=== PATIENT | female | born 1965 | race Caucasian/White ===

== ENCOUNTER 2017-05-03 00:47 | Inpatient (IN) | payer SELFPAY ==
[2017-05-03] VITALS (8 sets, daily range): BP systolic 103–121; BP diastolic 51–67; O2SAT 99
[~2017-05-03] VITALS: Ht 160 cm; Wt 91.0 kg
[2017-05-03] MEDS ORDERED: HYDR200T3 PO (01:03)
[2017-05-03] MEDS ORDERED: PRAV20TA2 PO (01:03)
[2017-05-03] MEDS ORDERED: WELLTAB40 PO (01:03)
[2017-05-03] MEDS ORDERED: LOPI600T PO (01:03)
[2017-05-03] MEDS ORDERED: AMAR1TAB5 PO (01:03)
[2017-05-03] MEDS ORDERED: ATEN50TA2 PO (01:03)
[2017-05-03] MEDS ORDERED: METF10004 PO (01:03)
[2017-05-03] MEDS ORDERED: BYDU1INJ SC (01:03)
[2017-05-03] MEDS ORDERED: PROBCAP8 PO (01:03)
[2017-05-03] MEDS ORDERED: LISI2.5T3 PO (01:03)
[2017-05-03] MEDS ORDERED: CYMB1CAP5 PO (01:03)
[2017-05-03] MEDS ORDERED: APIDINJ2 SC (01:03)
[2017-05-03] MEDS ORDERED: TRES1INJ2 SC (01:03)
[2017-05-03] MEDS ORDERED: [UNRECOGNIZED DRUG - CODE] PO (01:03)
[2017-05-03 02:07] LABS: ABG BASE EXCESS 2.1 (-2.0-2.0); ABG HCO3 26.8 MEQ/L (22.0-26.0); ABG PARTIAL PRESSURE CO2 42.5 mmHg (35.0-45.0); ABG PARTIAL PRESSURE O2 86.7 mmHg (75.0-100.0); ABG STANDARD HCO3 26.3 MEQ/L (22.0-26.0); ABG TOTAL CO2 28.1 MEQ/L (22.0-29.0); ABG pH (ARTERIAL) 7.418 UNITS (7.350-7.450)
[2017-05-03 02:13] LABS: BASO # 0.1 K/mm3 (0.0-0.2); BASO % 0.6 % (0.0-1.0); EOS # 0.4 K/mm3 (0.0-0.50); EOS % 3.6 % (0.0-3.0); LARGE UNSTAINED CELL # 0.1 K/mm3 (0.0-0.4); LARGE UNSTAINED CELL % 1.4 % (0.0-4.0); LYMPH # 2.2 K/mm3 (1.5-4.5); MEAN CORPUSCULAR HEMOGLOBIN 29.2 pg (27.0-33.0); MEAN CORPUSCULAR HGB CONC 34.4 g/dl (32.0-36.5); MEAN CORPUSCULAR VOLUME 84.9 fl (80.0-96.0); MONO # 0.6 K/mm3 (0.0-0.8); NEUTROPHILS # 6.7 K/mm3 (1.8-7.7); NEUTROPHILS % 67.3 % (36.0-66.0); PLATELET COUNT, AUTOMATED 307 k/mm3 (150-450); RED CELL DISTRIBUTION WIDTH 14.1 % (11.5-14.5); WHITE BLOOD COUNT 9.9 K/mm3 (4.0-10.0)
[2017-05-03 02:18] LABS: INR 0.94
[2017-05-03 02:31] LABS: ANION GAP 8 MEQ/L (8-16); BLOOD UREA NITROGEN 14 MG/DL (7-18); CARBON DIOXIDE LEVEL 28 MEQ/L (21-32); CHLORIDE LEVEL 102 MEQ/L (98-107); CREATININE FOR GFR 0.65 MG/DL (0.55-1.02); GLOMERULAR FILTRATION RATE > 60.0 (>51); GLUCOSE, FASTING 115 MG/DL (70-105); POTASSIUM SERUM 4.1 MEQ/L (3.5-5.1); SODIUM LEVEL 138 MEQ/L (136-145)
[2017-05-03] MEDS ORDERED: ISOVUE-370 76% 100ML VIAL (Q9967) As Ordered ONE (03:12)
--- NOTE | 2017-05-03 04:00 | REPUSA ---
CLINICAL HISTORY: Dyspnea, exclude PE. TECHNIQUE: Multiple incremental axial, coronal and oblique images are obtained from the thoracic inle t to the upper abdomen. Intravenous contrast material was administered as per pulmonary embolism prot ocol. COMMENTS: There is excellent opacification of pulmonary arterial system without evidence for pulmonary embolism . Aorta is of normal caliber without evidence for dissection or aneurysm. There is no evidence of pleural or parenchymal mass. There are no pleural effusions. There is no evid ence of hilar or mediastinal lymphadenopathy. The heart and great vessels are within normal limits. Images of the upper abdomen demonstrate no evidence of adrenal mass. The bony structures are free of lytic or blastic lesions. IMPRESSION: No evidence for pulmonary embolism. Basilar atelectatic lung changes. Thank you for your kind referral of this patient.
--- NOTE | 2017-05-03 04:40 | REPUSA ---
CLINICAL HISTORY: Altered level of consciousness. TECHNIQUE: Multiple axial brain CT scan sections were obtained from base to vertex without contrast a dministration. COMMENTS: The study shows normal configuration of sella turcica. There are no intra or extra-axial collections. There is no mass effect or midline shift. There is no evidence of hematoma formation. No hydrocephal us is present. No abnormal calcifications are noted. No significant abnormalities are seen either in the posterior fossa or supratentorial compartment. The sinuses and mastoid air cells are patent. IMPRESSION: No evidence of acute intracranial pathology. Thank you for your kind referral of this patient.
[2017-05-03] MEDS ORDERED: LORazepam 2 MG/ML VIAL (J2060) IV STA (05:25)
[2017-05-03 05:40] LABS: CSF TUBE# CELL CNT TUBE 4
[2017-05-03 05:41] LABS: APPEARANCE, CSF CLEAR (CLEAR); COLOR, CSF COLORLESS (COLORLESS); CSF DILUENT LOT # 6277
[2017-05-03 05:51] LABS: GLUCOSE CSF 80 MG/DL (40-75)
[2017-05-03 05:58] LABS: RBC CSF AUTO 88 /mm3 (0-0); WBC CSF AUTO 1 /mm3 (0-10)
[2017-05-03 05:59] LABS: CSF DIFF IF INDICATED? NO (NO)
[2017-05-03] MEDS ORDERED: GLIM2TAB PO (06:00)
[2017-05-03] MEDS ORDERED: TYLE500T78 PO (06:00)
[2017-05-03] MEDS ORDERED: TYLE1TAB5 PO (06:00)
[2017-05-03] MEDS ORDERED: ACET50TAOT PO (06:00)
[2017-05-03] MEDS ORDERED: TYLE650T35 PO (06:00)
[2017-05-03] MEDS ORDERED: PATIENT COMMENT ×2 (06:02→06:03)
[2017-05-03] MEDS ORDERED: GLUCAGON FOR INJ 1 MG VIAL (J1610) SC PRN (06:15)
[2017-05-03] MEDS ORDERED: DEXTROSE 50% 50 ML SYRINGE IV PRN (06:15)
[2017-05-03] MEDS ORDERED: GLUCOSE 4 GM CHEW TABLET PO PRN (06:15)
[2017-05-03] MEDS: NS 1,000 ML IV SCH ×2 (06:29→23:45)
[2017-05-03] MEDS: HumaLOG INSULIN (NovoLOG) PER UNIT SC SCH ×3 (08:23→17:08)
[2017-05-03] MEDS ORDERED: GLIM4TAB PO (08:59)
[2017-05-03 09:02] LABS: CSF TUBE# LDH TUBE 1; LDH CSF 31 U/L
[2017-05-03] MEDS: GEMFIBROZIL 600 MG TAB PO SCH ×2 (12:11→21:06)
[2017-05-03] MEDS: ENOXAPARIN 40 MG/0.4 ML SYRINGE (J1650) SC SCH (12:11)
[2017-05-03] MEDS: HYDROXYCHLOROQUINE 200 MG TAB PO SCH ×2 (12:12→21:05)
[2017-05-03] MEDS: ATENOLOL 50 MG TAB PO SCH (12:12)
[2017-05-03] MEDS: PRAVASTATIN 20 MG TAB PO SCH (12:12)
[2017-05-03] MEDS: buPROPion **XL** TABLET 150MG (WELLBUTRIN XL) PO SCH (12:13)
--- NOTE | 2017-05-03 13:19 | HPE ---
DATE OF ADMISSION: 05/03/2017 Most of the history is obtained from the patient who is a good historian. CHIEF COMPLAINT: Change in gait, sensory changes, moving of the body. 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 At that time, the patient states that she began to have weakness that slowly ascended up the legs and peaked in her abdomen and did not require that she be intubated. The patient's disease thereafter began to improve. The patient states that over the last three months she has had symptoms of tingling in both legs which has slowly now begun to be accompanied by weakness and difficulty with ambulation. The patient states this started in her ankles down and has progressed now to her knees and is slowly working up towards her hips and that she now feels tingling and changing sensation in bilateral hands at the tips. The patient came to the emergency room because she felt like she had chest tightness and felt like she might be beginning to have some shortness of breath. The patient does state that she has had a viral infection prior to the beginning of this back in November 2016. She has not been around any sick contacts recently. She has not had any other flares of a possible Guillain-Lusby type syndrome over the last few years. The patient denies any unintended weight loss. She denies any night sweats. PAST MEDICAL HISTORY (significant for): 1. Guillain-Lusby syndrome as above. 2. Lupus. 3. Diabetes mellitus type 2. 4. Obstructive sleep apnea, currently on CPAP therapy. 5. Hyperlipidemia. 6. Hypertension. 7. Depression. CURRENT MEDICATIONS (include): - atenolol 50 mg daily - Wellbutrin 300 mg daily - Cymbalta 30 mg at bedtime - gemfibrozil 600 mg twice daily - hydroxychloroquine 200 mg twice daily - lisinopril 2.5 mg daily - pravastatin 20 mg daily - glimepiride 2 mg twice daily - metformin 1000 mg twice daily - acetaminophen as needed - Apidra SoloStar 35 units subcutaneously twice daily - exenatide 2 mg subcutaneously weekly - Probiotic once daily - Tresiba 20 units subcutaneously daily ALLERGIES: - KEFLEX SOCIAL HISTORY: The patient denies any tobacco, ethanol or drug use. PREVIOUS SURGERIES (include): 1. Gallbladder resection. 2. sections times four. FAMILY HISTORY: Significant for diabetes mellitus in sister and mother. REVIEW OF SYSTEMS: Other than the above mentioned, denies any other constitutional symptoms or any cardiopulmonary, digestive, endocrine, hematological, psychiatric, neurological, musculoskeletal, or dermatological disease. PHYSICAL EXAMINATION: On admission to the emergency room, pulse 92, blood pressure 118/64, breathing 18, and afebrile. GENERAL APPEARANCE: 52-year-old white female currently laying in bed in anxiety. EYE EXAM: Pupils equally round and reactive to light. Without icterus. OROPHARYNGEAL EXAM: Oropharyngeal exam with dentition in good condition. NECK EXAM: No thyromegaly. Trachea midline. Neck is supple. LYMPHATICS EXAM: No cervical or axillary lymphadenopathy. CARDIAC EXAM: Regular rate and rhythm. No rubs, murmurs, or gallops. No jugular venous distention. No edema. RESPIRATORY EXAM: Clear to auscultation bilaterally with good effort. ABDOMINAL EXAM: Nondistended. Nontender. Normal bowel sounds. No masses palpated. PERIPHERAL EXAM: No clubbing, cyanosis or edema noted. NEUROLOGICAL EXAM: Notable for inability to elicit reflexes at the knees bilaterally and at the ankles bilaterally. The patient has normal strength in the upper extremities bilaterally and slightly decreased strength in the lower extremities bilaterally. Gait is extremely abnormal with shuffling and inability to machine pecan picker legs, which appears to be a decrease in strength proximally. LABORATORIES: The patient's white cell count is 10,000, hematocrit 33, platelet count of 307, with MCV of 85, RDW 14. Chemistries show a sodium of 138, potassium 4.1, BUN and creatinine of 14 over 0.65, total CK 55, normal troponin. PT/INR normal. ABG shows a pH of 7.418, pCO2 43, pO2 87, and a bicarbonate of 27. The patient had a lumbar puncture (LP) done and spinal fluid shows 1 white cell and 80 red blood cells with an elevation in glucose to 80 and an elevation in protein to 110. The rest is currently pending. The patient also had a CTA of the chest which was negative for pulmonary embolism (PE). She underwent a CT of the brain which was essentially unremarkable. ASSESSMENT: This is a 52-year-old female currently undergoing workup as an outpatient for possible Guillain-Lusby syndrome. The patient has abnormalities in gait and now has lumbar puncture showing elevated protein with normal white cell count which is suspicious for Guillain-Lusby among other demyelinating type inflammatory syndromes. The patient is exhibiting both sensory and motor abnormalities which make myasthenia gravis as well as Eaton-Lambert less likely. The patient is going to be admitted for further work up at this time and treatment. PROBLEMS: 1. Abnormal gait: Will admit the patient as an inpatient to the medical-surgical unit, LP has been done and is currently pending at this time, will add Lyme antibody and check Lyme peripherally as well, obtain a neurological evaluation for further evaluation, suspicious for possible Guillain-Lusby syndrome, consider MRI of the spine, consider EMG, physical therapy and occupational therapy evaluations will also be given. 2. Diabetes mellitus type 2: Will continue with insulin and sliding scale at this time. 3. Obstructive sleep apnea: Will continue with CPAP and oxygen at this time. 4. Hyperlipidemia: Will continue with current medications. For deep vein thrombosis (DVT) prophylaxis, the patient will be on Lovenox once daily and diet will be a regular diet.
--- NOTE | 2017-05-03 13:21 | REP ---
MRI cervical spine without and with IV gadolinium: History: Guillain-[place] versus transverse myelitis. Gadolinium enhancement dose: 18 ml of intravenous ProHance. Technique: Sagittal and axial T1 and T2-weighted scans are acquired in the usual fashion with and without fat saturation. Sequences include spin echo, turbo spin-echo, and STIR imaging sequences. Post gadolinium enhanced axial and sagittal images are included. MRI findings: There is straightening of the normal cervical lordosis. Cortical and medullary bone signal intensity are normal. There are degenerative disc changes at C5-C6 and C6-C7. At C5-6, axial and sagittal images demonstrate a large disc herniation left paracentral orientation producing moderate to severe cord compression and central canal stenosis. The disc protrusion measures 6 mm in anteroposterior by 12 mm in medial to lateral by 14 mm in craniocaudal span. There is both cranial and caudal extension. The cord is displaced dorsally into the right and compressed and indented. There is bilateral uncovertebral spurring mild in degree at C5-6. At C6-7, there are similar changes somewhat less pronounced with moderate sized left paracentral disc protrusion measuring 5 mm x 9 mm x 10 mm. There is moderate cord compression along the left ventral lateral margin. There is uncovertebral spurring bilaterally at C6-7. This is a little more pronounced than that seen at C5-6. Central canal stenosis is seen. At C7-T1, there is a central focal disc protrusion effacing the ventral subarachnoid space but not compressing the cord. At C4-5, there is mild diffuse disc bulging without cord compression. At C3-4 and C2-3, no significant finding. Impression: Moderate cord compression seen due to large left-sided disc herniations at C5-6 and C6-7. Smaller central C7-T1 disc herniation is seen. Diffuse disc bulging C4-5. No abnormal cord signal intensity is seen. Signed by Slade Jimenez MD 05/03/2017 01:40 P
--- NOTE | 2017-05-03 13:21 | REP ---
Thoracic spine MRI without and with IV gadolinium: History: Guillain-Webster syndrome versus transverse myelitis. Numbness and pain in hands. Numbness from the feet to the chest. No known injury. Symptoms 3 weeks in duration. Technique: Sagittal and axial T1 and T2-weighted scans are acquired in the usual fashion with and without fat saturation. Sequences include spin echo, turbo spin-echo, and STIR imaging sequences. Post gadolinium enhanced axial and sagittal T1-weighted images are also acquired. MRI findings: Thoracic vertebral body heights are preserved. Alignment is normal. There is mild degenerative disc disease in the mid thoracic and lower thoracic spine. No bony destructive lesion is seen. The thoracic cord is normal in coarse, caliber, and signal intensity on T1 and T2-weighted scans. There is a right paracentral focal disc protrusion at the T7-T8 intervertebral disc. This flattens the ventral margin of the thecal sac and subtly flattens the ventral margin of the cord. There is mild central bulging of the T11-12 disc margin. No cord compression is seen. No other thoracic disc herniation is appreciated. No neural foraminal lesion is seen. No abnormal cord edema is appreciated. Post gadolinium enhanced images show no abnormal gadolinium enhancement. Impression: Focal disc protrusion in the thoracic spine at the T7-T8 indenting the ventral margin of the cord. Mild degenerative disc changes. No other cord compressive lesion seen. No abnormal cord signal intensity to suggest transverse myelitis or demyelinating lesion. Otherwise unremarkable MRI thoracic spine. Signed by Slade Jimenez MD 05/03/2017 01:40 P
--- NOTE | 2017-05-03 13:21 | REP ---
MRI BRAIN WITHOUT AND WITH IV GADOLINIUM: HISTORY: Numbness and pain in the feet, chest and hands for approximately [address] study is from earlier on this date. TECHNIQUE: Axial and sagittal imaging planes are utilized for T1 and T2-weighted scans. Sequences include spin-echo, fast spin echo, FLAIR, and diffusion weighted sequences. Post gadolinium enhanced imaging is acquired as well. The gadolinium enhancement dose is 18 mL of intravenous ProHance. MRI FINDINGS: Bony calvarium is intact. There is no MR evidence of significant paranasal sinus disease. No intraorbital abnormality is seen. The deep facial and skull base soft tissues are normal and symmetric. Craniocervical junction is unremarkable as is upper cervical cord. There is no evidence of intracranial mass lesion. No extra-axial fluid collection is seen. There is no evidence of infarction or acute ischemia on diffusion weighted scans. No significant white matter lesion is seen. Post gadolinium enhanced images show no abnormal gadolinium enhancement. IMPRESSION: Unremarkable brain MRI study without and with IV gadolinium. No acute intracranial abnormality. Signed by Slade Jimenez MD 05/03/2017 01:40 P
--- NOTE | 2017-05-03 15:16 | REP ---
CT study of the cervical spine without contrast: History: Question DISH. Preop for navigation stealth protocol. Moderate cord compression due to disc protrusion seen on MR cervical spine. Technique: Helical scanning is acquired and overlapping 2 mm high resolution axial images were generated and reviewed at bone and soft tissue window settings. Coronal and sagittal multiplanar re-formations images are generated. CT findings: There is straightening of the normal cervical lordosis. There is no evidence of cervical spine element fracture. No skull base fracture is seen. Cervical vertebral body heights are preserved. Alignment is normal. Facet joints are normally aligned bilaterally at each cervical level on multiplanar re-formations images. There is no evidence of intraspinal or paraspinal hematoma. No extra vertebral abnormality is seen. There is osteoarthritic sclerosis and narrowing at the articulation between the dens and the anterior arch of C1. At C5-6, there is disc space narrowing. There is a large densely calcified left paracentral disc protrusion osteophyte complex at C5-6 producing central canal stenosis just to the left of midline. This corresponds with the MR findings. At C6-7, there is a similar calcified disc protrusion complex to the left of midline producing central canal stenosis as well. The canal shows mild congenital stenosis as well at these two levels. Impression: Heavily calcified disc herniation and osteophyte complex to the left of midline at C5-6 and at C6-7. Moderate central canal stenosis at both of these levels. This corresponds to the MR findings. Signed by Slade Jimenez MD 05/03/2017 04:31 P
[2017-05-03] MEDS ORDERED: IMMUNE GLOBULIN IV SCH (19:45)
[2017-05-03] MEDS ORDERED: DILUENT IV SCH (19:45)
[2017-05-03] MEDS: DULoxetine 30 MG CAP (CYMBALTA) PO SCH (21:06)
[2017-05-03] MEDS: LISINOPRIL *2.5 MG* TAB PO SCH (21:06)
[2017-05-03] MEDS: IMMUNE GLOBULIN 10% 5GM 5 GM in APPROPRIATE DILUENT 1 EA IV SCH (21:12)
[2017-05-03] MEDS: IMMUNE GLOBULIN 10% 10GM 100ML 10 GM in APPROPRIATE DILUENT 1 EA IV SCH (22:05)
[2017-05-03] MEDS: IMMUNE GLOBULIN 10% 20GM 200ML 20 GM in APPROPRIATE DILUENT 1 EA IV SCH (22:38)
[2017-05-04] VITALS (18 sets, daily range): BP systolic 103–127; BP diastolic 51–62
[2017-05-04] MEDS: NS 1,000 ML IV SCH (01:56)
[2017-05-04 05:33] LABS: BASO % 0.5 % (0.0-1.0); EOS # 0.2 K/mm3 (0.0-0.50); LARGE UNSTAINED CELL # 0.1 K/mm3 (0.0-0.4); LARGE UNSTAINED CELL % 0.8 % (0.0-4.0); LYMPH # 1.1 K/mm3 (1.5-4.5); LYMPH % 13.8 % (24.0-44.0); MEAN CORPUSCULAR HEMOGLOBIN 29.7 pg (27.0-33.0); MEAN CORPUSCULAR HGB CONC 34.3 g/dl (32.0-36.5); MEAN CORPUSCULAR VOLUME 86.5 fl (80.0-96.0); MONO # 0.4 K/mm3 (0.0-0.8); MONO % 5.9 % (0.0-5.0); NEUTROPHILS # 5.7 K/mm3 (1.8-7.7); NEUTROPHILS % 75.9 % (36.0-66.0); PLATELET COUNT, AUTOMATED 245 k/mm3 (150-450); WHITE BLOOD COUNT 7.5 K/mm3 (4.0-10.0)
[2017-05-04 05:52] LABS: ALBUMIN 3.7 GM/DL (3.2-5.2); ALBUMIN/GLOBULIN RATIO 0.95 (1.00-1.93); ALKALINE PHOSPHATASE 84 U/L (45-117); ALT/SGPT 26 U/L (12-78); ANION GAP 9 MEQ/L (8-16); AST/SGOT 18 U/L (15-37); BILIRUBIN,TOTAL 0.4 MG/DL (0.2-1.0); BLOOD UREA NITROGEN 11 MG/DL (7-18); CALCIUM LEVEL 8.4 MG/DL (8.5-10.1); CARBON DIOXIDE LEVEL 28 MEQ/L (21-32); CHLORIDE LEVEL 105 MEQ/L (98-107); CREATININE FOR GFR 0.53 MG/DL (0.55-1.02); GLOMERULAR FILTRATION RATE > 60.0 (>51); GLUCOSE, FASTING 113 MG/DL (70-105); POTASSIUM SERUM 4.1 MEQ/L (3.5-5.1); SODIUM LEVEL 142 MEQ/L (136-145); TOTAL PROTEIN 7.6 GM/DL (6.4-8.2)
[2017-05-04] MEDS: HumaLOG INSULIN (NovoLOG) PER UNIT SC SCH ×4 (07:22→21:10)
[2017-05-04] MEDS: GEMFIBROZIL 600 MG TAB PO SCH ×2 (08:42→21:09)
--- NOTE | 2017-05-04 08:42 | ECGEPIP ---
Stationary ECG Study [facility] - ED Test Date: 2017-05-03 Pat Name: KANDIS MEDINA Department: Room: - Gender: F Digital Marketing Manager: : 1965 Requested By: COLTON ZENG Order Number: [id number] Reading MD: Rubi Schneider Measurements Intervals Boyd Rate: 87 P: 35 SC: 136 QRS: 45 QRSD: 92 T: 35 QT: 361 QTc: 436 Interpretive Statements SINUS RHYTHM NSTTW ABNORMALITY, CLINICAL CORRELATION NO PRIOR FOR COMPARISON Electronically Signed On 05-04-2017 8:42:28 EDT by Rubi Schneider
[2017-05-04] MEDS: ATENOLOL 50 MG TAB PO SCH (08:43)
[2017-05-04] MEDS: buPROPion **XL** TABLET 150MG (WELLBUTRIN XL) PO SCH (08:43)
[2017-05-04] MEDS: ENOXAPARIN 40 MG/0.4 ML SYRINGE (J1650) SC SCH (08:43)
[2017-05-04] MEDS: HYDROXYCHLOROQUINE 200 MG TAB PO SCH ×2 (08:43→21:09)
[2017-05-04] MEDS: PRAVASTATIN 20 MG TAB PO SCH (08:43)
--- NOTE | 2017-05-04 15:03 | CR ---
DATE OF CONSULTATION: 05/03/2017 REASON FOR CONSULTATION: Evaluation for lower extremity weakness and suspicion for demyelinating polyneuropathy. HISTORY OF PRESENT ILLNESS: Eliz House is a 52-year-old female with past medical history significant for Guillain-[place] syndrome at the age of 19. The patient states that she was at her normal state of health until around November, where she came down with the flu. Soon after that the patient started to notice worsening baseline paresthesias of her toes traveling up her leg. The patient noted both legs involved. The patient's symptoms traumatically worsened over the past 2 weeks. She underwent EMG nerve conduction study approximately within the past 2 weeks with evidence of acute on chronic active denervation of the lower extremities with axonal and demyelinating sensory greater than peripheral polyneuropathy. The patient states that the symptoms have been ascending in nature starting in the toes, feet and ankles up the legs. By the time they reached her knees, she started to notice them in her fingertips. This included the palms of her hands. The patient has had significant weakness in bilateral deltoids, triceps, all lower extremity musculature. The patient denies any change in bowel or bladder habits. MRI of the cervical spine reveals moderate cord compression at C5-6, C6-7. Literature does point towards ascending paralysis and paresthesias occurring in cord compression, which can also be seen in chronic inflammatory demyelinating polyneuropathy (CIDP). The patient did have a lumbar puncture (LP) which showed elevated protein of 108.7 with a glucose of 80. Patients who have poorly controlled diabetes can show elevation of protein within the spinal fluid. Patients who have cord compression can also show signs of elevated protein in the spinal fluid. The patient states that between Sunday and this past Sunday the numbness significantly progressed. At one point she felt that her breathing was compromised; however, she states that she was most likely panicking and her breathing today is at her baseline state. The patient has history of lupus with flare-ups including hip pain, butterfly rash. The patient states she has fallen three times in the past month. The patient tries to ambulate with stiffened legs to prevent falls. The patient has already been evaluated by neurosurgery, Dr. Gavino Campos, who has discussed his surgical opinion with the patient. The patient is fully aware that her cervical spinal stenosis is quite significant and she will likely need surgery regardless if the patient has CIDP with progressive ascending paralysis and weakness. The patient is agreeable to go ahead and start a 5-day course of IVIG dosed at 0.4 gm/kg per day for 5 days. She will assess if there is any improvement in her paresthesias and weakness. Physical therapy is recommended to be completed throughout the entire hospital stay. This will determine whether the patient would be a candidate for acute versus subacute rehabilitation upon discharge. The patient denies any involvement of cranial nerves. She denies any diplopia, change in vision, taste, speech, hearing. PAST MEDICAL HISTORY: 1. Guillain-[place] syndrome. 2. Lupus. 3. Diabetes type 2. 4. Obstructive sleep apnea currently on continuous positive airway pressure (CPAP) therapy. 5. Hyperlipidemia. 6. Hypertension. 7. Depression. 8. Obesity. PRESENT MEDICATIONS: - atenolol 50 mg by mouth daily - Wellbutrin 300 mg by mouth daily - Cymbalta 30 mg by mouth nightly - gemfibrozil 600 mg by mouth twice a day - hydroxychloroquine 200 mg by mouth twice a day - lisinopril 2.5 mg by mouth daily - lovastatin 20 mg by mouth daily - glimepiride 2 mg by mouth twice a day - metformin 1000 mg by mouth twice a day - acetaminophen as needed - Apidra SoloSTAR 35 units subcutaneously twice a day - exenatide 2 mg subcutaneous weekly - probiotic by mouth daily - Tresiba 20 units subcutaneous daily ALLERGIES: KEFLEX. SOCIAL HISTORY: The patient denies use of any alcohol, tobacco or illicit drugs. PAST SURGICAL HISTORY: 1. Cholecystectomy. 2. section times four. FAMILY HISTORY: Noncontributory. REVIEW OF SYSTEMS: 14-point review of systems obtained and is negative except as per history of present illness (HPI). PHYSICAL EXAMINATION: Blood pressure 109/53, pulse rate is 92, oxygenation 96% on room air, respiratory rate 18, temperature 97.7 degrees Fahrenheit. Current height 5 feet 3 inches. Current weight is 90.2 kg. The patient is alert, oriented to person, place and time. Speech, language, comprehension and repetition are intact. Pupils are 3 mm, round, reactive to light. Extraocular movements are intact in all directions without nystagmus. Sensation V1, V2, V3 is intact to light touch. Palate elevates symmetrically. Tongue is midline. No weakness of sternocleidomastoid bilaterally. Hearing subjectively equal to finger rub. Motor examination: There is no pronator drift. The patient demonstrates 4/5 weakness of bilateral deltoids, 4- in bilateral triceps, 4+ in bilateral biceps, 4- in bilateral wrist extensor, finger extensor, finger flexors are 4+, iliopsoas is 4+, quadriceps are 5, anterior tibialis are 4-. Deep tendon reflexes are absent throughout with trace at the triceps bilaterally. Babinski signs are absent. Sensory demonstrates significant vibratory loss at the great toes, ankles and patellas. The patient's gait is extremely unsteady. The patient stiffens up and has to hold onto objects near her to maintain balance. Coordination: Normal [id number] without any signs of ataxia or dysmetria. Sensory in the upper extremities is intact to temperature and light touch. ASSESSMENT: 1. Weakness in arms and legs, possibly multifactorial. 2. MRI evidence of moderate cord compression at C5-6, C6-7 with some component of myelopathy and weakness within the arms and legs. 3. Focal disc protrusion at T7-T8 indenting ventral margin of the spinal cord possibly causing transverse myelitis like symptom at that level. 4. Ascending sensory changes, as well as weakness which can be seen in cases of cord compression; however, can also be seen in cases of chronic inflammatory demyelinating polyneuropathy. Given most recent EMG nerve conduction study evidence of acute on chronic active denervation of the lower extremity musculature, chronic inflammatory demyelinating polyneuropathy (CIDP) can be considered in conjunction with elevated cerebrospinal fluid (CSF) protein. Elevated CSF protein can be seen in patients with cord compression, as well as poorly controlled diabetics. PLAN: 1. The patient agrees to go ahead and start treatment for suspected CIDP with IVIG 0.4 gm/kg each day for 5 days. 2. Continue aggressive physical therapy (PT), occupational therapy (OT). 3. Management of moderate cervical cord compression at C5-6, C6-7 as per neurosurgery. 4. The patient will likely need EMG nerve conduction study completed as an outpatient in the upper extremities. 5. The patient can followup at the [facility] office 2-4 weeks after discharge for further followup and evaluation.
--- NOTE | 2017-05-04 15:07 | IPNPDOC ---
Text Note Date of Service The patient was seen on 05/04/17. NOTE Subjective: Patient is a 52 year old female with a PMHx of HTN, DLP, NIDDM2, WALKER on CPAP, SLE, Hx of GBS (1983) and Depression who presented to the ER with complaints of difficulty with ambulation and ascending sensory changes with possible weakness. She has noted that she has had these symptoms start on her feed and progress up to her hips. She recently started experiencing this on her hands. She noted that her abdomen was beginning to feel abnormal as well. Patient was seen and examined at the bedside. She has received a dose of IVIG yesterday and notes that today she may have had some improvement, however she is not sure if it is significant. She denies any SOB, cough or incontinence. She noted that she has been having a difficult time coughing Objective: Vitals (See below) General: Lying in bed, no acute distress, comfortable, AAOx3 HEENT: NC, AT CVS: RRR, +S1S2 Lungs: Fair air entry b/l, -w/r/r Abdomen: Soft, ND, NT, +BSx4 Extremities: - Edema, - Calf tenderness Assessment and plan: 1. Difficulty with ambulation / Ascending paralysis - possibly 2/2 GBS, possibly 2/2 herniation of disks and cord compression - Presented with worsening symptoms; reported to have sensory changes from December , weakness from February - Recent outpatient EMG nerve conduction of lower extremities revealed acute on chronic active denervation of the lower extremity - Physical with mild weakness bilaterally at lower legs - s/p Lumbar puncture; elevation in proteins; remainder of workup pending - Brain MRI 05/03: negative - Cervical MRI 05/03: C5-6 & C6-7 with disc herniations and moderate cord compression - Thoracic MRI 05/03: T7-8 disc protrusion with indenting of ventral margin of cord - c/w FVC and NIF monitoring [id number]; ICU setting for monitoring of respiratory compromise - c/w IVIG (Day #2 of 5) - Dr. Fatima (Neuro) and Dr. Campos (Neurosurgery) on consult; 2. HTN - c/w Atenolol and Lisinopril 3. DLP - c/w Gemfibrozil and Pravastatin 4. NIDDM2 - c/w ISS 5. WALKER on CPAP 6. SLE - c/w Hydroxychloroquine 7. Depression - c/w Duloxetine and Bupropion 8. DVT prophylaxis - c/w Lovenox VS,Fishbone, I+O VS, Fishbone, I+O Laboratory Tests 05/04/17 04:49 Red Blood Count 3.74 L, Mean Corpuscular Volume 86.5, Mean Corpuscular Hemoglobin 29.7, Mean Corpuscular Hemoglobin Concent 34.3, Red Cell Distribution Width 14.0, Neutrophils (%) (Auto) 75.9 H, Lymphocytes (%) (Auto) 13.8 L, Monocytes (%) (Auto) 5.9 H, Eosinophils (%) (Auto) 3.0, Basophils (%) ( Auto) 0.5, Neutrophils # (Auto) 5.7, Lymphocytes # (Auto) 1.1 L, Monocytes # ( Auto) 0.4, Eosinophils # (Auto) 0.2, Basophils # (Auto) 0.0, Calcium Level 8.4 # L, Aspartate Amino Transf (AST/SGOT) 18, Alanine Aminotransferase (ALT/SGPT) 26 , Alkaline Phosphatase 84, Total Bilirubin 0.4, Total Protein 7.6, Albumin 3.7 Vital Signs Date Time Temp Pulse Resp B/P (MAP) Pulse Ox O2 Delivery O2 Flow Rate FiO2 05/04/17 12:00 100.0 91 17 104/60 (75) 97 Room Air I&O- Last 24 Hours up to 6 AM 05/04/17 06:00 Intake Total 2870 ml Output Total 1850 ml Balance 1020 ml MARITA PRASAD MD May 04, 2017 14:47
[2017-05-04] MEDS: ACETAMINOPHEN TAB 650MG DOSE (2X325MG) PO PRN (15:40)
[2017-05-04] MEDS: LISINOPRIL *2.5 MG* TAB PO SCH (21:09)
[2017-05-04] MEDS: DULoxetine 30 MG CAP (CYMBALTA) PO SCH (21:09)
[2017-05-04] MEDS: IMMUNE GLOBULIN 10% 10GM 100ML 10 GM in APPROPRIATE DILUENT 1 EA IV SCH (21:11)
[2017-05-04] MEDS: IMMUNE GLOBULIN 10% 20GM 200ML 20 GM in APPROPRIATE DILUENT 1 EA IV SCH (22:51)
[2017-05-05] VITALS: BP 108/51
[2017-05-05] MEDS: IMMUNE GLOBULIN 10% 5GM 5 GM in APPROPRIATE DILUENT 1 EA IV SCH ×2 (00:06→20:56)
[2017-05-05 04:00] VITALS: BP 115/56
[2017-05-05 07:30] LABS: INR 0.99
[2017-05-05 08:00] VITALS: BP 123/61
[2017-05-05 08:02] LABS: ALBUMIN 3.9 GM/DL (3.2-5.2); ALBUMIN/GLOBULIN RATIO 0.81 (1.00-1.93); ALKALINE PHOSPHATASE 83 U/L (45-117); ALT/SGPT 30 U/L (12-78); ANION GAP 8 MEQ/L (8-16); AST/SGOT 32 U/L (15-37); BILIRUBIN,TOTAL 0.3 MG/DL (0.2-1.0); BLOOD UREA NITROGEN 10 MG/DL (7-18); CALCIUM LEVEL 8.7 MG/DL (8.5-10.1); CARBON DIOXIDE LEVEL 26 MEQ/L (21-32); CHLORIDE LEVEL 107 MEQ/L (98-107); CREATININE FOR GFR 0.58 MG/DL (0.55-1.02); GLOMERULAR FILTRATION RATE > 60.0 (>51); GLUCOSE, FASTING 139 MG/DL (70-105); MAGNESIUM LEVEL 2.3 MG/DL (1.8-2.4); POTASSIUM SERUM 3.9 MEQ/L (3.5-5.1); SODIUM LEVEL 141 MEQ/L (136-145); TOTAL PROTEIN 8.7 GM/DL (6.4-8.2)
[2017-05-05 08:05] LABS: BASO % 0.8 % (0.0-1.0); EOS # 0.2 K/mm3 (0.0-0.50); EOS % 5.4 % (0.0-3.0); LARGE UNSTAINED CELL # 0.1 K/mm3 (0.0-0.4); LARGE UNSTAINED CELL % 1.5 % (0.0-4.0); LYMPH # 1.1 K/mm3 (1.5-4.5); LYMPH % 21.2 % (24.0-44.0); MEAN CORPUSCULAR HEMOGLOBIN 29.7 pg (27.0-33.0); MEAN CORPUSCULAR HGB CONC 34.5 g/dl (32.0-36.5); MEAN CORPUSCULAR VOLUME 85.9 fl (80.0-96.0); MONO # 0.4 K/mm3 (0.0-0.8); MONO % 8.1 % (0.0-5.0); NEUTROPHILS # 2.9 K/mm3 (1.8-7.7); NEUTROPHILS % 63.1 % (36.0-66.0); PLATELET COUNT, AUTOMATED 229 k/mm3 (150-450); WHITE BLOOD COUNT 4.6 K/mm3 (4.0-10.0)
[2017-05-05] MEDS: GEMFIBROZIL 600 MG TAB PO SCH ×2 (08:39→20:55)
[2017-05-05] MEDS: buPROPion **XL** TABLET 150MG (WELLBUTRIN XL) PO SCH (08:39)
[2017-05-05] MEDS: HYDROXYCHLOROQUINE 200 MG TAB PO SCH ×2 (08:39→20:54)
[2017-05-05] MEDS: PRAVASTATIN 20 MG TAB PO SCH (08:39)
[2017-05-05] MEDS: ATENOLOL 50 MG TAB PO SCH (08:39)
[2017-05-05] MEDS: HumaLOG INSULIN (NovoLOG) PER UNIT SC SCH ×4 (08:39→21:00)
[2017-05-05] MEDS: ENOXAPARIN 40 MG/0.4 ML SYRINGE (J1650) SC SCH (08:40)
--- NOTE | 2017-05-05 11:35 | IPNPDOC ---
Text Note Date of Service The patient was seen on 05/05/17. NOTE Subjective: Patient is a 52 year old female with a PMHx of HTN, DLP, NIDDM2, WALKER on CPAP, SLE, Hx of GBS (1983) and Depression who presented to the ER with complaints of difficulty with ambulation and ascending sensory changes with possible weakness. She has noted that she has had these symptoms start on her feed and progress up to her hips. She recently started experiencing this on her hands. She noted that her abdomen was beginning to feel abnormal as well. Patient was seen and examined at the bedside. Patient has advised me that she feels like her hands have more numbness and tingling than usual. She denies any change in her breathing or strength of her extremities. Has been tolerating the IVIG that was administered over the last 2 days. Objective: Vitals (See below) General: Lying in bed, no acute distress, comfortable, AAOx3 HEENT: NC, AT CVS: RRR, +S1S2 Lungs: Fair air entry b/l, -w/r/r Abdomen: Soft, ND, NT, +BSx4 Extremities: - Edema, - Calf tenderness Neuro: 4/5 at upper extremities bilaterally, 4/5 strength at lower extremities bilaterally, more pronounced at dorsiflexion of bilateral feet Assessment and plan: 1. Difficulty with ambulation / Ascending paralysis - possibly 2/2 GBS, possibly 2/2 herniation of disks and cord compression - Presented with worsening symptoms; reported to have sensory changes from December , weakness started February - Recent outpatient EMG nerve conduction of lower extremities revealed acute on chronic active denervation of the lower extremity - Physical with mild weakness bilaterally at lower legs - s/p Lumbar puncture; elevation in proteins; remainder of workup pending - Brain MRI 05/03: negative - Cervical MRI 05/03: C5-6 & C6-7 with disc herniations and moderate cord compression - Thoracic MRI 05/03: T7-8 disc protrusion with indenting of ventral margin of cord - c/w FVC and NIF monitoring; remains stable at this time - ICU setting for monitoring of respiratory compromise - c/w IVIG (Day #3 of 5) - Dr. Fatima (Neuro) and Dr. Campos (Neurosurgery) on consult 2. HTN - c/w Atenolol and Lisinopril 3. DLP - c/w Gemfibrozil and Pravastatin 4. NIDDM2 - c/w ISS 5. WALKER on CPAP 6. SLE - c/w Hydroxychloroquine 7. Depression - c/w Duloxetine and Bupropion 8. DVT prophylaxis - c/w Lovenox Disposition: - Will complete 5 days of IVIG - Possible surgical procedure to be decided upon VS,Fishbone, I+O VS, Fishbone, I+O Laboratory Tests 05/05/17 07:08 Red Blood Count 3.57 L, Mean Corpuscular Volume 85.9, Mean Corpuscular Hemoglobin 29.7, Mean Corpuscular Hemoglobin Concent 34.5, Red Cell Distribution Width 14.0, Neutrophils (%) (Auto) 63.1, Lymphocytes (%) (Auto) 21.2 L, Monocytes (%) (Auto) 8.1 H, Eosinophils (%) (Auto) 5.4 H, Basophils (%) (Auto) 0.8, Neutrophils # (Auto) 2.9, Lymphocytes # (Auto) 1.1 L, Monocytes # ( Auto) 0.4, Eosinophils # (Auto) 0.2, Basophils # (Auto) 0.0, Calcium Level 8.7, Aspartate Amino Transf (AST/SGOT) 32, Alanine Aminotransferase (ALT/SGPT) 30, Alkaline Phosphatase 83, Total Bilirubin 0.3, Total Protein 8.7 H, Albumin 3.9 Vital Signs Date Time Temp Pulse Resp B/P (MAP) Pulse Ox O2 Delivery O2 Flow Rate FiO2 05/05/17 08:39 94 123/61 05/05/17 08:00 97.8 16 97 Room Air I&O- Last 24 Hours up to 6 AM 05/05/17 06:00 Intake Total 1220 ml Output Total 3150 ml Balance -1930 ml MARITA PRASAD MD May 05, 2017 11:35
[2017-05-05 12:00] VITALS: BP 132/69
[2017-05-05] MEDS: ACETAMINOPHEN TAB 650MG DOSE (2X325MG) PO PRN ×2 (12:05→20:07)
[2017-05-05 16:00] VITALS: BP 123/59
[2017-05-05 20:00] VITALS: BP 135/65
[2017-05-05] MEDS: DULoxetine 30 MG CAP (CYMBALTA) PO SCH (20:54)
[2017-05-05] MEDS: LISINOPRIL *2.5 MG* TAB PO SCH (20:54)
[2017-05-05] MEDS: IMMUNE GLOBULIN 10% 10GM 100ML 10 GM in APPROPRIATE DILUENT 1 EA IV SCH (21:04)
[2017-05-05] MEDS: IMMUNE GLOBULIN 10% 20GM 200ML 20 GM in APPROPRIATE DILUENT 1 EA IV SCH (21:04)
[2017-05-06] VITALS (12 sets, daily range): BP systolic 99–128; BP diastolic 53–67
[2017-05-06 04:43] LABS: BASO % 0.8 % (0.0-1.0); EOS # 0.2 K/mm3 (0.0-0.50); EOS % 4.5 % (0.0-3.0); LARGE UNSTAINED CELL # 0.1 K/mm3 (0.0-0.4); LARGE UNSTAINED CELL % 1.9 % (0.0-4.0); LYMPH # 1.3 K/mm3 (1.5-4.5); LYMPH % 23.5 % (24.0-44.0); MEAN CORPUSCULAR HEMOGLOBIN 29.5 pg (27.0-33.0); MEAN CORPUSCULAR HGB CONC 34.4 g/dl (32.0-36.5); MEAN CORPUSCULAR VOLUME 85.6 fl (80.0-96.0); MONO # 0.4 K/mm3 (0.0-0.8); MONO % 8.2 % (0.0-5.0); PLATELET COUNT, AUTOMATED 248 k/mm3 (150-450); RED CELL DISTRIBUTION WIDTH 13.9 % (11.5-14.5)
[2017-05-06 05:03] LABS: ALBUMIN 3.5 GM/DL (3.2-5.2); ALBUMIN/GLOBULIN RATIO 0.59 (1.00-1.93); ALKALINE PHOSPHATASE 78 U/L (45-117); ALT/SGPT 32 U/L (12-78); ANION GAP 10 MEQ/L (8-16); AST/SGOT 33 U/L (15-37); BILIRUBIN,TOTAL 0.2 MG/DL (0.2-1.0); BLOOD UREA NITROGEN 12 MG/DL (7-18); CALCIUM LEVEL 9.1 MG/DL (8.5-10.1); CARBON DIOXIDE LEVEL 25 MEQ/L (21-32); CHLORIDE LEVEL 105 MEQ/L (98-107); CREATININE FOR GFR 0.59 MG/DL (0.55-1.02); GLOMERULAR FILTRATION RATE > 60.0 (>51); GLUCOSE, FASTING 151 MG/DL (70-105); MAGNESIUM LEVEL 2.3 MG/DL (1.8-2.4); POTASSIUM SERUM 3.9 MEQ/L (3.5-5.1); SODIUM LEVEL 140 MEQ/L (136-145); TOTAL PROTEIN 9.4 GM/DL (6.4-8.2)
[2017-05-06] MEDS: HumaLOG INSULIN (NovoLOG) PER UNIT SC SCH ×4 (08:51→20:31)
[2017-05-06] MEDS: ENOXAPARIN 40 MG/0.4 ML SYRINGE (J1650) SC SCH (08:51)
[2017-05-06] MEDS: GEMFIBROZIL 600 MG TAB PO SCH ×2 (08:52→20:31)
[2017-05-06] MEDS: HYDROXYCHLOROQUINE 200 MG TAB PO SCH ×2 (08:52→20:31)
[2017-05-06] MEDS: buPROPion **XL** TABLET 150MG (WELLBUTRIN XL) PO SCH (08:52)
[2017-05-06] MEDS: ATENOLOL 50 MG TAB PO SCH (08:52)
[2017-05-06] MEDS: PRAVASTATIN 20 MG TAB PO SCH (08:52)
[2017-05-06] MEDS: ACETAMINOPHEN TAB 650MG DOSE (2X325MG) PO PRN (11:36)
--- NOTE | 2017-05-06 13:22 | IPNPDOC ---
Text Note Date of Service The patient was seen on 05/06/17. NOTE Subjective: Patient is a 52 year old female with a PMHx of HTN, DLP, NIDDM2, WALKER on CPAP, SLE, Hx of GBS (1983) and Depression who presented to the ER with complaints of difficulty with ambulation and ascending sensory changes with possible weakness. She has noted that she has had these symptoms start on her feed and progress up to her hips. She recently started experiencing this on her hands. She noted that her abdomen was beginning to feel abnormal as well. Patient was seen and examined at the bedside. Patient still feels as though her legs have numbness and tingling that has not resolved. She does not have any change in her weakness or gait abnormalities. She denies any SOB, cough or palpitations. Objective: Vitals (See below) General: Lying in bed, no acute distress, comfortable, AAOx3 HEENT: NC, AT CVS: RRR, +S1S2 Lungs: Fair air entry b/l, -w/r/r Abdomen: Soft, ND, NT, +BSx4 Extremities: - Edema, - Calf tenderness Neuro: 4/5 at upper extremities bilaterally, 4/5 strength at lower extremities bilaterally, again more pronounced at dorsiflexion of bilateral feet Assessment and plan: 1. Difficulty with ambulation / Ascending paralysis - possibly 2/2 GBS, possibly 2/2 herniation of disks and cord compression - Presented with worsening symptoms; reported to have sensory changes from December , weakness started February - Recent outpatient EMG nerve conduction of lower extremities revealed acute on chronic active denervation of the lower extremity - Physical with mild weakness bilaterally; more pronounced at lower legs - s/p Lumbar puncture; elevation in proteins; remainder of workup pending - Brain MRI 05/03: negative - Cervical MRI 05/03: C5-6 & C6-7 with disc herniations and moderate cord compression - Thoracic MRI 05/03: T7-8 disc protrusion with indenting of ventral margin of cord - c/w FVC and NIF monitoring; shows some improvement - ICU setting for monitoring of respiratory compromise - c/w IVIG (Day #4 of 5) - Dr. Fatima (Neuro) and Dr. Campos (Neurosurgery) on consult - May consider outpatient Neurosurgery, if cleared by Neurosurgery inpatient 2. HTN - c/w Atenolol and Lisinopril 3. DLP - c/w Gemfibrozil and Pravastatin 4. NIDDM2 - c/w ISS 5. WALKER on CPAP 6. SLE - c/w Hydroxychloroquine 7. Depression - c/w Duloxetine and Bupropion 8. DVT prophylaxis - c/w Lovenox Disposition: - Will complete 5 days of IVIG - Possible surgical procedure to be decided upon VS,Fishbone, I+O VS, Fishbone, I+O Laboratory Tests 05/06/17 04:10 Red Blood Count 3.68 L, Mean Corpuscular Volume 85.6, Mean Corpuscular Hemoglobin 29.5, Mean Corpuscular Hemoglobin Concent 34.4, Red Cell Distribution Width 13.9, Neutrophils (%) (Auto) 61.0, Lymphocytes (%) (Auto) 23.5 L, Monocytes (%) (Auto) 8.2 H, Eosinophils (%) (Auto) 4.5 H, Basophils (%) (Auto) 0.8, Neutrophils # (Auto) 3.0, Lymphocytes # (Auto) 1.3 L, Monocytes # ( Auto) 0.4, Eosinophils # (Auto) 0.2, Basophils # (Auto) 0.0, Calcium Level 9.1, Aspartate Amino Transf (AST/SGOT) 33, Alanine Aminotransferase (ALT/SGPT) 32, Alkaline Phosphatase 78, Total Bilirubin 0.2, Total Protein 9.4 H, Albumin 3.5 Vital Signs Date Time Temp Pulse Resp B/P (MAP) Pulse Ox O2 Delivery O2 Flow Rate FiO2 05/06/17 08:52 90 111/53 05/06/17 08:00 98.7 18 97 Room Air I&O- Last 24 Hours up to 6 AM 05/06/17 06:00 Intake Total 1440 ml Output Total 1900 ml Balance -460 ml MARITA PRASAD MD May 06, 2017 13:22
[2017-05-06] MEDS: LISINOPRIL *2.5 MG* TAB PO SCH (20:30)
[2017-05-06] MEDS: DULoxetine 30 MG CAP (CYMBALTA) PO SCH (20:31)
[2017-05-06] MEDS: IMMUNE GLOBULIN 10% 5GM 5 GM in APPROPRIATE DILUENT 1 EA IV SCH (20:54)
[2017-05-06] MEDS: IMMUNE GLOBULIN 10% 10GM 100ML 10 GM in APPROPRIATE DILUENT 1 EA IV SCH (21:50)
[2017-05-06] MEDS: IMMUNE GLOBULIN 10% 20GM 200ML 20 GM in APPROPRIATE DILUENT 1 EA IV SCH (22:29)
[2017-05-07] VITALS (10 sets, daily range): BP systolic 111–147; BP diastolic 55–71
[2017-05-07 04:52] LABS: ALBUMIN 3.6 GM/DL (3.2-5.2); ALBUMIN/GLOBULIN RATIO 0.56 (1.00-1.93); ALKALINE PHOSPHATASE 80 U/L (45-117); ALT/SGPT 34 U/L (12-78); ANION GAP 10 MEQ/L (8-16); AST/SGOT 35 U/L (15-37); BILIRUBIN,TOTAL 0.2 MG/DL (0.2-1.0); BLOOD UREA NITROGEN 11 MG/DL (7-18); CALCIUM LEVEL 9.3 MG/DL (8.5-10.1); CARBON DIOXIDE LEVEL 26 MEQ/L (21-32); CHLORIDE LEVEL 104 MEQ/L (98-107); CREATININE FOR GFR 0.56 MG/DL (0.55-1.02); GLOMERULAR FILTRATION RATE > 60.0 (>51); GLUCOSE, FASTING 144 MG/DL (70-105); MAGNESIUM LEVEL 2.3 MG/DL (1.8-2.4); POTASSIUM SERUM 3.7 MEQ/L (3.5-5.1); SODIUM LEVEL 140 MEQ/L (136-145)
[2017-05-07 05:01] LABS: BASO % 0.8 % (0.0-1.0); EOS # 0.3 K/mm3 (0.0-0.50); EOS % 6.4 % (0.0-3.0); LARGE UNSTAINED CELL # 0.1 K/mm3 (0.0-0.4); LARGE UNSTAINED CELL % 1.6 % (0.0-4.0); LYMPH # 1.3 K/mm3 (1.5-4.5); LYMPH % 23.5 % (24.0-44.0); MEAN CORPUSCULAR HEMOGLOBIN 28.5 pg (27.0-33.0); MEAN CORPUSCULAR HGB CONC 33.4 g/dl (32.0-36.5); MEAN CORPUSCULAR VOLUME 85.4 fl (80.0-96.0); MONO # 0.4 K/mm3 (0.0-0.8); MONO % 6.7 % (0.0-5.0); NEUTROPHILS # 3.2 K/mm3 (1.8-7.7); NEUTROPHILS % 60.9 % (36.0-66.0); PLATELET COUNT, AUTOMATED 245 k/mm3 (150-450); RED CELL DISTRIBUTION WIDTH 13.9 % (11.5-14.5); WHITE BLOOD COUNT 5.3 K/mm3 (4.0-10.0)
[2017-05-07] MEDS: PRAVASTATIN 20 MG TAB PO SCH (08:40)
[2017-05-07] MEDS: buPROPion **XL** TABLET 150MG (WELLBUTRIN XL) PO SCH (08:41)
[2017-05-07] MEDS: GEMFIBROZIL 600 MG TAB PO SCH ×2 (08:41→21:16)
[2017-05-07] MEDS: ACETAMINOPHEN TAB 650MG DOSE (2X325MG) PO PRN (08:41)
[2017-05-07] MEDS: ATENOLOL 50 MG TAB PO SCH (08:41)
[2017-05-07] MEDS: ENOXAPARIN 40 MG/0.4 ML SYRINGE (J1650) SC SCH (08:42)
[2017-05-07] MEDS: HumaLOG INSULIN (NovoLOG) PER UNIT SC SCH ×4 (08:49→21:00)
[2017-05-07] MEDS: HYDROXYCHLOROQUINE 200 MG TAB PO SCH ×2 (10:56→21:16)
--- NOTE | 2017-05-07 14:27 | IPNPDOC ---
Text Note Date of Service The patient was seen on 05/07/17. NOTE Subjective: Patient is a 52 year old female with a PMHx of HTN, DLP, NIDDM2, WALKER on CPAP, SLE, Hx of GBS (1983) and Depression who presented to the ER with complaints of difficulty with ambulation and ascending sensory changes with possible weakness. She has noted that she has had these symptoms start on her feed and progress up to her hips. She recently started experiencing this on her hands. She noted that her abdomen was beginning to feel abnormal as well. Patient was seen and examined at the bedside. Patient notes that her numbness and tingling of her legs feels the same, although no change in her strength since admission. Denies any breathing problems. Objective: Vitals (See below) General: Lying in bed, no acute distress, comfortable, AAOx3 HEENT: NC, AT CVS: RRR, +S1S2 Lungs: Fair air entry b/l, -w/r/r Abdomen: Soft, ND, NT, +BSx4 Extremities: - Edema, - Calf tenderness Neuro: 4/5 at upper extremities bilaterally, 4/5 strength at lower extremities bilaterally, again more pronounced at dorsiflexion of bilateral feet Assessment and plan: 1. Difficulty with ambulation / Ascending paralysis - likely 2/2 herniation of disks and cord compression, less likely 2/2 GBS - Presented with worsening symptoms; reported to have sensory changes from December , weakness started February - Recent outpatient EMG nerve conduction of lower extremities revealed acute on chronic active denervation of the lower extremity - Physical with mild weakness bilaterally; more pronounced at lower legs - s/p Lumbar puncture; elevation in proteins; negative for oligoclonal bands - Brain MRI 05/03: negative - Cervical MRI 05/03: C5-6 & C6-7 with disc herniations and moderate cord compression - Thoracic MRI 05/03: T7-8 disc protrusion with indenting of ventral margin of cord - c/w FVC and NIF monitoring; remain stable - ICU setting for monitoring of respiratory compromise - c/w IVIG (Day #5 of 5) - Dr. Fatima / Dr. Sevilla (Neuro) and Dr. Campos (Neurosurgery) on consult - Discussed case with Neurosurgery; plan for outpatient surgery, patient wants referral to [facility] 2. HTN - c/w Atenolol and Lisinopril 3. DLP - c/w Gemfibrozil and Pravastatin 4. NIDDM2 - c/w ISS 5. WALKER on CPAP 6. SLE - c/w Hydroxychloroquine 7. Depression - c/w Duloxetine and Bupropion 8. DVT prophylaxis - c/w Lovenox Disposition: - Will complete 5 days of IVIG - Possible surgical procedure to be completed as an outpatient as per Dr. Campos VS,Donaldo, I+O VS, Donaldo, I+O Laboratory Tests 05/07/17 04:16 Red Blood Count 3.77 L, Mean Corpuscular Volume 85.4, Mean Corpuscular Hemoglobin 28.5, Mean Corpuscular Hemoglobin Concent 33.4, Red Cell Distribution Width 13.9, Neutrophils (%) (Auto) 60.9, Lymphocytes (%) (Auto) 23.5 L, Monocytes (%) (Auto) 6.7 H, Eosinophils (%) (Auto) 6.4 H, Basophils (%) (Auto) 0.8, Neutrophils # (Auto) 3.2, Lymphocytes # (Auto) 1.3 L, Monocytes # ( Auto) 0.4, Eosinophils # (Auto) 0.3, Basophils # (Auto) 0.0, Calcium Level 9.3, Aspartate Amino Transf (AST/SGOT) 35, Alanine Aminotransferase (ALT/SGPT) 34, Alkaline Phosphatase 80, Total Bilirubin 0.2, Total Protein 10.0 H, Albumin 3.6 Vital Signs Date Time Temp Pulse Resp B/P (MAP) Pulse Ox O2 Delivery O2 Flow Rate FiO2 05/07/17 14:00 96.6 86 18 117/70 (86) 97 Room Air I&O- Last 24 Hours up to 6 AM 05/07/17 05:59 Intake Total 1790 ml Output Total 1550 ml Balance 240 ml MARITA PRASAD MD May 07, 2017 14:27
[2017-05-07] MEDS: DULoxetine 30 MG CAP (CYMBALTA) PO SCH (21:16)
[2017-05-07] MEDS: LISINOPRIL *2.5 MG* TAB PO SCH (21:17)
[2017-05-07] MEDS: IMMUNE GLOBULIN 10% 5GM 5 GM in APPROPRIATE DILUENT 1 EA IV SCH (21:18)
[2017-05-07] MEDS: IMMUNE GLOBULIN 10% 10GM 100ML 10 GM in APPROPRIATE DILUENT 1 EA IV SCH (23:09)
[2017-05-08] VITALS (11 sets, daily range): BP systolic 121–155; BP diastolic 59–82
[2017-05-08 00:11] LABS: IMMUNOGLOBULIN M CSF 0.08 mg/dL (0.00-0.26); MYELIN BASIC PROTEIN, CSF 3.4 ng/mL (0.0-1.2)
[2017-05-08] MEDS: IMMUNE GLOBULIN 10% 20GM 200ML 20 GM in APPROPRIATE DILUENT 1 EA IV SCH (00:46)
[2017-05-08 07:16] LABS: BASO % 0.6 % (0.0-1.0); EOS # 0.2 K/mm3 (0.0-0.50); EOS % 4.4 % (0.0-3.0); LARGE UNSTAINED CELL # 0.1 K/mm3 (0.0-0.4); LARGE UNSTAINED CELL % 2.8 % (0.0-4.0); LYMPH % 19.9 % (24.0-44.0); MEAN CORPUSCULAR HEMOGLOBIN 29.4 pg (27.0-33.0); MEAN CORPUSCULAR HGB CONC 34.6 g/dl (32.0-36.5); MONO # 0.5 K/mm3 (0.0-0.8); MONO % 9.4 % (0.0-5.0); NEUTROPHILS # 3.1 K/mm3 (1.8-7.7); NEUTROPHILS % 62.9 % (36.0-66.0); PLATELET COUNT, AUTOMATED 274 k/mm3 (150-450); RED CELL DISTRIBUTION WIDTH 13.8 % (11.5-14.5); WHITE BLOOD COUNT 4.9 K/mm3 (4.0-10.0)
[2017-05-08 07:40] LABS: ALBUMIN 3.5 GM/DL (3.2-5.2); ALBUMIN/GLOBULIN RATIO 0.49 (1.00-1.93); ALKALINE PHOSPHATASE 84 U/L (45-117); ALT/SGPT 37 U/L (12-78); ANION GAP 10 MEQ/L (8-16); AST/SGOT 42 U/L (15-37); BILIRUBIN,TOTAL 0.3 MG/DL (0.2-1.0); BLOOD UREA NITROGEN 13 MG/DL (7-18); CALCIUM LEVEL 9.6 MG/DL (8.5-10.1); CARBON DIOXIDE LEVEL 25 MEQ/L (21-32); CHLORIDE LEVEL 103 MEQ/L (98-107); CREATININE FOR GFR 0.61 MG/DL (0.55-1.02); GLOMERULAR FILTRATION RATE > 60.0 (>51); GLUCOSE, FASTING 144 MG/DL (70-105); MAGNESIUM LEVEL 2.2 MG/DL (1.8-2.4); SODIUM LEVEL 138 MEQ/L (136-145); TOTAL PROTEIN 10.7 GM/DL (6.4-8.2)
[2017-05-08] MEDS: ENOXAPARIN 40 MG/0.4 ML SYRINGE (J1650) SC SCH (08:28)
[2017-05-08] MEDS: PRAVASTATIN 20 MG TAB PO SCH (08:29)
[2017-05-08] MEDS: ATENOLOL 50 MG TAB PO SCH (08:29)
[2017-05-08] MEDS: HumaLOG INSULIN (NovoLOG) PER UNIT SC SCH ×2 (08:29→13:23)
[2017-05-08] MEDS: HYDROXYCHLOROQUINE 200 MG TAB PO SCH (08:30)
[2017-05-08] MEDS: buPROPion **XL** TABLET 150MG (WELLBUTRIN XL) PO SCH (08:30)
[2017-05-08] MEDS: GEMFIBROZIL 600 MG TAB PO SCH (08:30)
[2017-05-08] MEDS ORDERED: SENOKOT S TAB PO PRN (10:30)
--- NOTE | 2017-05-09 13:34 | DSES ---
DATE OF ADMISSION: 05/03/2017 DATE OF DISCHARGE: 05/08/2017 CONSULTANTS DURING THIS ADMISSION: Dr. Fatima, neurology. Neurosurgeon, Dr. Campos. PRIMARY CARE PROVIDER: PROCEDURES DURING THIS ADMISSION: Lumbar puncture on 05/03/2017. PRIMARY DISCHARGE DIAGNOSES: 1. Chronic inflammatory demyelinating polyneuropathy. 2. History of Guillain-Fairfield. 3. Moderate cord compression at C5-C6, C6-C7 with myelopathy and weakness in arms and legs, focal disc protrusion T7-T8 indenting ventral margin of spinal cord causing transverse myelitis like symptoms, ascending sensory changes. 4. Hypertension. 5. Dyslipidemia. 6. [id number] type 2 diabetes. 7. Obstructive sleep apnea on continuous positive airway pressure (CPAP). 8. Systemic lupus erythematosus. 9. Depression. 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 The patient was admitted for abnormal gait and underwent lumbar puncture. MRI of the spine. Neurology, Dr. Fatima, was consulted, with concern for possible Guillain-Fairfield syndrome and was started on IVIG with significant improvement. MRI of the cervical and thoracic spine shows a cord compression, moderate, due to large left sided disc herniation at C5-C7. Thoracic spine MRI showing T7 to T8 focal disc protrusion. No other cord compressive lesions. No abnormal cord signal intensity to suggest transverse myelitis or demyelinating lesion. MRI of the brain shows no acute CVA. Cervical spine CT shows heavily calcified disc herniation at C5 to C7 with moderate central canal stenosis at both of these levels, corresponding to the MRI findings. The patient was seen by Dr. Campos, neurosurgery and since the patient had refused surgery, she is to have followup with neurosurgeon of her choice at [facility] in [place] or [facility] in [place]. Examination had not changed significantly. Despite IVIG, continues to have weakness bilaterally, 4/5 motor function, bilateral deltoid, triceps, biceps in upper extremities. Iliopsoas and anterior tibialis at 4/5 strength. Deep tendon reflexes are absent throughout. Babinski absent. The patient continues to have significant vibratory loss at the great toes, ankles and patella. Unsteady gait with normal finger to nose testing and no signs of ataxia or dysmetria. Sensory is intact in upper extremities, temperature and light touch. Despite aggressive physical therapy (PT) and occupational therapy (OT) and IVIG for 5 days, no significant improvement was found. Recommendations are to obtain a second and third opinion. LABORATORY DATA ON DISCHARGE: White count 4.9, hemoglobin 11, hematocrit 33, platelet count 274. Sodium 138, potassium 4, chloride 103, bicarbonate 25, BUN 13, creatinine 0.61, glucose of 144. IMAGING STUDIES: MRI of the brain showed no acute CVA, unremarkable MRI. No acute intracranial abnormalities. Cervical spine MRI shows moderate cord compression due to large left sided disc herniation, C5 to C7. Thoracic MRI shows moderate disc protrusion mid thoracic spine at T7 to T8. Time spent on discharge: 30 minutes. MTDD
[2017-05-29 10:45] LABS: CSF PHOSPHORYLATED-TAU PROTEIN SEE SEPARATE REPORT; CSF TOTAL-TAU PROTEIN SEE SEPARATE REPORT
[2017-05-29 10:46] LABS: CSF AMYLOID BETA PROTEIN SEE SEPARATE REPORT
== END 2017-05-08 15:30 | disposition home health service (06) | DRG 43 ==
LOC: M ED 00:47 → M ED INP 06:34 → M ICU 11:23 → M MSPAV 05-07 09:40
PROVIDERS: ADMIT Internal Medicine; ATTEND General Practice
DX: G61.81 Chronic inflammatory demyelinating polyneuritis (principal); I10 Essential (primary) hypertension; E78.5 Hyperlipidemia, unspecified; E11.9 Type 2 diabetes mellitus without complications; F32.9 Major depressive disorder, single episode, unspecified; G47.33 Obstructive sleep apnea (adult) (pediatric); M50.022 Cervical disc disorder at C5-C6 level with myelopathy; M50.023 Cervical disc disorder at C6-C7 level with myelopathy; Z79.899 Other long term (current) drug therapy; R26.89 Other abnormalities of gait and mobility; Z88.8 Allergy status to other drugs, medicaments and biological substances; E66.9 Obesity, unspecified

== ENCOUNTER 2017-05-25 10:25 | Inpatient (IN) | payer SELFPAY ==
[~2017-05-25] VITALS: Ht 160 cm; Wt 86.0 kg
[~2017-05-25 10:25] MED LIST: ACET50TAOT PO; AMAR1TAB5 PO; APIDINJ2 SC; ATEN50TA2 PO; BYDU1INJ SC; CYMB1CAP5 PO; DOCUSATE SODIUM 100 MG CAP PO SCH; GLIM2TAB PO; GLIM4TAB PO; HYDR200T3 PO; LISI2.5T3 PO; LOPI600T PO; METF10004 PO; PATIENT COMMENT; PRAV20TA2 PO; PROBCAP8 PO; TRES1INJ2 SC; TYLE1TAB5 PO; TYLE500T78 PO; TYLE650T35 PO; WELLTAB40 PO; [UNRECOGNIZED DRUG - CODE] PO
[2017-05-25] MEDS ORDERED: oxyCODONE 5MG TAB PO PRN (11:45)
[2017-05-25] MEDS ORDERED: DEXTROSE 50% 50 ML SYRINGE IV PRN (11:45)
[2017-05-25] MEDS ORDERED: GLUCOSE 4 GM CHEW TABLET PO PRN (11:45)
[2017-05-25] MEDS ORDERED: GLUCAGON FOR INJ 1 MG VIAL (J1610) SC PRN (11:45)
[2017-05-25 12:00] VITALS: BP 105/66
[2017-05-25] MEDS ORDERED: FAMO1TAB25 PO (13:33)
[2017-05-25] MEDS ORDERED: SENN1TAB10 PO (13:33)
[2017-05-25] MEDS ORDERED: ACET1TAB17 PO (13:33)
[2017-05-25] MEDS ORDERED: HEPA500020 SC (13:33)
[2017-05-25] MEDS ORDERED: MILKSUS5 PO (13:33)
[2017-05-25] MEDS ORDERED: BISA10SU4 PR (13:33)
[2017-05-25] MEDS ORDERED: INSULANT SC (13:33)
[2017-05-25] MEDS ORDERED: DEXA4TA PO (13:33)
[2017-05-25] MEDS ORDERED: CYCL10TA PO (13:33)
[2017-05-25] MEDS ORDERED: INSUHUMDS SC (13:33)
[2017-05-25] MEDS ORDERED: ONDA4VLL IV (13:33)
[2017-05-25] MEDS ORDERED: STOO100C PO (13:33)
[2017-05-25 14:00] VITALS: BP 130/60
[2017-05-25] MEDS: CYCLOBENZAPRINE 10 MG TAB PO SCH ×2 (15:02→21:30)
--- NOTE | 2017-05-25 16:51 | PMRNOTEPD ---
PMR Note H&P dictated #[id number]. 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 Patient for trial of neuro rehabilitation to try and regain adaptive mobility ADLs with wheelchair versus walker. Patient needs to use her cervical collar when not supported in bed. Patient needs to not be exercise to fatigue due to nature of CIDP. Past medical history: Lupus, Guillain-Patiño syndrome, obesity, obstructive sleep apnea on CPAP, hypertension/hyperlipidemia Allergies Keflex We'll begin trial of 3 hours per day of neuro rehabilitation with rehabilitation nursing and physiatry. Estimated length of stay approximately 7 days. REBEKA HEDRICK MD May 25, 2017 16:51
[2017-05-25] MEDS: HumaLOG INSULIN (NovoLOG) PER UNIT SC SCH (17:21)
[2017-05-25] MEDS: LACTOBACILLUS ACIDOPHILUS CAP (BACID) PO SCH (17:21)
[2017-05-25] MEDS: metFORMIN (GLUCOPHAGE) 1000 MG TABLET PO SCH (17:21)
--- NOTE | 2017-05-25 17:36 | PMRHPE ---
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 Dukes, which also included fusion. Patient, however, has demonstrated significant proximal weakness. HISTORY OF PRESENT ILLNESS: Patient is a 52-year-old white female who is right-hand dominant who in the spring had a flu-like illness and started developing proximal weakness in the hips and knees, limiting her ability to perform her normal functions at home. She had electrodiagnostic evaluation at [facility], showing acute on chronic polyneuropathy. She does have past history of lupus and also Guillan-Hanover syndrome at age 19. She was admitted to [facility] in the spring and treated with intravenous (IV) gammaglobulin; however, this did not reverse the course, and patient actually had some more rapid progression during this time. She was then further evaluated and seen at [facility] and had the cervical decompression; however, patient's principal deficits at this time are weakness in the shoulders, which appears related to the pain and discomfort from the cervical decompression as well as the hip and knee weakness, but also patient has noted her prior principally distal leg and foot as well as finger/hand numbness has spread, and she is now noting some decreased sensations up throughout the legs and arms into the chest. Patient is referred for acute rehabilitation as we are closer to her home in [place], [place]. PAST MEDICAL HISTORY: 1. As previously noted, Guillain-Hanover, age 19, while in [place]. 2. Diabetes mellitus, type 2, with polyneuropathy. 3. Positive JIM episode last spring. 4. Cervical compression status post C4-7 laminectomy and fusion. 5. Atherosclerotic cardiovascular disease, including hypertension, hyperlipidemia. 6. Patient also with obstructive sleep apnea, on continuous positive airway pressure (CPAP) and obesity. She has been evaluated for Lyme disease, which was negative. FAMILY HISTORY: Atherosclerotic cardiovascular disease, essentially noncontributory to patient's current condition. 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 She does not smoke, does not drink alcohol, and does not use illicit drugs. Lives with her and at least one son in the home. Was independent, though having some progressive decline in the last 5 months. She lives in a 2-story home, which can be configured to allow living on just the first floor. There appears to be a ramp and the option of entering via a 7-step area. REVIEW OF SYSTEMS: Includes the weakness and numbness along with cervical pain; otherwise 10-point review of systems. PHYSICAL EXAMINATION: Patient is an overweight, average-height, middle-aged white female of larger frame who weighs 81 kg approximately and is alert, well oriented, pleasant, and in mild musculoskeletal distress, principally around the neck. VITAL SIGNS: Showed temperature of 96.7, blood pressure 130/60, pulse 89, respirations 18, and patient is 98% on room air. HEENT: Normocephalic, atraumatic. Pupils are equal, round, reactive to light and accommodation, pupils being approximately 6 mm in diameter. Hearing is intact. Neck has incision that is stapled shut. It is only mildly tender. Does not have any warmth and only has mild edema. No drainage is seen. Thyroid normal texture and shape without goiters. Tongue is midline, and palate elevates easily. Face: Nares are patent. Septum is midline. LUNGS: Clear in all holley to auscultation. CORONARY: Shows a regular rate and rhythm with normal S1, S2 without S3, S4, murmurs, or rub. ABDOMEN: Obese, soft, nontender with normal bowel sounds present, and surprising , in spite of Lovenox injections, no ecchymosis. Bilateral upper and lower extremities with functional range of motion. Some guarding in the shoulders. All testing deferred to physical therapy (PT)/occupational therapy (OT) doing sensorimotor mapping. Lower extremities: Patient does have only fair plus to good minus strength in the hips and knees with good to good plus strength in the feet. Tone is within normal limits in bilateral lower extremities. Deep tendon reflexes, biceps, triceps, brachioradialis, knee jerk, ankle jerk is 0/4. There is no clonus present, and light touch vibration, so a stocking diminution for the distal third of the leg into the feet and throughout the palm into the hands but also below expected on bilateral thighs and upper extremity. Worse on the right than the left in the thighs. Patient is alert and oriented times four. Speech is clear, coherent, and appropriate. Affect is a little anxious but in general pleasant and cooperative. ASSESSMENT AND PLAN: 1. Rehabilitation of polyneuropathy, which appears to be some chronic inflammatory demyelinating polyneuropathy (CIDP) versus diabetic A myopathy with superimposed diabetic polyneuropathy. Patient needs to improve her mobility and activities of daily living (ADLs), wheelchair versus walker, to allow return to home and continuing therapy and strengthening of the bilateral upper and lower extremities. 2. Status post laminectomy with unclear related weakness to the cervical compression, as there is not increased tone, and patient actually has fairly good dexterity with her hands and fingers and handling things but is more limited what appears to be from the mechanical pain in trying to use the shoulder elevators, abductors, and adductors that would pull on the laminectomy/fusion site. I feel patient is tim to participate in and benefit from 3 hours of therapy per day, working in upper and lower extremity strengthening but also get good baseline sensorimotor mapping and compare this as patient goes through training. It is important not to overstretch muscles, as with the JIM this could lead to progressive weakening, so patient should exercise short of fatigue. With regard to the cervical laminectomy, patient should continue using a [place] collar whenever out of bed. 3. Diabetes. Will go ahead and continue patient on metformin 1000 mg twice a day and Amaryl 4 mg every morning with the Tresiba FlexTouch 20 units subcutaneous daily and then insulin sliding scale and before meals and at bedtime blood sugars. 4. Obstructive sleep apnea. Patient will use her continuous positive airway pressure (CPAP). The patient does have laminectomy fall precautions. Also not overtaxing the muscles and training and conditioning. POSTADMISSION PHYSICIAN EVALUATION: Patient is consistent with preadmission evaluation and screening, and I do feel she is able to benefit from participating in acute intensive rehabilitation. Depending on how her muscle fatigue goes, she should be able to do 3 hours of therapy per day, but we want to stop short of fatiguing out the muscles. I do anticipate she has a fair to good prognosis for returning home with family and progressing onto home care program. I see her estimated length of stay as approximately 7 days. Time spent on chart review, history and physical, and documentation: Greater than 70 minutes. GERARDO
[2017-05-25] MEDS: ACETAMINOPHEN TAB 650MG DOSE (2X325MG) PO PRN (19:48)
[2017-05-25 21:00] VITALS: BP 127/59
[2017-05-25] MEDS: DOCUSATE SODIUM 100 MG CAP PO SCH (21:30)
[2017-05-25] MEDS: GEMFIBROZIL 600 MG TAB PO SCH (21:31)
[2017-05-25] MEDS: HYDROXYCHLOROQUINE 200 MG TAB PO SCH (21:31)
[2017-05-25] MEDS: FAMOTIDINE 20 MG TAB PO SCH (21:31)
[2017-05-26] MEDS: ACETAMINOPHEN TAB 650MG DOSE (2X325MG) PO PRN (05:23)
[2017-05-26 05:43] VITALS: BP 126/61
[2017-05-26 06:48] LABS: BASO % 0.3 % (0.0-1.0); EOS # 0.4 K/mm3 (0.0-0.50); EOS % 2.6 % (0.0-3.0); LARGE UNSTAINED CELL # 0.2 K/mm3 (0.0-0.4); LARGE UNSTAINED CELL % 0.9 % (0.0-4.0); LYMPH # 4.1 K/mm3 (1.5-4.5); LYMPH % 22.9 % (24.0-44.0); MEAN CORPUSCULAR HEMOGLOBIN 30.2 pg (27.0-33.0); MEAN CORPUSCULAR HGB CONC 34.9 g/dl (32.0-36.5); MEAN CORPUSCULAR VOLUME 86.7 fl (80.0-96.0); MONO # 1.1 K/mm3 (0.0-0.8); MONO % 6.2 % (0.0-5.0); NEUTROPHILS # 11.5 K/mm3 (1.8-7.7); NEUTROPHILS % 67.1 % (36.0-66.0); PLATELET COUNT, AUTOMATED 522 k/mm3 (150-450); RED CELL DISTRIBUTION WIDTH 13.8 % (11.5-14.5); WHITE BLOOD COUNT 17.2 K/mm3 (4.0-10.0)
[2017-05-26 07:28] LABS: ALBUMIN 3.4 GM/DL (3.2-5.2); ALBUMIN/GLOBULIN RATIO 0.64 (1.00-1.93); ALKALINE PHOSPHATASE 158 U/L (45-117); ALT/SGPT 35 U/L (12-78); ANION GAP 12 MEQ/L (8-16); AST/SGOT 19 U/L (15-37); BILIRUBIN,TOTAL 0.3 MG/DL (0.2-1.0); BLOOD UREA NITROGEN 19 MG/DL (7-18); CALCIUM LEVEL 9.5 MG/DL (8.5-10.1); CARBON DIOXIDE LEVEL 22 MEQ/L (21-32); CHLORIDE LEVEL 100 MEQ/L (98-107); CREATININE FOR GFR 0.71 MG/DL (0.55-1.02); GLOMERULAR FILTRATION RATE > 60.0 (>51); GLUCOSE, FASTING 132 MG/DL (70-105); POTASSIUM SERUM 4.2 MEQ/L (3.5-5.1); SODIUM LEVEL 134 MEQ/L (136-145); TOTAL PROTEIN 8.7 GM/DL (6.4-8.2)
[2017-05-26] MEDS: TRESIBA FLEX TOUCH SC SCH (07:39)
[2017-05-26] MEDS: DULoxetine 30 MG CAP (CYMBALTA) PO SCH (07:40)
[2017-05-26] MEDS: HYDROXYCHLOROQUINE 200 MG TAB PO SCH ×2 (07:40→20:29)
[2017-05-26] MEDS: HumaLOG INSULIN (NovoLOG) PER UNIT SC SCH ×3 (07:40→17:03)
[2017-05-26] MEDS: GLIMEPIRIDE 2 MG TAB PO SCH (07:40)
[2017-05-26] MEDS: ATENOLOL 50 MG TAB PO SCH (07:40)
[2017-05-26] MEDS: DOCUSATE SODIUM 100 MG CAP PO SCH ×2 (07:41→20:25)
[2017-05-26] MEDS: metFORMIN (GLUCOPHAGE) 1000 MG TABLET PO SCH ×2 (07:41→17:04)
[2017-05-26] MEDS: PRAVASTATIN 20 MG TAB PO SCH (07:41)
[2017-05-26] MEDS: CYCLOBENZAPRINE 10 MG TAB PO SCH ×3 (07:41→20:25)
[2017-05-26] MEDS: buPROPion **XL** TABLET 150MG (WELLBUTRIN XL) PO SCH (07:41)
[2017-05-26] MEDS: LACTOBACILLUS ACIDOPHILUS CAP (BACID) PO SCH ×2 (07:41→17:03)
[2017-05-26] MEDS: GEMFIBROZIL 600 MG TAB PO SCH ×2 (07:41→20:29)
[2017-05-26] MEDS: FAMOTIDINE 20 MG TAB PO SCH ×2 (07:41→20:29)
[2017-05-26] MEDS: LISINOPRIL *2.5 MG* TAB PO SCH (07:42)
[2017-05-26 14:00] VITALS: BP 135/61
[2017-05-26 20:00] VITALS: BP 120/61
[2017-05-27 06:10] VITALS: BP 116/61
[2017-05-27] MEDS: FAMOTIDINE 20 MG TAB PO SCH ×2 (08:14→20:23)
[2017-05-27] MEDS: LACTOBACILLUS ACIDOPHILUS CAP (BACID) PO SCH ×2 (08:14→17:02)
[2017-05-27] MEDS: GEMFIBROZIL 600 MG TAB PO SCH ×2 (08:14→20:24)
[2017-05-27] MEDS: TRESIBA FLEX TOUCH SC SCH (08:14)
[2017-05-27] MEDS: HumaLOG INSULIN (NovoLOG) PER UNIT SC SCH ×3 (08:14→17:03)
[2017-05-27] MEDS: LISINOPRIL *2.5 MG* TAB PO SCH (08:15)
[2017-05-27] MEDS: ATENOLOL 50 MG TAB PO SCH (08:15)
[2017-05-27] MEDS: DULoxetine 30 MG CAP (CYMBALTA) PO SCH (08:15)
[2017-05-27] MEDS: PRAVASTATIN 20 MG TAB PO SCH (08:15)
[2017-05-27] MEDS: CYCLOBENZAPRINE 10 MG TAB PO SCH ×3 (08:15→20:24)
[2017-05-27] MEDS: GLIMEPIRIDE 2 MG TAB PO SCH (08:15)
[2017-05-27] MEDS: metFORMIN (GLUCOPHAGE) 1000 MG TABLET PO SCH ×2 (08:15→17:02)
[2017-05-27] MEDS: HYDROXYCHLOROQUINE 200 MG TAB PO SCH ×2 (08:15→20:23)
[2017-05-27] MEDS: buPROPion **XL** TABLET 150MG (WELLBUTRIN XL) PO SCH (08:20)
[2017-05-27] MEDS: DOCUSATE SODIUM 100 MG CAP PO SCH ×2 (08:20→20:24)
[2017-05-27] MEDS: ACETAMINOPHEN TAB 650MG DOSE (2X325MG) PO PRN ×2 (10:05→20:24)
[2017-05-27 14:00] VITALS: BP 109/56
[2017-05-27 20:00] VITALS: BP 109/58
[2017-05-28 06:00] VITALS: BP 116/67
[2017-05-28] MEDS: HumaLOG INSULIN (NovoLOG) PER UNIT SC SCH ×3 (07:30→16:57)
[2017-05-28] MEDS: TRESIBA FLEX TOUCH SC SCH (08:49)
[2017-05-28] MEDS: DOCUSATE SODIUM 100 MG CAP PO SCH ×2 (08:50→21:01)
[2017-05-28] MEDS: FAMOTIDINE 20 MG TAB PO SCH ×2 (08:50→21:01)
[2017-05-28] MEDS: GEMFIBROZIL 600 MG TAB PO SCH ×2 (08:50→21:02)
[2017-05-28] MEDS: LACTOBACILLUS ACIDOPHILUS CAP (BACID) PO SCH ×2 (08:50→16:57)
[2017-05-28] MEDS: buPROPion **XL** TABLET 150MG (WELLBUTRIN XL) PO SCH (08:50)
[2017-05-28] MEDS: PRAVASTATIN 20 MG TAB PO SCH (08:51)
[2017-05-28] MEDS: CYCLOBENZAPRINE 10 MG TAB PO SCH ×3 (08:51→21:01)
[2017-05-28] MEDS: LISINOPRIL *2.5 MG* TAB PO SCH (08:51)
[2017-05-28] MEDS: GLIMEPIRIDE 2 MG TAB PO SCH (08:51)
[2017-05-28] MEDS: HYDROXYCHLOROQUINE 200 MG TAB PO SCH ×2 (08:51→21:01)
[2017-05-28] MEDS: ATENOLOL 50 MG TAB PO SCH (08:51)
[2017-05-28] MEDS: metFORMIN (GLUCOPHAGE) 1000 MG TABLET PO SCH ×2 (08:51→16:57)
[2017-05-28] MEDS: DULoxetine 30 MG CAP (CYMBALTA) PO SCH (08:56)
[2017-05-28] MEDS: ACETAMINOPHEN TAB 650MG DOSE (2X325MG) PO PRN ×2 (13:56→21:01)
[2017-05-28 14:00] VITALS: BP 112/59
--- NOTE | 2017-05-28 15:56 | IPNPDOC ---
Production [employer] Plant [employer] Progress Note DATE OF SERVICE: 05/28/17 DATE OF ADMISSION: May 25, 2017 at 11:50 INPATIENT REHABILITATION ADMISSION DAY: #4 SUBJECTIVE: 52-year-old right-handed white female with polyneuropathy (CIDP versus diabetic amyotrophy, C5-6 compression status post C4-7 laminectomy and fusion). Patient with progressive proximal weakness also new numbness beyond stocking glove pattern now affecting upper aspects of the extremities as well as trunk. Patient for trial of neuro rehabilitation to try and regain adaptive mobility ADLs with wheelchair versus walker. Patient needs to use her cervical collar when not supported in bed. Patient needs to not be exercise to fatigue due to nature of CIDP. ALLERGIES: See Below MEDICATIONS: Reviewed, see below. OBJECTIVE: VITAL SIGNS: Please see below. PHYSICAL EXAMINATION: GENERAL: Obese middle-aged white female in very mild muscle skeletal distress with some diffuse weakness and proximal motor decline. HEENT: Normocephalic/atraumatic. CARDIOVASCULAR: Regular rate and rhythm with normal S1-S2 without S3-S4 murmurs or rubs. 2/4 bilateral radial pulses. LUNGS: All holley clear to auscultation. ABDOMEN: Obese, benign with normal bowel sounds in all quadrants. NEUROLOGICAL: Patient is alert and oriented 4. Speech is clear coherent and appropriate. Affect is in general pleasant cooperative but patient does have some anxiousness and flattening noted. Memory is intact. Patient with fair plus strength around the shoulders, hips and knees versus good minus to good strength in the more distal upper and lower extremities. Patient with stocking glove decrease light touch and vibration right greater than left but also some thigh and trunk decrease in sensation. SKIN: Grossly intact. LABORATORY DATA: Reviewed. Please see below. MICROBIOLOGY: Please see below. IMAGING: No new imaging. DVT prophylaxis ordered?: PAGE hose and sequential stockings. ASSESSMENT AND PLAN: 1. 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 She has been working very hard with physical and occupational therapy able to do 5 up-and-down on a stair and ambulate 150 feet. Most of her transfers are contact guard assist. She is doing well usually in the contact guard level in occupational therapies ADLs. However endurance is limited and patient needs more work on technique. Patient is still learning how to safely work around the proximal weakness and this led to her starting to fall doing stairs this afternoon however she was not injured as physical therapists and the student therapists were able to report her and lower her down to us seated position. Rehabilitation team rounds: Patient is very motivated and overall doing well but does need some more training and at this time we anticipate discharge approximately 06/01/17. 2. Possible urinary tract infection: UA reviewed and suggestive of a UTI. Patient denying any fever or chills or dysuria however her white blood cell count is 17.2 thousand. Therefore I will get a urine culture and sensitivity today. 3. Diabetes mellitus type 2 with polyneuropathy: Overall blood sugar control has been good since arriving here. No changes at this time. 4. Obstructive sleep apnea: Patient using her CPAP and at this time sleeping well. TIME SPENT: Chart Review, examination and documentation require greater than 25 minutes. Allergies Coded Allergies: Cephalexin (Verified Allergy, Unknown, 05/03/17) Vital Signs Vital Signs Date Time Temp Pulse Resp B/P (MAP) Pulse Ox O2 Delivery O2 Flow Rate FiO2 05/28/17 14:00 97.7 96 18 112/59 (76) 98 Room Air Laboratory Data Labs 24H Laboratory Tests 2 05/27/17 16:24: Bedside Glucose (Misc Panel) 201H 05/27/17 20:11: Bedside Glucose (Misc Panel) 136H 05/28/17 06:48: Bedside Glucose (Misc Panel) 106H 05/28/17 12:17: Bedside Glucose (Misc Panel) 103 Current Medications Current Medications Current Medications Acetaminophen (Tylenol Tab) 650 mg Q4HP PRN PO MILD PAIN (PS 1-4) Last administered on 05/28/17 13:56; Start 05/25/17 at 11:45; Stop 06/24/17 at 11:44 Atenolol (Tenormin) 50 mg DAILY PO Last administered on 05/28/17 08:51; Start 05/26/17 at 09:00; Stop 06/25/17 at 08:59 Bupropion HCl (Wellbutrin Xl) 300 mg DAILY PO Last administered on 05/28/17 08 :50; Start 05/26/17 at 09:00; Stop 06/25/17 at 08:59 Cyclobenzaprine HCl (Flexeril) 10 mg TID PO Last administered on 05/28/17 08: 51; Start 05/25/17 at 16:00; Stop 06/24/17 at 15:59 Dexamethasone (Decadron) 2 mg BID@0600,1800 PO ; Start 05/30/17 at 06:00; Stop 06/03/17 at 23:59 Dexamethasone (Decadron) 2 mg DAILY@0600 PO ; Start 06/04/17 at 06:00; Stop at 08:00 Dexamethasone (Decadron) 4 mg Q12H PO Last administered on 05/28/17 05:21; Start 05/25/17 at 18:00; Stop 05/29/17 at 17:59 Dextrose (Dextrose 50%) 25 ml ASDIRECTED PRN IV SEE LABEL COMMENTS; Start at 11:45; Stop 06/24/17 at 11:44 Docusate Sodium (Colace) 100 mg BID PO ; Start 05/25/17 at 09:00; Stop 05/25/17 at 13:58; Status DC Docusate Sodium (Colace) 100 mg BID PO Last administered on 05/28/17 08:50; Start 05/25/17 at 21:00; Stop 06/24/17 at 20:59 Duloxetine HCl (Cymbalta) 30 mg DAILY PO Last administered on 05/28/17 08:56; Start 05/26/17 at 09:00; Stop 06/25/17 at 08:59 Famotidine (Pepcid) 10 mg BID PO Last administered on 05/28/17 08:50; Start at 21:00; Stop 06/24/17 at 20:59 Gemfibrozil (Lopid) 600 mg BID PO Last administered on 05/28/17 08:50; Start 05/25/17 at 21:00; Stop 06/24/17 at 20:59 Glimepiride (Amaryl) 4 mg DAILY@0730 PO Last administered on 05/28/17 08:51; Start 05/26/17 at 07:30; Stop 06/25/17 at 07:29 Glucagon (Glucagon) 1 mg ASDIRECTED PRN SC SEE LABEL COMMENTS; Start 05/25/17 at 11:45; Stop 06/24/17 at 11:44 Glucose (Glucose) 16 GM ASDIRECTED PRN PO SEE LABEL COMMENTS; Start 05/25/17 at 11:45; Stop 06/24/17 at 11:44 Home Med (Med Rec Complete!) ASDIRECTED XX ; Start 05/25/17 at 13:45; Stop at 13:51; Status DC Hydroxychloroquine Sulfate (Plaquenil) 200 mg BID PO Last administered on 08:51; Start 05/25/17 at 21:00; Stop 06/24/17 at 20:59 Insulin Human Lispro (HumaLOG INSULIN) See Protocol Table AC SC Last administered on 05/28/17 07:30; Start 05/25/17 at 17:30; Stop 06/24/17 at 17:29 Lactobacillus Acidophilus (Bacid) 1 ea BIDWM PO Last administered on 05/28/17 08:50; Start 05/25/17 at 18:00; Stop 06/24/17 at 17:59 Lisinopril (Prinivil) 2.5 mg DAILY PO Last administered on 05/28/17 08:51; Start 05/26/17 at 09:00; Stop 06/25/17 at 08:59 Metformin HCl (Glucophage) 1,000 mg BID@18 PO Last administered on 08:51; Start 05/25/17 at 18:00; Stop 06/24/17 at 17:59 Miscellaneous (Unresolved Patient Own Med Order) SEE LABEL COMMENTS UNRESOLVED XX ; Start 05/25/17 at 00:01; Stop 05/25/17 at 22:53; Status DC Oxycodone HCl (Roxicodone, Oxyir) 5 mg Q4HP PRN PO PAIN(8-10) Last administered on 05/26/17 20:28; Start 05/25/17 at 11:45; Stop 06/01/17 at 11:44 Patient Own Medication (Patient'S Own Med) TRESIBA FLEX PRIYA... DAILY SC Last administered on 05/28/17 08:49; Start 05/26/17 at 09:00; Stop 06/25/17 at 08:59 Pravastatin Sodium (Pravachol) 20 mg DAILY PO Last administered on 05/28/17 08 :51; Start 05/26/17 at 09:00; Stop 06/25/17 at 08:59 REBEKA HEDRICK MD May 28, 2017 15:56
[2017-05-28 20:00] VITALS: BP 116/56
[2017-05-29 06:00] VITALS: BP 107/55
[2017-05-29] MEDS: HumaLOG INSULIN (NovoLOG) PER UNIT SC SCH ×3 (07:30→16:30)
[2017-05-29] MEDS: TRESIBA FLEX TOUCH SC SCH (08:37)
[2017-05-29] MEDS: LISINOPRIL *2.5 MG* TAB PO SCH (08:38)
[2017-05-29] MEDS: ACETAMINOPHEN TAB 650MG DOSE (2X325MG) PO PRN ×2 (08:38→20:56)
[2017-05-29] MEDS: buPROPion **XL** TABLET 150MG (WELLBUTRIN XL) PO SCH (08:38)
[2017-05-29] MEDS: DOCUSATE SODIUM 100 MG CAP PO SCH ×2 (08:38→20:56)
[2017-05-29] MEDS: metFORMIN (GLUCOPHAGE) 1000 MG TABLET PO SCH ×2 (08:38→17:17)
[2017-05-29] MEDS: ATENOLOL 50 MG TAB PO SCH (08:39)
[2017-05-29] MEDS: FAMOTIDINE 20 MG TAB PO SCH ×2 (08:39→20:56)
[2017-05-29] MEDS: GEMFIBROZIL 600 MG TAB PO SCH ×2 (08:39→20:56)
[2017-05-29] MEDS: LACTOBACILLUS ACIDOPHILUS CAP (BACID) PO SCH ×2 (08:39→17:17)
[2017-05-29] MEDS: CYCLOBENZAPRINE 10 MG TAB PO SCH ×3 (08:39→20:56)
[2017-05-29] MEDS: DULoxetine 30 MG CAP (CYMBALTA) PO SCH (08:39)
[2017-05-29] MEDS: HYDROXYCHLOROQUINE 200 MG TAB PO SCH ×2 (08:39→20:56)
[2017-05-29] MEDS: PRAVASTATIN 20 MG TAB PO SCH (08:40)
[2017-05-29] MEDS: GLIMEPIRIDE 2 MG TAB PO SCH (08:40)
[2017-05-29 14:00] VITALS: BP 109/56
--- NOTE | 2017-05-29 14:20 | IPNPDOC ---
[facility] Progress Note DATE OF SERVICE: 05/29/17 DATE OF ADMISSION: May 25, 2017 at 11:50 INPATIENT REHABILITATION ADMISSION DAY: #5 SUBJECTIVE: 52-year-old right-handed white female with polyneuropathy (CIDP versus diabetic amyotrophy, C5-6 compression status post C4-7 laminectomy and fusion). Patient with progressive proximal weakness also new numbness beyond stocking glove pattern now affecting upper aspects of the extremities as well as trunk. Patient for trial of neuro rehabilitation to try and regain adaptive mobility ADLs with wheelchair versus walker. Patient needs to use her cervical collar when not supported in bed. Patient needs to NOT be exercised to fatigue due to nature of CIDP (EXERCISE SHORT OF FATIGUE). Patient continues to deny any bladder symptoms. ALLERGIES: See Below MEDICATIONS: Reviewed, see below. OBJECTIVE: VITAL SIGNS: Please see below. PHYSICAL EXAMINATION: GENERAL: Obese middle-aged white female in very mild muscle skeletal distress with some diffuse weakness and proximal motor decline. HEENT: Normocephalic/atraumatic. CARDIOVASCULAR: Regular rate and rhythm with normal S1-S2 without S3-S4 murmurs or rubs. 2/4 bilateral radial pulses. LUNGS: All holley clear to auscultation. ABDOMEN: Obese, benign with normal bowel sounds in all quadrants. NEUROLOGICAL: Patient is alert and oriented 4. Speech is clear coherent and appropriate. Affect is in general pleasant cooperative but patient does have some anxiousness and flattening noted. Memory is intact. Patient with fair plus strength around the shoulders, hips and knees versus good minus to good strength in the more distal upper and lower extremities. Patient with stocking glove decrease light touch and vibration right greater than left but also some thigh and trunk decrease in sensation. SKIN: Grossly intact, but some redness and mild warmth at base of cervical incision without tenderness or and drainage. LABORATORY DATA: Reviewed. Please see below. MICROBIOLOGY: Please see below. IMAGING: No new imaging. DVT prophylaxis ordered?: PAGE hose and sequential stockings. ASSESSMENT AND PLAN: 1. 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 She has been working very hard with physical and occupational therapy able to do 5 up-and-down on a stair and ambulate 150 feet. Most of her transfers are contact guard assist. She is doing well usually in the contact guard level in occupational therapies ADLs. However endurance is limited and patient needs more work on technique. Patient is still learning how to safely work around the proximal weakness and this led to her starting to fall doing stairs this afternoon however she was not injured as physical therapists and the student therapists were able to report her and lower her down to us seated position. Patient is very motivated and overall doing well but does need some more training and at this time we anticipate discharge approximately 06/01/17. We will start showering of patient. 2. Possible urinary tract infection: UA reviewed and suggestive of a UTI. Patient denying any fever or chills or dysuria however her white blood cell count is 17.2 thousand. An urine culture and sensitivity today and I will start Cipro 250mg po bid. 3. Diabetes mellitus type 2 with polyneuropathy: Overall blood sugar control has been good since arriving here. No changes at this time. 4. Obstructive sleep apnea: Patient using her CPAP and at this time sleeping well. TIME SPENT: Chart Review, examination and documentation require greater than 25 minutes. Allergies Coded Allergies: Cephalexin (Verified Allergy, Unknown, 05/03/17) Vital Signs Vital Signs Date Time Temp Pulse Resp B/P (MAP) Pulse Ox O2 Delivery O2 Flow Rate FiO2 05/29/17 09:00 Room Air 05/29/17 08:39 81 107/55 05/29/17 06:00 97.6 18 99 Laboratory Data Labs 24H Laboratory Tests 2 05/28/17 16:37: Bedside Glucose (Misc Panel) 103 05/28/17 20:29: Bedside Glucose (Misc Panel) 181H 05/29/17 06:18: Bedside Glucose (Misc Panel) 94 05/29/17 12:06: Bedside Glucose (Misc Panel) 117H Microbiology Microbiology 05/29/17 Urine Culture, Received Pending Current Medications Current Medications Current Medications Acetaminophen (Tylenol Tab) 650 mg Q4HP PRN PO MILD PAIN (PS 1-4) Last administered on 05/29/17 08:38; Start 05/25/17 at 11:45; Stop 06/24/17 at 11:44 Atenolol (Tenormin) 50 mg DAILY PO Last administered on 05/29/17 08:39; Start 05/26/17 at 09:00; Stop 06/25/17 at 08:59 Bupropion HCl (Wellbutrin Xl) 300 mg DAILY PO Last administered on 05/29/17 08 :38; Start 05/26/17 at 09:00; Stop 06/25/17 at 08:59 Cyclobenzaprine HCl (Flexeril) 10 mg TID PO Last administered on 05/29/17 08: 39; Start 05/25/17 at 16:00; Stop 06/24/17 at 15:59 Dexamethasone (Decadron) 2 mg BID@0600,1800 PO ; Start 05/30/17 at 06:00; Stop 06/03/17 at 23:59 Dexamethasone (Decadron) 2 mg DAILY@0600 PO ; Start 06/04/17 at 06:00; Stop at 08:00 Dexamethasone (Decadron) 4 mg Q12H PO Last administered on 05/29/17 06:12; Start 05/25/17 at 18:00; Stop 05/29/17 at 17:59 Dextrose (Dextrose 50%) 25 ml ASDIRECTED PRN IV SEE LABEL COMMENTS; Start at 11:45; Stop 06/24/17 at 11:44 Docusate Sodium (Colace) 100 mg BID PO ; Start 05/25/17 at 09:00; Stop 05/25/17 at 13:58; Status DC Docusate Sodium (Colace) 100 mg BID PO Last administered on 05/29/17 08:38; Start 05/25/17 at 21:00; Stop 06/24/17 at 20:59 Duloxetine HCl (Cymbalta) 30 mg DAILY PO Last administered on 05/29/17 08:39; Start 05/26/17 at 09:00; Stop 06/25/17 at 08:59 Famotidine (Pepcid) 10 mg BID PO Last administered on 05/29/17 08:39; Start at 21:00; Stop 06/24/17 at 20:59 Gemfibrozil (Lopid) 600 mg BID PO Last administered on 05/29/17 08:39; Start 05/25/17 at 21:00; Stop 06/24/17 at 20:59 Glimepiride (Amaryl) 4 mg DAILY@0730 PO Last administered on 05/29/17 08:40; Start 05/26/17 at 07:30; Stop 06/25/17 at 07:29 Glucagon (Glucagon) 1 mg ASDIRECTED PRN SC SEE LABEL COMMENTS; Start 05/25/17 at 11:45; Stop 06/24/17 at 11:44 Glucose (Glucose) 16 GM ASDIRECTED PRN PO SEE LABEL COMMENTS; Start 05/25/17 at 11:45; Stop 06/24/17 at 11:44 Home Med (Med Rec Complete!) ASDIRECTED XX ; Start 05/25/17 at 13:45; Stop at 13:51; Status DC Hydroxychloroquine Sulfate (Plaquenil) 200 mg BID PO Last administered on 08:39; Start 05/25/17 at 21:00; Stop 06/24/17 at 20:59 Insulin Human Lispro (HumaLOG INSULIN) See Protocol Table AC SC Last administered on 05/29/17 12:00; Start 05/25/17 at 17:30; Stop 06/24/17 at 17:29 Lactobacillus Acidophilus (Bacid) 1 ea BIDWM PO Last administered on 05/29/17 08:39; Start 05/25/17 at 18:00; Stop 06/24/17 at 17:59 Lisinopril (Prinivil) 2.5 mg DAILY PO Last administered on 05/29/17 08:38; Start 05/26/17 at 09:00; Stop 06/25/17 at 08:59 Metformin HCl (Glucophage) 1,000 mg BID@18 PO Last administered on 08:38; Start 05/25/17 at 18:00; Stop 06/24/17 at 17:59 Miscellaneous (Unresolved Patient Own Med Order) SEE LABEL COMMENTS UNRESOLVED XX ; Start 05/25/17 at 00:01; Stop 05/25/17 at 22:53; Status DC Oxycodone HCl (Roxicodone, Oxyir) 5 mg Q4HP PRN PO PAIN(8-10) Last administered on 05/26/17 20:28; Start 05/25/17 at 11:45; Stop 06/01/17 at 11:44 Patient Own Medication (Patient'S Own Med) TRESIBA FLEX PRIYA... DAILY SC Last administered on 05/29/17 08:37; Start 05/26/17 at 09:00; Stop 06/25/17 at 08:59 Pravastatin Sodium (Pravachol) 20 mg DAILY PO Last administered on 05/29/17 08 :40; Start 05/26/17 at 09:00; Stop 06/25/17 at 08:59 REBEKA HEDRICK MD May 29, 2017 14:20
[2017-05-29] MEDS: CIPROFLOXACIN 250 MG TAB PO SCH (17:17)
[2017-05-29 20:00] VITALS: BP 104/57
[2017-05-30 06:00] VITALS: BP 110/50
[2017-05-30] MEDS: CIPROFLOXACIN 250 MG TAB PO SCH ×2 (06:02→17:48)
[2017-05-30] MEDS: HumaLOG INSULIN (NovoLOG) PER UNIT SC SCH ×3 (07:26→17:10)
[2017-05-30] MEDS: TRESIBA FLEX TOUCH SC SCH (09:16)
[2017-05-30] MEDS: GLIMEPIRIDE 2 MG TAB PO SCH (09:17)
[2017-05-30] MEDS: metFORMIN (GLUCOPHAGE) 1000 MG TABLET PO SCH ×2 (09:18→17:47)
[2017-05-30] MEDS: FAMOTIDINE 20 MG TAB PO SCH ×2 (09:20→20:53)
[2017-05-30] MEDS: LACTOBACILLUS ACIDOPHILUS CAP (BACID) PO SCH ×2 (09:22→17:48)
[2017-05-30] MEDS: GEMFIBROZIL 600 MG TAB PO SCH ×2 (09:22→20:52)
[2017-05-30] MEDS: buPROPion **XL** TABLET 150MG (WELLBUTRIN XL) PO SCH (09:23)
[2017-05-30] MEDS: LISINOPRIL *2.5 MG* TAB PO SCH (09:23)
[2017-05-30] MEDS: CYCLOBENZAPRINE 10 MG TAB PO SCH ×3 (09:23→20:53)
[2017-05-30] MEDS: DOCUSATE SODIUM 100 MG CAP PO SCH ×2 (09:23→20:52)
[2017-05-30] MEDS: DULoxetine 30 MG CAP (CYMBALTA) PO SCH (09:23)
[2017-05-30] MEDS: PRAVASTATIN 20 MG TAB PO SCH (09:23)
[2017-05-30] MEDS: HYDROXYCHLOROQUINE 200 MG TAB PO SCH ×2 (09:23→20:52)
[2017-05-30] MEDS: ATENOLOL 50 MG TAB PO SCH (09:24)
--- NOTE | 2017-05-30 13:05 | IPNPDOC ---
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 Patient with progressive proximal weakness also new numbness beyond stocking glove pattern now affecting upper aspects of the extremities as well as trunk. Patient for trial of neuro rehabilitation to try and regain adaptive mobility ADLs with wheelchair versus walker. Patient needs to use her cervical collar when not supported in bed. Patient needs to NOT be exercised to fatigue due to nature of CIDP (EXERCISE SHORT OF FATIGUE). Patient continues to deny any bladder symptoms. Nursing notes some impulsive movements. ALLERGIES: See Below MEDICATIONS: Reviewed, see below. OBJECTIVE: VITAL SIGNS: Please see below. PHYSICAL EXAMINATION: GENERAL: Obese middle-aged white female in very mild muscle skeletal distress with some diffuse weakness and proximal motor decline. HEENT: Normocephalic/atraumatic. CARDIOVASCULAR: Regular rate and rhythm with normal S1-S2 without S3-S4 murmurs or rubs. 2/4 bilateral radial pulses. LUNGS: All holley clear to auscultation. ABDOMEN: Obese, benign with normal bowel sounds in all quadrants. NEUROLOGICAL: Patient is alert and oriented 4. Speech is clear coherent and appropriate. Affect is in general pleasant cooperative but patient does have some anxiousness and flattening noted. Memory is intact. Patient with fair plus strength around the shoulders, hips and knees versus good minus to good strength in the more distal upper and lower extremities. Patient with stocking glove decrease light touch and vibration right greater than left but also some thigh and trunk decrease in sensation. SKIN: Grossly intact, but some redness and mild warmth at base of cervical incision without tenderness or and drainage. LABORATORY DATA: Reviewed. Please see below. MICROBIOLOGY: Please see below. IMAGING: No new imaging. DVT prophylaxis ordered?: PAGE hose and sequential stockings. ASSESSMENT AND PLAN: 1. 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 She has been working very hard with physical and occupational therapy able to do 5 up-and-down on a stair and ambulate 150 feet. Most of her transfers are contact guard assist. She is doing well usually in the contact guard level in occupational therapies ADLs. However endurance is limited and patient needs more work on technique. Patient is still learning how to safely work around the proximal weakness and this led to her starting to fall doing stairs this afternoon however she was not injured as physical therapists and the student therapists were able to report her and lower her down to us seated position. Patient is very motivated and overall doing well but does need some more training and at this time we anticipate discharge approximately 06/01/17. We will start showering of patient. 2. Possible urinary tract infection: UA reviewed and suggestive of a UTI. Patient denying any fever or chills or dysuria however her white blood cell count is 17.2 thousand. An urine culture and sensitivity pending from yesterday and I have start Cipro 250mg po bid. I will recheck CBC tomorrow. 3. Diabetes mellitus type 2 with polyneuropathy: Overall blood sugar control has been good since arriving here except in 60's at breakfast time cleared by eating breakfast. No changes at this time as patient to resume home regimen and diet on discharge in 2 days. 4. Obstructive sleep apnea: Patient using her CPAP and at this time sleeping well. TIME SPENT: Chart Review, examination and documentation require greater than 25 minutes. Allergies Coded Allergies: Cephalexin (Verified Allergy, Unknown, 05/03/17) Vital Signs Vital Signs Date Time Temp Pulse Resp B/P (MAP) Pulse Ox O2 Delivery O2 Flow Rate FiO2 05/30/17 09:24 80 110/50 05/30/17 09:00 Room Air 05/30/17 06:00 98.3 18 100 Laboratory Data Labs 24H Laboratory Tests 2 05/29/17 16:29: Bedside Glucose (Misc Panel) 98 05/29/17 20:33: Bedside Glucose (Misc Panel) 101 05/30/17 06:49: Bedside Glucose (Misc Panel) 56L 05/30/17 07:17: Bedside Glucose (Misc Panel) 145H 05/30/17 12:16: Bedside Glucose (Misc Panel) 180H Microbiology Microbiology 05/29/17 Urine Culture, Received Pending Current Medications Current Medications Current Medications Acetaminophen (Tylenol Tab) 650 mg Q4HP PRN PO MILD PAIN (PS 1-4) Last administered on 05/29/17t 20:56; Start 05/25/17 at 11:45; Stop 06/24/17 at 11:44 Atenolol (Tenormin) 50 mg DAILY PO Last administered on 05/30/17 09:24; Start 05/26/17 at 09:00; Stop 06/25/17 at 08:59 Bupropion HCl (Wellbutrin Xl) 300 mg DAILY PO Last administered on 05/30/17 09 :23; Start 05/26/17 at 09:00; Stop 06/25/17 at 08:59 Ciprofloxacin (Cipro) 250 mg BID@06,18 PO Last administered on 05/30/17 06:02 ; Start 05/29/17 at 18:00; Stop 06/05/17 at 17:59 Cyclobenzaprine HCl (Flexeril) 10 mg TID PO Last administered on 05/30/17 09: 23; Start 05/25/17 at 16:00; Stop 06/24/17 at 15:59 Dexamethasone (Decadron) 2 mg BID@0600,1800 PO Last administered on 05/30/17 06:02; Start 05/30/17 at 06:00; Stop 06/03/17 at 23:59 Dexamethasone (Decadron) 2 mg DAILY@0600 PO ; Start 06/04/17 at 06:00; Stop at 08:00 Dexamethasone (Decadron) 4 mg Q12H PO Last administered on 05/29/17 06:12; Start 05/25/17 at 18:00; Stop 05/29/17 at 17:59; Status DC Dextrose (Dextrose 50%) 25 ml ASDIRECTED PRN IV SEE LABEL COMMENTS; Start at 11:45; Stop 06/24/17 at 11:44 Docusate Sodium (Colace) 100 mg BID PO ; Start 05/25/17 at 09:00; Stop 05/25/17 at 13:58; Status DC Docusate Sodium (Colace) 100 mg BID PO Last administered on 05/30/17 09:23; Start 05/25/17 at 21:00; Stop 06/24/17 at 20:59 Duloxetine HCl (Cymbalta) 30 mg DAILY PO Last administered on 05/30/17 09:23; Start 05/26/17 at 09:00; Stop 06/25/17 at 08:59 Famotidine (Pepcid) 10 mg BID PO Last administered on 05/30/17 09:20; Start at 21:00; Stop 06/24/17 at 20:59 Gemfibrozil (Lopid) 600 mg BID PO Last administered on 05/30/17 09:22; Start 05/25/17 at 21:00; Stop 06/24/17 at 20:59 Glimepiride (Amaryl) 4 mg DAILY@0730 PO Last administered on 05/30/17 09:17; Start 05/26/17 at 07:30; Stop 06/25/17 at 07:29 Glucagon (Glucagon) 1 mg ASDIRECTED PRN SC SEE LABEL COMMENTS; Start 05/25/17 at 11:45; Stop 06/24/17 at 11:44 Glucose (Glucose) 16 GM ASDIRECTED PRN PO SEE LABEL COMMENTS; Start 05/25/17 at 11:45; Stop 06/24/17 at 11:44 Home Med (Med Rec Complete!) ASDIRECTED XX ; Start 05/25/17 at 13:45; Stop at 13:51; Status DC Hydroxychloroquine Sulfate (Plaquenil) 200 mg BID PO Last administered on 09:23; Start 05/25/17 at 21:00; Stop 06/24/17 at 20:59 Insulin Human Lispro (HumaLOG INSULIN) See Protocol Table AC SC Last administered on 05/30/17 12:45; Start 05/25/17 at 17:30; Stop 06/24/17 at 17:29 Lactobacillus Acidophilus (Bacid) 1 ea BIDWM PO Last administered on 05/30/17 09:22; Start 05/25/17 at 18:00; Stop 06/24/17 at 17:59 Lisinopril (Prinivil) 2.5 mg DAILY PO Last administered on 05/30/17 09:23; Start 05/26/17 at 09:00; Stop 06/25/17 at 08:59 Metformin HCl (Glucophage) 1,000 mg BID@08,18 PO Last administered on 09:18; Start 05/25/17 at 18:00; Stop 06/24/17 at 17:59 Miscellaneous (Unresolved Patient Own Med Order) SEE LABEL COMMENTS UNRESOLVED XX ; Start 05/25/17 at 00:01; Stop 05/25/17 at 22:53; Status DC Oxycodone HCl (Roxicodone, Oxyir) 5 mg Q4HP PRN PO PAIN(8-10) Last administered on 05/26/17 20:28; Start 05/25/17 at 11:45; Stop 05/30/17 at 08:14; Status DC Patient Own Medication (Patient'S Own Med) TRESIBA FLEX PRIYA... DAILY SC Last administered on 05/30/17 09:16; Start 05/26/17 at 09:00; Stop 06/25/17 at 08:59 Pravastatin Sodium (Pravachol) 20 mg DAILY PO Last administered on 05/30/17 09 :23; Start 05/26/17 at 09:00; Stop 06/25/17 at 08:59 REBEKA HEDRICK MD May 30, 2017 13:05
[2017-05-30 14:00] VITALS: BP 102/56
[2017-05-30 20:15] VITALS: BP 108/57
[2017-05-31] MEDS: CIPROFLOXACIN 250 MG TAB PO SCH ×2 (05:30→17:58)
[2017-05-31 05:44] VITALS: BP 109/57
[2017-05-31 06:51] LABS: MEAN CORPUSCULAR HEMOGLOBIN 29.4 pg (27.0-33.0); MEAN CORPUSCULAR HGB CONC 34.1 g/dl (32.0-36.5); RED CELL DISTRIBUTION WIDTH 13.8 % (11.5-14.5)
[2017-05-31] MEDS: ACETAMINOPHEN TAB 650MG DOSE (2X325MG) PO PRN ×2 (08:44→18:02)
[2017-05-31] MEDS: ATENOLOL 50 MG TAB PO SCH (08:45)
[2017-05-31] MEDS: LACTOBACILLUS ACIDOPHILUS CAP (BACID) PO SCH ×2 (08:45→17:58)
[2017-05-31] MEDS: PRAVASTATIN 20 MG TAB PO SCH (08:45)
[2017-05-31] MEDS: CYCLOBENZAPRINE 10 MG TAB PO SCH ×3 (08:45→21:14)
[2017-05-31] MEDS: metFORMIN (GLUCOPHAGE) 1000 MG TABLET PO SCH ×2 (08:45→17:58)
[2017-05-31] MEDS: GLIMEPIRIDE 2 MG TAB PO SCH (08:45)
[2017-05-31] MEDS: DOCUSATE SODIUM 100 MG CAP PO SCH ×2 (08:45→21:14)
[2017-05-31] MEDS: FAMOTIDINE 20 MG TAB PO SCH ×2 (08:45→21:14)
[2017-05-31] MEDS: HYDROXYCHLOROQUINE 200 MG TAB PO SCH ×2 (08:45→21:14)
[2017-05-31] MEDS: buPROPion **XL** TABLET 150MG (WELLBUTRIN XL) PO SCH (08:45)
[2017-05-31] MEDS: GEMFIBROZIL 600 MG TAB PO SCH ×2 (08:45→21:14)
[2017-05-31] MEDS: HumaLOG INSULIN (NovoLOG) PER UNIT SC SCH ×3 (08:46→17:58)
[2017-05-31] MEDS: DULoxetine 30 MG CAP (CYMBALTA) PO SCH (08:47)
[2017-05-31] MEDS: LISINOPRIL *2.5 MG* TAB PO SCH (08:47)
[2017-05-31] MEDS: TRESIBA FLEX TOUCH SC SCH (08:47)
--- NOTE | 2017-05-31 12:55 | IPNPDOC ---
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 Patient with progressive proximal weakness also new numbness beyond stocking glove pattern now affecting upper aspects of the extremities as well as trunk. Patient for trial of neuro rehabilitation to try and regain adaptive mobility ADLs with wheelchair versus walker. Patient needs to use her cervical collar when not supported in bed. Patient needs to NOT be exercised to fatigue due to nature of CIDP (EXERCISE SHORT OF FATIGUE). Patient continues to deny any bladder symptoms. Nursing notes some impulsive movements. ALLERGIES: See Below MEDICATIONS: Reviewed, see below. OBJECTIVE: VITAL SIGNS: Please see below. PHYSICAL EXAMINATION: GENERAL: Obese middle-aged white female in very mild muscle skeletal distress with some diffuse weakness and proximal motor decline. HEENT: Normocephalic/atraumatic. CARDIOVASCULAR: Regular rate and rhythm with normal S1-S2 without S3-S4 murmurs or rubs. 2/4 bilateral radial pulses. LUNGS: All holley clear to auscultation. ABDOMEN: Obese, benign with normal bowel sounds in all quadrants. NEUROLOGICAL: Patient is alert and oriented 4. Speech is clear coherent and appropriate. Affect is in general pleasant cooperative but patient does have some anxiousness and flattening noted. Memory is intact. Patient with fair plus strength around the shoulders, hips and knees versus good minus to good strength in the more distal upper and lower extremities. Patient with stocking glove decrease light touch and vibration right greater than left but also some thigh and trunk decrease in sensation. SKIN: Grossly intact, but much less redness and no increase warmth at base of cervical incision without tenderness or and drainage. LABORATORY DATA: Reviewed. Please see below. MICROBIOLOGY: Please see below. IMAGING: No new imaging. DVT prophylaxis ordered?: PAGE hose and sequential stockings. ASSESSMENT AND PLAN: 1. 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 She has been working very hard with physical and occupational therapy able to do > 5 up-and-down on a stair and ambulate >= 150 feet. Most of her transfers are contact guard assist. She is doing well usually in the contact guard level in occupational therapies ADLs. However endurance is limited and patient needs more work on technique. Patient is still learning how to safely work around the proximal weakness and this led to her starting to fall doing stairs this afternoon however she was not injured as physical therapists and the student therapists were able to report her and lower her down to us seated position. Patient is very motivated and overall doing well but does need some more training and at this time we anticipate discharge approximately 06/01/17. We will start showering of patient. REHAB. TEAM ROUNDS: Patient's consistency with safe technique and not getting into a barros is a concern at this time. Team plan for discharge on 06/04 after more iterations of safety training. 2. Possible urinary tract infection: UA reviewed and suggestive of a UTI. Patient denying any fever or chills or dysuria however her white blood cell count is 17.2 thousand. An urine culture and sensitivity show E. Coli sensitive to Cipro. I had started Cipro 250mg po bid and will continue it. WBC now 10.0K vs. the 17.2 earlier. 3. Diabetes mellitus type 2 with polyneuropathy: Overall blood sugar control has been good since arriving here except in 60's at breakfast time cleared by eating breakfast. I advanced her back to Regular Diet which better approximates home. Since then no below 100 Blood Sugars. No changes at this time as patient to resume home regimen on discharge in 1 days. 4. Obstructive sleep apnea: Patient using her CPAP and at this time sleeping well. TIME SPENT: Chart Review, examination and documentation require greater than 25 minutes. Allergies Coded Allergies: Cephalexin (Verified Allergy, Unknown, 05/03/17) Vital Signs Vital Signs Date Time Temp Pulse Resp B/P (MAP) Pulse Ox O2 Delivery O2 Flow Rate FiO2 05/31/17 08:47 109/57 05/31/17 08:45 87 05/31/17 05:44 97.6 18 99 Room Air Laboratory Data CBC/BMP Laboratory Tests 05/31/17 06:31 Red Blood Count 3.63 L, Mean Corpuscular Volume 86.0, Mean Corpuscular Hemoglobin 29.4, Mean Corpuscular Hemoglobin Concent 34.1, Red Cell Distribution Width 13.8 Labs 24H Laboratory Tests 2 05/30/17 17:07: Bedside Glucose (Misc Panel) 73 05/30/17 20:50: Bedside Glucose (Misc Panel) 236H 05/31/17 06:37: Bedside Glucose (Misc Panel) 111H 05/31/17 12:03: Bedside Glucose (Misc Panel) 143H Microbiology Microbiology 05/29/17 Urine Culture - Final, Complete Escherichia Coli Current Medications Current Medications Current Medications Acetaminophen (Tylenol Tab) 650 mg Q4HP PRN PO MILD PAIN (PS 1-4) Last administered on 05/31/17 08:44; Start 05/25/17 at 11:45; Stop 06/24/17 at 11:44 Atenolol (Tenormin) 50 mg DAILY PO Last administered on 05/31/17 08:45; Start 05/26/17 at 09:00; Stop 06/25/17 at 08:59 Bupropion HCl (Wellbutrin Xl) 300 mg DAILY PO Last administered on 05/31/17 08 :45; Start 05/26/17 at 09:00; Stop 06/25/17 at 08:59 Ciprofloxacin (Cipro) 250 mg BID@06,18 PO Last administered on 05/31/17 05:30 ; Start 05/29/17 at 18:00; Stop 06/05/17 at 17:59 Cyclobenzaprine HCl (Flexeril) 10 mg TID PO Last administered on 05/31/17 08: 45; Start 05/25/17 at 16:00; Stop 06/24/17 at 15:59 Dexamethasone (Decadron) 2 mg BID@0600,1800 PO Last administered on 05/31/17 05:30; Start 05/30/17 at 06:00; Stop 06/03/17 at 23:59 Dexamethasone (Decadron) 2 mg DAILY@0600 PO ; Start 06/04/17 at 06:00; Stop at 08:00 Dexamethasone (Decadron) 4 mg Q12H PO Last administered on 05/29/17 06:12; Start 05/25/17 at 18:00; Stop 05/29/17 at 17:59; Status DC Dextrose (Dextrose 50%) 25 ml ASDIRECTED PRN IV SEE LABEL COMMENTS; Start at 11:45; Stop 06/24/17 at 11:44 Docusate Sodium (Colace) 100 mg BID PO ; Start 05/25/17 at 09:00; Stop 05/25/17 at 13:58; Status DC Docusate Sodium (Colace) 100 mg BID PO Last administered on 05/31/17 08:45; Start 05/25/17 at 21:00; Stop 06/24/17 at 20:59 Duloxetine HCl (Cymbalta) 30 mg DAILY PO Last administered on 05/31/17 08:47; Start 05/26/17 at 09:00; Stop 06/25/17 at 08:59 Famotidine (Pepcid) 10 mg BID PO Last administered on 05/31/17 08:45; Start at 21:00; Stop 06/24/17 at 20:59 Gemfibrozil (Lopid) 600 mg BID PO Last administered on 05/31/17 08:45; Start 05/25/17 at 21:00; Stop 06/24/17 at 20:59 Glimepiride (Amaryl) 4 mg DAILY@0730 PO Last administered on 05/31/17 08:45; Start 05/26/17 at 07:30; Stop 06/25/17 at 07:29 Glucagon (Glucagon) 1 mg ASDIRECTED PRN SC SEE LABEL COMMENTS; Start 05/25/17 at 11:45; Stop 06/24/17 at 11:44 Glucose (Glucose) 16 GM ASDIRECTED PRN PO SEE LABEL COMMENTS; Start 05/25/17 at 11:45; Stop 06/24/17 at 11:44 Home Med (Med Rec Complete!) ASDIRECTED XX ; Start 05/25/17 at 13:45; Stop at 13:51; Status DC Hydroxychloroquine Sulfate (Plaquenil) 200 mg BID PO Last administered on 08:45; Start 05/25/17 at 21:00; Stop 06/24/17 at 20:59 Insulin Human Lispro (HumaLOG INSULIN) See Protocol Table AC SC Last administered on 05/31/17 12:41; Start 05/25/17 at 17:30; Stop 06/24/17 at 17:29 Lactobacillus Acidophilus (Bacid) 1 ea BIDWM PO Last administered on 05/31/17 08:45; Start 05/25/17 at 18:00; Stop 06/24/17 at 17:59 Lisinopril (Prinivil) 2.5 mg DAILY PO Last administered on 05/31/17 08:47; Start 05/26/17 at 09:00; Stop 06/25/17 at 08:59 Metformin HCl (Glucophage) 1,000 mg BID@ PO Last administered on 08:45; Start 05/25/17 at 18:00; Stop 06/24/17 at 17:59 Miscellaneous (Unresolved Patient Own Med Order) SEE LABEL COMMENTS UNRESOLVED XX ; Start 05/25/17 at 00:01; Stop 05/25/17 at 22:53; Status DC Oxycodone HCl (Roxicodone, Oxyir) 5 mg Q4HP PRN PO PAIN(8-10) Last administered on 05/26/17 20:28; Start 05/25/17 at 11:45; Stop 05/30/17 at 08:14; Status DC Patient Own Medication (Patient'S Own Med) TRESIBA FLEX PRIYA... DAILY SC Last administered on 05/31/17 08:47; Start 05/26/17 at 09:00; Stop 06/25/17 at 08:59 Pravastatin Sodium (Pravachol) 20 mg DAILY PO Last administered on 05/31/17 08 :45; Start 05/26/17 at 09:00; Stop 06/25/17 at 08:59 REBEKA HEDRICK MD May 31, 2017 12:55
[2017-05-31 15:00] VITALS: BP 106/57
[2017-05-31 20:00] VITALS: BP 108/53
[2017-06-01] MEDS: CIPROFLOXACIN 250 MG TAB PO SCH ×2 (05:29→17:04)
[2017-06-01 06:00] VITALS: BP 124/69
[2017-06-01] MEDS: TRESIBA FLEX TOUCH SC SCH (07:45)
[2017-06-01] MEDS: HumaLOG INSULIN (NovoLOG) PER UNIT SC SCH ×3 (07:46→17:04)
[2017-06-01] MEDS: CYCLOBENZAPRINE 10 MG TAB PO SCH ×3 (07:46→21:08)
[2017-06-01] MEDS: LISINOPRIL *2.5 MG* TAB PO SCH (07:47)
[2017-06-01] MEDS: PRAVASTATIN 20 MG TAB PO SCH (07:47)
[2017-06-01] MEDS: LACTOBACILLUS ACIDOPHILUS CAP (BACID) PO SCH ×2 (07:47→17:04)
[2017-06-01] MEDS: metFORMIN (GLUCOPHAGE) 1000 MG TABLET PO SCH ×2 (07:47→17:04)
[2017-06-01] MEDS: GEMFIBROZIL 600 MG TAB PO SCH ×2 (07:47→21:08)
[2017-06-01] MEDS: FAMOTIDINE 20 MG TAB PO SCH ×2 (07:47→21:07)
[2017-06-01] MEDS: buPROPion **XL** TABLET 150MG (WELLBUTRIN XL) PO SCH (07:47)
[2017-06-01] MEDS: GLIMEPIRIDE 2 MG TAB PO SCH (07:48)
[2017-06-01] MEDS: ATENOLOL 50 MG TAB PO SCH (07:48)
[2017-06-01] MEDS: DOCUSATE SODIUM 100 MG CAP PO SCH ×2 (07:48→21:08)
[2017-06-01] MEDS: HYDROXYCHLOROQUINE 200 MG TAB PO SCH ×2 (07:48→21:08)
[2017-06-01] MEDS: DULoxetine 30 MG CAP (CYMBALTA) PO SCH (07:48)
[2017-06-01] MEDS ORDERED: CYCL10TA PO (11:22)
[2017-06-01] MEDS ORDERED: CIPR500T3 PO (11:37)
--- NOTE | 2017-06-01 11:41 | IPNPDOC ---
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 Patient with progressive proximal weakness also new numbness beyond stocking glove pattern now affecting upper aspects of the extremities as well as trunk. Patient for trial of neuro rehabilitation to try and regain adaptive mobility ADLs with wheelchair versus walker. Patient needs to use her cervical collar when not supported in bed. Patient needs to NOT be exercised to fatigue due to nature of CIDP (EXERCISE SHORT OF FATIGUE). Patient continues to deny any bladder symptoms. Nursing notes some impulsive movements. Patient happy with discharge to home plans except would like it to come sooner if it had been appropriate. ALLERGIES: See Below MEDICATIONS: Reviewed, see below. OBJECTIVE: VITAL SIGNS: Please see below. PHYSICAL EXAMINATION: GENERAL: Obese middle-aged white female in very mild muscle skeletal distress with some diffuse weakness and proximal motor decline. HEENT: Normocephalic/atraumatic. CARDIOVASCULAR: Regular rate and rhythm with normal S1-S2 without S3-S4 murmurs or rubs. 2/4 bilateral radial pulses. LUNGS: All holley clear to auscultation. ABDOMEN: Obese, benign with normal bowel sounds in all quadrants. NEUROLOGICAL: Patient is alert and oriented 4. Speech is clear coherent and appropriate. Affect is in general pleasant cooperative but patient does have some anxiousness and flattening noted. Memory is intact. Patient with fair plus strength around the shoulders, hips and knees versus good minus to good strength in the more distal upper and lower extremities. Patient with stocking glove decrease light touch and vibration right greater than left but also some thigh and trunk decrease in sensation. SKIN: Grossly intact, but much now no redness and no increase warmth at base of cervical incision without tenderness or and drainage. Luz being removed today. LABORATORY DATA: Reviewed. Please see below. MICROBIOLOGY: Please see below. IMAGING: No new imaging. DVT prophylaxis ordered?: PAGE hose and sequential stockings. ASSESSMENT AND PLAN: 1. 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 She has been working very hard with physical and occupational therapy able to do > 5 up-and-down on a stair and ambulate >= 150 feet. Most of her transfers are contact guard assist. She is doing well usually in the contact guard level in occupational therapies ADLs. However endurance is limited and patient needs more work on technique. Patient is still learning how to safely work around the proximal weakness and this led to her starting to fall doing stairs this afternoon however she was not injured as physical therapists and the student therapists were able to report her and lower her down to us seated position. Patient is very motivated and overall doing well but does need some more training and at this time we anticipate discharge approximately 06/04/17. We will start showering of patient. 2. Possible urinary tract infection: UA reviewed and suggestive of a UTI. Patient denying any fever or chills or dysuria however her white blood cell count is 17.2 thousand. An urine culture and sensitivity show E. Coli sensitive to Cipro. I had started Cipro 250mg po bid and will continue it till 06/06/17. 3. Diabetes mellitus type 2 with polyneuropathy: Overall blood sugar control has been good since arriving here except in 60's at breakfast time cleared by eating breakfast. I advanced her back to Regular Diet which better approximates home. Since then no below 100 Blood Sugars. No changes at this time as patient to resume home regimen on discharge in 3 days. 4. Obstructive sleep apnea: Patient using her CPAP and at this time sleeping well. TIME SPENT: Chart Review, examination and documentation require greater than 25 minutes. Allergies Coded Allergies: Cephalexin (Verified Allergy, Unknown, 05/03/17) Vital Signs Vital Signs Date Time Temp Pulse Resp B/P (MAP) Pulse Ox O2 Delivery O2 Flow Rate FiO2 06/01/17 07:59 Room Air 06/01/17 07:48 83 124/69 06/01/17 06:00 97.4 18 98 Laboratory Data Labs 24H Laboratory Tests 2 05/31/17 12:03: Bedside Glucose (Misc Panel) 143H 05/31/17 16:26: Bedside Glucose (Misc Panel) 146H 05/31/17 20:05: Bedside Glucose (Misc Panel) 334H 05/31/17 22:02: Bedside Glucose (Misc Panel) 240H 06/01/17 06:47: Bedside Glucose (Misc Panel) 129H Microbiology Microbiology 05/29/17 Urine Culture - Final, Complete Escherichia Coli Current Medications Current Medications Current Medications Acetaminophen (Tylenol Tab) 650 mg Q4HP PRN PO MILD PAIN (PS 1-4) Last administered on 05/31/17 18:02; Start 05/25/17 at 11:45; Stop 06/24/17 at 11:44 Atenolol (Tenormin) 50 mg DAILY PO Last administered on 06/01/17 07:48; Start 05/26/17 at 09:00; Stop 06/25/17 at 08:59 Bupropion HCl (Wellbutrin Xl) 300 mg DAILY PO Last administered on 06/01/17 07 :47; Start 05/26/17 at 09:00; Stop 06/25/17 at 08:59 Ciprofloxacin (Cipro) 250 mg BID@06,18 PO Last administered on 06/01/17 05:29 ; Start 05/29/17 at 18:00; Stop 06/05/17 at 17:59 Cyclobenzaprine HCl (Flexeril) 10 mg TID PO Last administered on 06/01/17 07: 46; Start 05/25/17 at 16:00; Stop 06/24/17 at 15:59 Dexamethasone (Decadron) 2 mg BID@0600,1800 PO Last administered on 06/01/17 05:30; Start 05/30/17 at 06:00; Stop 06/03/17 at 23:59 Dexamethasone (Decadron) 2 mg DAILY@0600 PO ; Start 06/04/17 at 06:00; Stop at 08:00 Dexamethasone (Decadron) 4 mg Q12H PO Last administered on 05/29/17 06:12; Start 05/25/17 at 18:00; Stop 05/29/17 at 17:59; Status DC Dextrose (Dextrose 50%) 25 ml ASDIRECTED PRN IV SEE LABEL COMMENTS; Start at 11:45; Stop 06/24/17 at 11:44 Docusate Sodium (Colace) 100 mg BID PO ; Start 05/25/17 at 09:00; Stop 05/25/17 at 13:58; Status DC Docusate Sodium (Colace) 100 mg BID PO Last administered on 06/01/17 07:48; Start 05/25/17 at 21:00; Stop 06/24/17 at 20:59 Duloxetine HCl (Cymbalta) 30 mg DAILY PO Last administered on 06/01/17 07:48; Start 05/26/17 at 09:00; Stop 06/25/17 at 08:59 Famotidine (Pepcid) 10 mg BID PO Last administered on 06/01/17 07:47; Start at 21:00; Stop 06/24/17 at 20:59 Gemfibrozil (Lopid) 600 mg BID PO Last administered on 06/01/17 07:47; Start 05/25/17 at 21:00; Stop 06/24/17 at 20:59 Glimepiride (Amaryl) 4 mg DAILY@30 PO Last administered on 06/01/17 07:48; Start 05/26/17 at 07:30; Stop 06/25/17 at 07:29 Glucagon (Glucagon) 1 mg ASDIRECTED PRN SC SEE LABEL COMMENTS; Start 05/25/17 at 11:45; Stop 06/24/17 at 11:44 Glucose (Glucose) 16 GM ASDIRECTED PRN PO SEE LABEL COMMENTS; Start 05/25/17 at 11:45; Stop 06/24/17 at 11:44 Home Med (Med Rec Complete!) ASDIRECTED XX ; Start 05/25/17 at 13:45; Stop at 13:51; Status DC Hydroxychloroquine Sulfate (Plaquenil) 200 mg BID PO Last administered on 07:48; Start 05/25/17 at 21:00; Stop 06/24/17 at 20:59 Insulin Human Lispro (HumaLOG INSULIN) See Protocol Table AC SC Last administered on 06/01/17 07:46; Start 05/25/17 at 17:30; Stop 06/24/17 at 17:29 Lactobacillus Acidophilus (Bacid) 1 ea BIDWM PO Last administered on 06/01/17 07:47; Start 05/25/17 at 18:00; Stop 06/24/17 at 17:59 Lisinopril (Prinivil) 2.5 mg DAILY PO Last administered on 06/01/17 07:47; Start 05/26/17 at 09:00; Stop 06/25/17 at 08:59 Metformin HCl (Glucophage) 1,000 mg BID@,18 PO Last administered on 07:47; Start 05/25/17 at 18:00; Stop 06/24/17 at 17:59 Miscellaneous (Unresolved Patient Own Med Order) SEE LABEL COMMENTS UNRESOLVED XX ; Start 05/25/17 at 00:01; Stop 05/25/17 at 22:53; Status DC Oxycodone HCl (Roxicodone, Oxyir) 5 mg Q4HP PRN PO PAIN(8-10) Last administered on 05/26/17 20:28; Start 05/25/17 at 11:45; Stop 05/30/17 at 08:14; Status DC Patient Own Medication (Patient'S Own Med) TRESIBA FLEX PRIYA... DAILY SC Last administered on 06/01/17 07:45; Start 05/26/17 at 09:00; Stop 06/25/17 at 08:59 Pravastatin Sodium (Pravachol) 20 mg DAILY PO Last administered on 06/01/17 07 :47; Start 05/26/17 at 09:00; Stop 06/25/17 at 08:59 REBEKA HEDRICK MD Jun 01, 2017 11:41
[2017-06-01 14:00] VITALS: BP 103/55
[2017-06-01 21:00] VITALS: BP 112/53
[2017-06-02] MEDS: CIPROFLOXACIN 250 MG TAB PO SCH ×2 (05:37→17:35)
[2017-06-02 06:00] VITALS: BP 120/60
[2017-06-02] MEDS: GLIMEPIRIDE 2 MG TAB PO SCH (07:58)
[2017-06-02] MEDS: LACTOBACILLUS ACIDOPHILUS CAP (BACID) PO SCH ×2 (07:58→17:34)
[2017-06-02] MEDS: metFORMIN (GLUCOPHAGE) 1000 MG TABLET PO SCH ×2 (07:58→17:35)
[2017-06-02] MEDS: HumaLOG INSULIN (NovoLOG) PER UNIT SC SCH ×3 (07:59→17:34)
[2017-06-02] MEDS: HYDROXYCHLOROQUINE 200 MG TAB PO SCH ×2 (08:02→20:47)
[2017-06-02] MEDS: LISINOPRIL *2.5 MG* TAB PO SCH (08:02)
[2017-06-02] MEDS: DOCUSATE SODIUM 100 MG CAP PO SCH ×2 (08:02→20:47)
[2017-06-02] MEDS: GEMFIBROZIL 600 MG TAB PO SCH ×2 (08:02→20:47)
[2017-06-02] MEDS: CYCLOBENZAPRINE 10 MG TAB PO SCH ×3 (08:02→20:47)
[2017-06-02] MEDS: PRAVASTATIN 20 MG TAB PO SCH (08:02)
[2017-06-02] MEDS: buPROPion **XL** TABLET 150MG (WELLBUTRIN XL) PO SCH (08:02)
[2017-06-02] MEDS: ATENOLOL 50 MG TAB PO SCH (08:03)
[2017-06-02] MEDS: FAMOTIDINE 20 MG TAB PO SCH ×2 (08:03→20:47)
[2017-06-02] MEDS: TRESIBA FLEX TOUCH SC SCH ×2 (08:03→14:05)
[2017-06-02] MEDS: DULoxetine 30 MG CAP (CYMBALTA) PO SCH (08:13)
[2017-06-02] MEDS: ACETAMINOPHEN TAB 650MG DOSE (2X325MG) PO PRN (12:11)
[2017-06-02 14:00] VITALS: BP 103/51
[2017-06-02 20:30] VITALS: BP 121/59
[2017-06-03 06:00] VITALS: BP 131/63
[2017-06-03] MEDS: CIPROFLOXACIN 250 MG TAB PO SCH ×2 (06:14→17:55)
[2017-06-03] MEDS: GLIMEPIRIDE 2 MG TAB PO SCH (07:38)
[2017-06-03] MEDS: metFORMIN (GLUCOPHAGE) 1000 MG TABLET PO SCH ×2 (07:39→17:55)
[2017-06-03] MEDS: HumaLOG INSULIN (NovoLOG) PER UNIT SC SCH ×3 (07:39→17:54)
[2017-06-03] MEDS: LACTOBACILLUS ACIDOPHILUS CAP (BACID) PO SCH ×2 (07:39→17:55)
[2017-06-03] MEDS: buPROPion **XL** TABLET 150MG (WELLBUTRIN XL) PO SCH (08:13)
[2017-06-03] MEDS: TRESIBA FLEX TOUCH SC SCH (08:13)
[2017-06-03] MEDS: PRAVASTATIN 20 MG TAB PO SCH (08:13)
[2017-06-03] MEDS: DOCUSATE SODIUM 100 MG CAP PO SCH ×2 (08:13→20:52)
[2017-06-03] MEDS: DULoxetine 30 MG CAP (CYMBALTA) PO SCH (08:13)
[2017-06-03] MEDS: LISINOPRIL *2.5 MG* TAB PO SCH (08:14)
[2017-06-03] MEDS: FAMOTIDINE 20 MG TAB PO SCH ×2 (08:14→20:53)
[2017-06-03] MEDS: HYDROXYCHLOROQUINE 200 MG TAB PO SCH ×2 (08:14→20:53)
[2017-06-03] MEDS: GEMFIBROZIL 600 MG TAB PO SCH ×2 (08:14→20:52)
[2017-06-03] MEDS: ATENOLOL 50 MG TAB PO SCH (08:14)
[2017-06-03] MEDS: CYCLOBENZAPRINE 10 MG TAB PO SCH ×3 (08:15→20:52)
[2017-06-03] MEDS: ACETAMINOPHEN TAB 650MG DOSE (2X325MG) PO PRN (13:11)
[2017-06-03 14:00] VITALS: BP 136/71
[2017-06-03 20:00] VITALS: BP 120/58
[2017-06-04 06:00] VITALS: BP 121/58
[2017-06-04] MEDS: CIPROFLOXACIN 250 MG TAB PO SCH (06:29)
[2017-06-04 07:02] LABS: MEAN CORPUSCULAR HGB CONC 34.6 g/dl (32.0-36.5); MEAN CORPUSCULAR VOLUME 86.8 fl (80.0-96.0); RED CELL DISTRIBUTION WIDTH 14.5 % (11.5-14.5); WHITE BLOOD COUNT 9.7 K/mm3 (4.0-10.0)
[2017-06-04 07:11] LABS: ALBUMIN 3.4 GM/DL (3.2-5.2); ALBUMIN/GLOBULIN RATIO 0.83 (1.00-1.93); ALKALINE PHOSPHATASE 129 U/L (45-117); ALT/SGPT 30 U/L (12-78); ANION GAP 10 MEQ/L (8-16); AST/SGOT 13 U/L (15-37); BILIRUBIN,TOTAL 0.2 MG/DL (0.2-1.0); BLOOD UREA NITROGEN 11 MG/DL (7-18); CARBON DIOXIDE LEVEL 28 MEQ/L (21-32); CHLORIDE LEVEL 103 MEQ/L (98-107); CREATININE FOR GFR 0.47 MG/DL (0.55-1.02); GLOMERULAR FILTRATION RATE > 60.0 (>51); GLUCOSE, FASTING 96 MG/DL (70-105); POTASSIUM SERUM 4.1 MEQ/L (3.5-5.1); SODIUM LEVEL 141 MEQ/L (136-145); TOTAL PROTEIN 7.5 GM/DL (6.4-8.2)
[2017-06-04] MEDS: DOCUSATE SODIUM 100 MG CAP PO SCH (08:29)
[2017-06-04] MEDS: HYDROXYCHLOROQUINE 200 MG TAB PO SCH (08:29)
[2017-06-04] MEDS: HumaLOG INSULIN (NovoLOG) PER UNIT SC SCH (08:29)
[2017-06-04] MEDS: CYCLOBENZAPRINE 10 MG TAB PO SCH (08:29)
[2017-06-04] MEDS: DULoxetine 30 MG CAP (CYMBALTA) PO SCH (08:29)
[2017-06-04] MEDS: metFORMIN (GLUCOPHAGE) 1000 MG TABLET PO SCH (08:29)
[2017-06-04] MEDS: GEMFIBROZIL 600 MG TAB PO SCH (08:29)
[2017-06-04 08:30] VITALS: BP 121/58
[2017-06-04] MEDS: LISINOPRIL *2.5 MG* TAB PO SCH (08:30)
[2017-06-04] MEDS: LACTOBACILLUS ACIDOPHILUS CAP (BACID) PO SCH (08:30)
[2017-06-04] MEDS: PRAVASTATIN 20 MG TAB PO SCH (08:30)
[2017-06-04] MEDS: ATENOLOL 50 MG TAB PO SCH (08:30)
[2017-06-04] MEDS: FAMOTIDINE 20 MG TAB PO SCH (08:30)
[2017-06-04] MEDS: buPROPion **XL** TABLET 150MG (WELLBUTRIN XL) PO SCH (08:31)
[2017-06-04] MEDS: TRESIBA FLEX TOUCH SC SCH (08:31)
[2017-06-04] MEDS: GLIMEPIRIDE 2 MG TAB PO SCH (08:31)
[2017-06-04] MEDS ORDERED: DEXA2TA PO (08:58)
--- NOTE | 2017-06-04 17:29 | PMRDS ---
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 Dukes on 05/16/2017. HISTORY: The patient is a 52-year-old right-handed white female who back in the spring started having some flu-like illnesses and then started getting progressively weaker with proximal weakness and was treated at [facility] with IVIG for suspected CIDP,(Chronic Idiopathic Demylinating Polyneuropathy) but her symptoms worsened after the treatment and she was referred to neurosurgery at [facility], assessed by Dr. Dukes, and felt to have severe C5-6 stenosis for which she underwent decompression surgery on 05/16/2017. However, patient continued to have problems with proximal weakness, especially of the lower extremities, and now some combination of weakness due to stiffness and pain in the parascapular muscles originating from the cervical (C) spine and having difficulty with shoulder control and strength. The patient, however, was felt to be able to participate in acute intensive neurorehabilitation and was discharged from [facility] and admitted to [facility] on 05/25/2017, in preparations of training of her and her to facilitate her return to home. PROCEDURES PERFORMED: None. DIAGNOSTICS AND LABORATORIES: Patient admitted on 05/25/2017, and had CBC on 05/26/2017, showing an elevated white blood cell count at 17.2 thousand with hemoglobin and hematocrit of 13.1 and 37.7%, but platelets elevated at 522,000. Subsequently, she had some slide as she became more hydrated and treatment of urinary tract infection which was found with a urinalysis on admission showing trace leukocyte esterase, white blood cells, 3+ urine bacteria, and cultured out as Escherichia (E) coli sensitive to Ancef for which patient is on treatment regimen. Chemistry showed patient with a low sodium of 134 on admission and BUN mildly elevated at 19, otherwise normal electrolytes and creatinine. Then on 06/04/2017, patient with normal electrolytes, BUN, creatinine, and a fasting glucose of 96, and a normal albumin of 3.4, alkaline phosphatase which had improved from 158 on admission to 129, and otherwise normal liver function tests. HOSPITAL COURSE: Patient was admitted on 05/25/2017, for a trial of neurorehabilitation with physical and occupational therapies, along with rehabilitation nursing and podiatry. In occupational therapy, patient who is showing principal deficit of hip and knee musculature, was contact guard assist on [id number], [id number], toilet commode transfers, standby assist in bathing and dressing upper body, contact guard lower body, modified independent grooming, contact guard toileting, independent eating, and toileting and hygiene being supervision touch assist, and balance being good sitting, good minus standing static, fair plus dynamic standing, which transitioned up to modified independent to independent with good balance for sitting, standing, except for dynamic standing was good minus. In physical therapy, ambulating 100 feet with a rolling walker contact guard assist, but fatiguing and fatiguing quickly on exercises and by discharge, ambulating 150 feet modified independent with front wheeled walker and now able to do six stairs, where she was doing none on admission, and having been noted to ambulate in excess of 150 feet times two. The patient with no complications during admission. DISCHARGE MEDICATIONS: Include: - Cipro 500 mg twice a day for 2 more days to treat the (E) coli urinary tract infection (UTI) - dexamethasone 2 mg daily for the next 4 days and then discontinue it, for completing the steroid taper - Tylenol 650 mg every 4 hours as needed for pain - Apidra SoloStar injection before food - atenolol 50 mg daily - Wellbutrin XL 300 mg daily - Colace 100 mg twice a day - Cymbalta 30 mg daily - famotidine 10 mg twice a day for gastroesophageal reflux disease (GERD) and acid protection - gemfibrozil 600 mg twice a day for triglycerides - glimepiride 4 mg twice a day for diabetic control - Plaquenil 200 mg twice a day for lupus - lisinopril 2.5 mg daily for hypertension - metformin 1000 mg twice a day for diabetic control - pravastatin 20 mg daily for cholesterol - probiotic one capsule at bedtime for bowel program - Tresiba FlexTouch 20 units subcutaneous daily for diabetic control - Flexeril, the patient transitioned from 10 mg three times a day to 10 mg twice a day as needed for spasm, 30 tablets issued She is also to restart her Bydureon for her diabetes as well. DISCONTINUED MEDICATIONS: Dulcolax has been discontinued. The patient is discontinued off heparin injections, also the higher doses of dexamethasone as she has gone through her taper, and the substituted Lantus and Humalog insulin during hospitalization, also milk of magnesia, Zofran, and Senna laxative. DISCHARGE PLAN: Patient discharged to home. Home health care for assisting her in mortgage loan interviewer getting patient up and organized has been sent. Patient and her family have made arrangements for ongoing physical therapy. Patient will followup with her primary care, Dr. Roman, within 2 weeks and followup with Dr. Dukes at [facility] as previously scheduled. TIME SPENT ON DISCHARGE: Greater than 35 minutes. MTDD
== END 2017-06-04 12:20 | disposition home health service (06) | DRG 43 ==
LOC: M PM&R 11:50
PROVIDERS: ADMIT Physical Medicine & Rehabilitation; ATTEND Physical Medicine & Rehabilitation
DX: G61.81 Chronic inflammatory demyelinating polyneuritis (principal); E11.42 Type 2 diabetes mellitus with diabetic polyneuropathy; E11.44 Type 2 diabetes mellitus with diabetic amyotrophy; N39.0 Urinary tract infection, site not specified; M43.22 Fusion of spine, cervical region; I25.10 Atherosclerotic heart disease of native coronary artery without angina pectoris; I10 Essential (primary) hypertension; E78.5 Hyperlipidemia, unspecified; G47.33 Obstructive sleep apnea (adult) (pediatric); Z99.89 Dependence on other enabling machines and devices; E66.9 Obesity, unspecified; Z82.49 Family history of ischemic heart disease and other diseases of the circulatory system; M62.81 Muscle weakness (generalized); R20.0 Anesthesia of skin; Z88.1 Allergy status to other antibiotic agents; Z79.899 Other long term (current) drug therapy

== ENCOUNTER → 2017-07-03 | Outpatient (CLI) | payer SELFPAY ==
[~2017-07-03] MED LIST changes: +ACET1TAB17 PO; +BISA10SU4 PR; +CIPR500T3 PO; +CYCL10TA PO; +DEXA2TA PO; +DEXA4TA PO; -DOCUSATE SODIUM 100 MG CAP PO SCH; +FAMO1TAB25 PO; +HEPA500020 SC; +INSUHUMDS SC; +INSULANT SC; +MILKSUS5 PO; +ONDA4VLL IV; +SENN1TAB10 PO; +STOO100C PO
--- NOTE | 2017-07-04 04:33 | REP ---
Clinical: Pain. Technique: AP, lateral, flexion/extension, bilateral oblique and open mouth views of the cervical spine. Findings: The patient is noted to be status post posterior fusion and laminectomy at C4 through C7. Alignment is maintained. No acute fracture / compression injury or subluxation. Advanced anterior degenerative disc osteophyte complexes are noted primarily at C5-6, C6-7 and C7-T1. Open mouth view demonstrates normal C1-C2 articulation and odontoid process. Oblique views demonstrate patent neural foramen. Paravertebral soft tissues are within normal limits. Impression: 1. Evidence for prior posterior fixation and laminectomy. 2. Advanced degenerative disc osteophyte complex most pronounced at C5-6, C6-7. No acute fracture / compression injury or subluxation identified. Signed by Carlos Haider MD 07/04/2017 04:25 A
== END ==
LOC: M RAD 13:46
PROVIDERS: ATTEND Neurological Surgery
DX: G95.9 Disease of spinal cord, unspecified (principal); Z98.1 Arthrodesis status

== ENCOUNTER 2017-08-22 10:51 | Inpatient (IN) | payer SELFPAY ==
[~2017-08-22] VITALS: Ht 157.5 cm; Wt 83.5 kg
[~2017-08-22 10:51] MED LIST changes: +GLIMEPIRIDE 2 MG TAB PO SCH
[2017-08-22 11:50] VITALS: BP 120/71
[2017-08-22] MEDS ORDERED: GLUCAGON FOR INJ 1 MG VIAL (J1610) SC PRN (12:00)
[2017-08-22] MEDS ORDERED: DEXTROSE 50% 50 ML SYRINGE IV PRN (12:00)
[2017-08-22] MEDS ORDERED: GLUCOSE 4 GM CHEW TABLET PO PRN (12:00)
[2017-08-22] MEDS ORDERED: INSULANT SC (14:00)
[2017-08-22] MEDS ORDERED: INSUHUMDS SC (14:07)
[2017-08-22] MEDS ORDERED: APIDINJ SC (14:07)
[2017-08-22] MEDS ORDERED: STOO100C PO (14:17)
[2017-08-22] MEDS ORDERED: LOVE1INJ SC (14:17)
[2017-08-22] MEDS ORDERED: OCEA0.654 (14:19)
[2017-08-22] MEDS: DULoxetine 30 MG CAP (CYMBALTA) PO SCH (14:59)
[2017-08-22] MEDS: LISINOPRIL *2.5 MG* TAB PO SCH (14:59)
[2017-08-22] MEDS: ATENOLOL 50 MG TAB PO SCH (15:00)
[2017-08-22] MEDS: buPROPion **XL** TABLET 150MG (WELLBUTRIN XL) PO SCH (15:00)
[2017-08-22] MEDS: LEVEMIR (INSULIN DETEMIR) 1 UNITS/0.01ML SC SCH (15:00)
[2017-08-22] MEDS: HumaLOG INSULIN (NovoLOG) PER UNIT SC SCH (17:26)
[2017-08-22] MEDS ORDERED: metFORMIN (GLUCOPHAGE) 1000 MG TABLET PO SCH (18:00)
[2017-08-22 20:00] VITALS: BP 130/64
--- NOTE | 2017-08-22 20:43 | PMRHPE ---
DATE OF ADMISSION: 08/22/2017 REASON FOR ADMISSION: Patient is a 52-year-old, right-handed, white female who is accepted in transfer from [facility] for rehabilitation of what is felt to be chronic idiopathic demyelinating polyneuropathy (CIDP). Patient who previously has been here in May of 2017 for rehabilitation of the same condition developed an exacerbation about a month or so ago and was admitted to for further evaluation and treatment on 08/12/2017 as she had become progressively weaker with more numbness, especially in the lower extremities and some recurrent falls. The patient was assessed, including some electrodiagnostic evaluation and is felt to have CIDP along with history of lupus as her underlying source of this progressive weakness. This time, the patient did not have any flu-like illness preceding her exacerbation and she has marked decrease from being moderate independent in almost all activities of daily living (ADLs) and short to moderate distance ambulation using adaptive equipment to now being moderate to minimum assist in most of these areas. She does not having two falls where she was lowered to the floor during her recent acute hospitalization due to her lower extremities not being able to hold up. The patient wishes to improve her strength and function and return to living with her family who are very supportive in [place], [place]. PAST MEDICAL HISTORY: 1. Guillain-[place] Syndrome was diagnosed at age 19 while the patient was in [place], though this may have been the first bout of the chronic idiopathic demyelinating polyneuropathy (CIDP). 2. Type 2 diabetes mellitus with polyneuropathy. 3. Positive CIDP episode last spring. 4. Status post C4-7 laminectomy and fusion with cervical decompression. 5. Atherosclerotic cardiovascular disease including hypertension and hyperlipidemia. 6. Obesity with obstructive sleep apnea, on continuous positive airway pressure (CPAP). FAMILY HISTORY: Includes atherosclerotic cardiovascular disease. 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 She does not smoke. She does not drink alcohol. She does not use illicit drugs. She lives with her and one son. The patient had advanced to a modified independent level at the time of discharge in mid May 2017. She and her family live in a two story home which was configured so she could remain on the first floor and a ramp has been added to improve access. MEDICATIONS ON ADMISSION: Tylenol, atenolol, Wellbutrin XL, Cymbalta, gemfibrozil, Amaryl, glucagon, glucose, Plaquenil, Levemir insulin has been ordered, Humalog insulin sliding scale, lactobacillus, lisinopril, metformin, pravastatin. The patient will transition from Humalog and detemir insulin to her SoloStar insulin pen and Tresiba when family is able to bring it in from home. ALLERGIES: KEFLEX. REVIEW OF SYSTEMS: Basically the weakness with some ongoing back pain, otherwise negative. PHYSICAL EXAMINATION: The patient is a short, overweight, middle-aged, white female with large frame who is 5 feet, 2 inches, weighs 82 kg, and is alert and oriented times four. She appears to be in no acute distress. VITAL SIGNS: Temperature is 96.0, blood pressure 120/71 with a pulse of 85, respiration rate of 16, and pulse oximetry 98% on room air. HEENT: Normocephalic, atraumatic. Pupils are equal, round, and reactive to light and accommodation and extraocular motions are intact. There is no facial asymmetry. Tongue is midline. Nares are patent on the nose and septum is midline. No drainage noted. No lesions in the oropharynx noted. LUNGS: Clear in all holley to auscultation. CORONARY: Regular rate and rhythm with normal S1, S2 without S3, S4, murmurs or rubs. ABDOMEN: Obese, soft, nontender with normal bowel sounds present in all quadrants. NEUROLOGICALLY: The patient is alert and oriented times four. Speech is clear, coherent, and appropriate. Affect is pleasant and cooperative with just the slightest amount of anxiousness. Memory is intact. There is no dysarthria noted on speech. The patient demonstrating greater than antigravital motor in bilateral lower and upper extremities. Further testing will be done by physical and occupational therapy. Sensorium shows diminution in light touch and vibration in bilateral upper and lower extremities from near to far, though the patient is still able to feel light touch and vibration in toes and fingertips, but it is notably less than in the legs and forearms which are less than the thighs and arms. DIAGNOSTIC DATA: Patient with positive F waves in the lower extremities on evaluation at [facility]. ASSESSMENT AND PLAN: 1. Rehabilitation of what appears to be chronic idiopathic demyelinating polyneuropathy with some element of diabetic amyopathy, superimposed on her diabetic polyneuropathy. The patient at this time is requiring minimal assist to contact guard in most activities of daily living (ADLs) and mobilities. Previously, we had seen her in May 2017. She left at the modified independent to independent level. She does have adaptive equipment and there has been lots of family training already occur, so this should precede well. What is unknown is whether the patient will have any additional responses to prior treatment at [facility], especially to intravenous immunoglobulin (IVIG). 2. Type 2 diabetes mellitus with polyneuropathy. The patient at this time will be on insulin sliding scale and using detemir 20 units daily for support of her pancreas. She will also use metformin 1 gram twice a day along with Amaryl 4 mg daily. Internal medicine service has been consulted and will assist with this and other medical problems. 3. Lupus. This has been considered a part of the patient's problem. No treatment beyond the Plaquenil at this time. Whether neurology will consider other potential sources from diseases such as Eaton-Lambert or any other tumor secreting or antibody generating mass will be a factor for outside the course of this admission and treatment, but the patient and her family are made aware that other sources of demyelinating polyneuropathy do exist. 4. Obstructive sleep apnea. The patient will continue with her continuous positive airway pressure (CPAP). 5. Obesity. We will assess the patient's diet and need for any interventions. Baseline laboratories to monitor liver function, renal function, nutrition, and blood counts will be ordered. POSTADMISSION PHYSICIAN EVALUATION: The patient is consistent with preadmission evaluation and screening based not only on the assessment but also her previous admission here and her level of function before coming to the unit this time. I do think that the patient is highly motivated, able to participate in three hours of therapy per day, has a wonderful support system, and will be able to progress to a level where she will return home. Due to the nature of her neurologic disease, exercise and activity should be a short of fatiguing muscles as before. I do feel that the patient has a good prognosis for returning home with family and I estimate her approximate length of stay is seven days. Time spent on chart review, history and physical, and documentation: Greater than 70 minutes. GERARDO
[2017-08-22] MEDS: LACTOBACILLUS ACIDOPHILUS CAP (BACID) PO SCH (21:10)
[2017-08-22] MEDS: GEMFIBROZIL 600 MG TAB PO SCH (21:11)
[2017-08-22] MEDS: PRAVASTATIN 20 MG TAB PO SCH (21:11)
[2017-08-22] MEDS: HYDROXYCHLOROQUINE 200 MG TAB PO SCH (21:11)
--- NOTE | 2017-08-23 05:51 | CR ---
DATE OF CONSULTATION: 08/23/2017 REASON FOR CONSULTATION: Medical management. REFERRING PHYSICIAN: Dr. Mendoza. HISTORY OF PRESENT ILLNESS: The patient is a 52-year-old female with a past medical history significant for Guillain-Everett, type 2 diabetes, chronic idiopathic demyelinating polyneuropathy, hypertension, hyperlipidemia, obstructive sleep apnea (WALKER) on continuous positive airway pressure (CPAP), who was brought to [facility] acute rehabilitation unit on 08/22/2017, from [place]. Per patient, the patient started having worsening of the lower extremity numbness and weakness since earlier in the year. The patient was being seen in [place] prior to the current admission. PAST MEDICAL HISTORY: 1. Guillain-Everett syndrome. 2. Type 2 diabetes with neuropathy. 3. Chronic idiopathic demyelinating polyneuropathy. 4. Cervical stenosis status post decompression. 5. Hypertension. 6. Dyslipidemia. 7. Obstructive sleep apnea on CPAP. PAST SURGICAL HISTORY: 1. C4, C5, C6, C7 fusion. 2. Cholecystectomy. 3. section times four. SOCIAL HISTORY: Denies smoking. Denies drinking alcohol. Denies recreational drug use. REVIEW OF SYSTEMS: No fever, no chills. HEENT: No vision change, no auditory changes. CARDIOVASCULAR: No chest pain, no palpitations. RESPIRATORY: No shortness of breath. No cough. GASTROINTESTINAL (GI): No nausea, no vomiting, no abdominal pain. MUSCULOSKELETAL: Progressive muscle weakness bilateral lower extremity. NEUROLOGIC: Decreased sensation from the peripheral. Now the patient does not have significant sensation below the bilateral knees. There is some decrease in sensation of the hands and also the lateral side of the upper extremities bilaterally. OBJECTIVE: VITAL SIGNS: Temperature is 98.7, pulse 101, respirations 17, blood pressure 130/68, (please verify), pulse oximetry 98% on room air. GENERAL: No sign of acute distress. Alert and oriented times three. HEENT: Normocephalic, atraumatic. Extraocular motor grossly intact. CARDIOVASCULAR: Positive S1, S2. Regular rate. LUNGS: Clear to auscultation bilaterally. ABDOMEN: Soft, nontender, nondistended. Bowel sounds present. No rebound, no guarding. EXTREMITIES: No significant edema. No sign of cyanosis. NEUROLOGIC: Significant decreased sensation mainly below the bilateral knees. There is still some mild sensation just above the left knee. Some decreased sensation of bilateral hands. Has pain performing right lower extremity range of motion. Muscle strength 5/5 on the bilateral upper extremities and the left lower extremity. Muscle strength around the right hip joint is still 5/5. LABORATORY DATA: None. Will follow the labs in the morning. ASSESSMENT AND PLAN: 1. Type 2 diabetes. The patient will be on before food and at bedtime sliding scale. The patient will be on consistent carbohydrate diet. 2. Guillain-Everett syndrome. The patient is currently in acute rehabilitation. 3. Hypertension. On atenolol and lisinopril. 4. Anxiety and depression. On Cymbalta and Wellbutrin. 5. History of cervical stenosis, status post cervical decompression, and C4-C7 fusions. 6. Obstructive sleep apnea on continuous positive airway pressure (CPAP). 7. Hypercholesterolemia. On Lopid. 8. History of lupus, on Plaquenil. 9. Deep venous thrombosis (DVT) prophylaxis. The patient is on thromboembolism deterrent stockings (TEDs) and sequential compression devices.
[2017-08-23 06:00] VITALS: BP 131/65
[2017-08-23 07:47] LABS: BASO # 0.1 10^3/uL (0.0-0.2); BASO % 1.1 % (0.0-1.0); EOS # 0.5 10^3/uL (0.0-0.50); EOS % 7.6 % (0.0-3.0); IMMATURE GRANULOCYTE % 0.3 % (0-0); LYMPH # 1.8 10^3/uL (1.5-4.5); LYMPH % 27.3 % (24.0-44.0); MEAN CORPUSCULAR HEMOGLOBIN 28.3 pg (27.0-33.0); MEAN CORPUSCULAR HGB CONC 33.6 g/dl (32.0-36.5); MEAN CORPUSCULAR VOLUME 84.3 fl (80.0-96.0); MONO # 0.7 10^3/uL (0.0-0.8); MONO % 11.2 % (0.0-5.0); NEUTROPHILS # 3.5 10^3/uL (1.8-7.7); NEUTROPHILS % 52.5 % (36.0-66.0); PLATELET COUNT, AUTOMATED 286 10^3/uL (150-450); RED CELL DISTRIBUTION WIDTH 13.8 % (11.5-14.5); WHITE BLOOD COUNT 6.6 10^3/uL (4.0-10.0)
[2017-08-23] MEDS: HumaLOG INSULIN (NovoLOG) PER UNIT SC SCH ×3 (07:59→17:24)
[2017-08-23] MEDS: LEVEMIR (INSULIN DETEMIR) 1 UNITS/0.01ML SC SCH (08:00)
[2017-08-23] MEDS: buPROPion **XL** TABLET 150MG (WELLBUTRIN XL) PO SCH (08:00)
[2017-08-23] MEDS: LACTOBACILLUS ACIDOPHILUS CAP (BACID) PO SCH ×2 (08:00→20:34)
[2017-08-23] MEDS: HYDROXYCHLOROQUINE 200 MG TAB PO SCH ×2 (08:00→20:34)
[2017-08-23] MEDS: GEMFIBROZIL 600 MG TAB PO SCH ×2 (08:01→20:34)
[2017-08-23] MEDS: DULoxetine 30 MG CAP (CYMBALTA) PO SCH (08:01)
[2017-08-23] MEDS: ATENOLOL 50 MG TAB PO SCH (08:02)
[2017-08-23] MEDS: LISINOPRIL *2.5 MG* TAB PO SCH (08:02)
[2017-08-23 08:18] LABS: ALBUMIN 3.7 GM/DL (3.2-5.2); ALBUMIN/GLOBULIN RATIO 0.67 (1.00-1.93); ALKALINE PHOSPHATASE 107 U/L (45-117); ALT/SGPT 26 U/L (12-78); ANION GAP 11 MEQ/L (8-16); AST/SGOT 24 U/L (7-37); BILIRUBIN,TOTAL 0.3 MG/DL (0.2-1.0); BLOOD UREA NITROGEN 10 MG/DL (7-18); CALCIUM LEVEL 9.5 MG/DL (8.5-10.1); CARBON DIOXIDE LEVEL 26 MEQ/L (21-32); CHLORIDE LEVEL 102 MEQ/L (98-107); CREATININE FOR GFR 0.53 MG/DL (0.55-1.02); GLOMERULAR FILTRATION RATE > 60.0 (>51); GLUCOSE, FASTING 158 MG/DL (70-105); SODIUM LEVEL 139 MEQ/L (136-145); TOTAL PROTEIN 9.2 GM/DL (6.4-8.2)
[2017-08-23] MEDS ORDERED: NON-FORMULARY COMPOUNDED MEDICATION SC SCH (09:00)
[2017-08-23] MEDS: APIDRA 100 UNIT/ML SC SCH ×2 (12:00→17:30)
--- NOTE | 2017-08-23 12:15 | IPNPDOC ---
PM&R Progress Note Mother Baby Rn Progress Note DATE OF SERVICE: 08/23/17 DATE OF ADMISSION: Aug 22, 2017 at 11:37 INPATIENT REHABILITATION ADMISSION DAY: #2 SUBJECTIVE: Patient is a 52-year-old, right-handed, white female who is accepted in transfer from [facility] for rehabilitation of what is felt to be chronic idiopathic demyelinating polyneuropathy (CIDP). Patient who previously has been here in May of 2017 for rehabilitation of the same condition developed an exacerbation about a month or so ago and was admitted to [facility] for further evaluation and treatment on 08/12/2017 as she had become progressively weaker with more numbness, especially in the lower extremities and some recurrent falls. The patient was assessed, including some electrodiagnostic evaluation and is felt to have CIDP along with history of lupus as her underlying source of this progressive weakness. Patient without significant pain except for some stiffness medicine feeling a lump in her superior right posterior neck. ALLERGIES: See Below MEDICATIONS: Reviewed, see below. OBJECTIVE: VITAL SIGNS: Please see below. PHYSICAL EXAMINATION: GENERAL: Overweight short middle-age white female in little to no acute distress however with weakness in bilateral upper and lower extremities. Patient has alert and well oriented and pleasant and cooperative with slight anxiousness. HEENT: Normocephalic/atraumatic. CARDIOVASCULAR: Regular rate and rhythm with normal S1-S2 without S3-S4 murmurs or rubs. 2 out 4 bilateral radial pulses. LUNGS: All holley clear auscultation. ABDOMEN: Obese, nontender with normal bowel sounds in all quadrants. NEUROLOGICAL: Alert and oriented 4. Speech is clear coherent and appropriate. Memory is intact. Patient with 3-4 out of 5 bilateral upper and lower extremities motor and some decrease in light touch and vibration especially in the distal lower extremities. SKIN: Cervical incision on neck is healed. Otherwise skin grossly intact. LABORATORY DATA: Reviewed. Please see below. MICROBIOLOGY: Please see below. IMAGING: No new imaging. DVT prophylaxis ordered?: PAGE gomez. ASSESSMENT AND PLAN: 1. Rehabilitation of CIDP: We'll proceed with physical occupational therapy to work on neuromuscular facilitation of bilateral upper and lower extremity and adaptive ADLs mobility to facilitate patient's return to home. Anticipated length of stay 7 days will review at team rounds today. 2. Diabetes mellitus type 2: Dr. Estrada has discontinued the metformin and we are still pending patient's bringing in her regular diabetic meds. We will proceed with detemir daily dose and a Humalog sliding scale. We will continue to review before meals and at bedtime blood sugars. 3. Lupus: Will watch for any flareups and continue Plaquenil for now. 4. Obstructive sleep apnea: We'll continue with patient's CPAP machine and settings. TIME SPENT: Chart Review, examination and documentation require greater than 25 minutes. Allergies Coded Allergies: Cephalexin (Verified Allergy, Unknown, 05/03/17) Vital Signs Vital Signs Date Time Temp Pulse Resp B/P (MAP) Pulse Ox O2 Delivery O2 Flow Rate FiO2 08/23/17 08:02 139/74 08/23/17 08:02 104 08/23/17 08:00 Room Air 08/23/17 06:00 98.0 17 98 Laboratory Data CBC/BMP Laboratory Tests 08/23/17 07:17 Red Blood Count 4.27, Mean Corpuscular Volume 84.3, Mean Corpuscular Hemoglobin 28.3, Mean Corpuscular Hemoglobin Concent 33.6, Red Cell Distribution Width 13.8 , Neutrophils (%) (Auto) 52.5, Lymphocytes (%) (Auto) 27.3, Monocytes (%) (Auto ) 11.2 H, Eosinophils (%) (Auto) 7.6 H, Basophils (%) (Auto) 1.1 H, Neutrophils # (Auto) 3.5, Lymphocytes # (Auto) 1.8, Monocytes # (Auto) 0.7, Eosinophils # ( Auto) 0.5, Basophils # (Auto) 0.1, Calcium Level 9.5, Aspartate Amino Transf ( AST/SGOT) 24, Alanine Aminotransferase (ALT/SGPT) 26, Alkaline Phosphatase 107, Total Bilirubin 0.3, Total Protein 9.2 H, Albumin 3.7 Labs 24H Laboratory Tests 2 08/22/17 16:54: Bedside Glucose (Misc Panel) 196H 08/22/17 20:47: Bedside Glucose (Misc Panel) 139H 08/23/17 07:05: Bedside Glucose (Misc Panel) 166H 08/23/17 07:17: Immature Granulocyte % (Auto) 0.3H, White Blood Count 6.6, Red Blood Count 4.27 , Hemoglobin 12.1, Hematocrit 36.0, Mean Corpuscular Volume 84.3, Mean Corpuscular Hemoglobin 28.3, Mean Corpuscular Hemoglobin Concent 33.6, Red Cell Distribution Width 13.8, Platelet Count 286, Neutrophils (%) (Auto) 52.5, Lymphocytes (%) (Auto) 27.3, Monocytes (%) (Auto) 11.2H, Eosinophils (%) (Auto) 7.6H, Basophils (%) (Auto) 1.1H, Neutrophils # (Auto) 3.5, Lymphocytes # (Auto) 1.8, Monocytes # (Auto) 0.7, Eosinophils # (Auto) 0.5, Basophils # (Auto) 0.1, Immature Granulocyte # (Auto) 0.0, Nucleated Red Blood Cells % (auto) 0.0, Anion Gap 11, Glomerular Filtration Rate > 60.0, Blood Urea Nitrogen 10, Creatinine 0.53L, Sodium Level 139, Potassium Level 4.0, Chloride Level 102, Carbon Dioxide Level 26, Calcium Level 9.5, Aspartate Amino Transf (AST/SGOT) 24 , Alanine Aminotransferase (ALT/SGPT) 26, Alkaline Phosphatase 107, Total Bilirubin 0.3, Total Protein 9.2H, Albumin 3.7, Albumin/Globulin Ratio 0.67L 08/23/17 11:51: Bedside Glucose (Misc Panel) 159H Current Medications Current Medications Current Medications Acetaminophen (Tylenol Tab) 650 mg Q4HP PRN PO MILD PAIN (PS 1-4); Start at 12:00; Stop 09/21/17 at 11:59 Atenolol (Tenormin) 50 mg DAILY PO Last administered on 08/23/17 08:02; Start 08/22/17 at 09:00; Stop 09/21/17 at 08:59 Bupropion HCl (Wellbutrin Xl) 300 mg QAM PO Last administered on 08/23/17 08: 00; Start 08/22/17 at 09:00; Stop 09/21/17 at 08:59 Dextrose (Dextrose 50%) 25 ml ASDIRECTED PRN IV SEE LABEL COMMENTS; Start 08/22 at 12:00; Stop 09/21/17 at 11:59 Duloxetine HCl (Cymbalta) 30 mg DAILY PO Last administered on 08/23/17 08:01; Start 08/22/17 at 09:00; Stop 09/21/17 at 08:59 Gemfibrozil (Lopid) 600 mg BID PO Last administered on 08/23/17 08:01; Start 08/22/17 at 21:00; Stop 09/21/17 at 20:59 Glimepiride (Amaryl) 4 mg DAILY@0730 PO ; Start 08/22/17 at 07:30; Stop at 01:37; Status DC Glucagon (Glucagon) 1 mg ASDIRECTED PRN SC SEE LABEL COMMENTS; Start 08/22/17 at 12:00; Stop 09/21/17 at 11:59 Glucose (Glucose) 16 GM ASDIRECTED PRN PO SEE LABEL COMMENTS; Start 08/22/17 at 12:00; Stop 09/21/17 at 11:59 Home Med (Med Rec Complete!) ASDIRECTED XX ; Start 08/22/17 at 14:30; Stop 08/22/17 at 14:32; Status DC Hydroxychloroquine Sulfate (Plaquenil) 200 mg BID PO Last administered on 08:00; Start 08/22/17 at 21:00; Stop 09/21/17 at 20:59 Insulin Detemir (Levemir Insulin) 20 units QAM SC Last administered on 08:00; Start 08/22/17 at 09:00; Stop 09/21/17 at 08:59 Insulin Human Lispro (HumaLOG INSULIN) SEE PROTOCOL TABLE QHS SC ; Start at 21:00; Stop 09/22/17 at 20:59 Insulin Human Lispro (HumaLOG INSULIN) See Protocol Table ... AC SC Last administered on 08/23/17 11:57; Start 08/22/17 at 17:30; Stop 09/21/17 at 17:29 Lactobacillus Acidophilus (Bacid) 1 ea BID PO Last administered on 08/23/17 08 :00; Start 08/22/17 at 21:00; Stop 09/21/17 at 20:59 Lisinopril (Prinivil) 2.5 mg DAILY PO Last administered on 08/23/17 08:02; Start 08/22/17 at 09:00; Stop 09/21/17 at 08:59 Metformin HCl (Glucophage) 1,000 mg BID@08,18 PO Last administered on 17:26; Start 08/22/17 at 18:00; Stop 08/23/17 at 01:37; Status DC Miscellaneous (Unresolved Patient Own Med Order) SEE LABEL COMMENTS UNRESOLVED XX ; Start 08/22/17 at 00:01; Stop 09/21/17 at 00:00 Non-Formulary Medication Patient to take her own Api... ASDIRECTED SC ; Start 08/22/17 at 12:00; Stop 09/21/17 at 11:59; Status UNV Non-Formulary Medication Patient to take own Alfonso... DAILY SC ; Start 08/23/17 at 09:00; Stop 09/22/17 at 08:59; Status UNV Pravastatin Sodium (Pravachol) 20 mg QPM PO Last administered on 08/22/17 21: 11; Start 08/22/17 at 21:00; Stop 09/21/17 at 20:59 REBEKA HEDRICK MD Aug 23, 2017 12:15
[2017-08-23 14:39] VITALS: BP 125/58
[2017-08-23] MEDS: PRAVASTATIN 20 MG TAB PO SCH (20:34)
[2017-08-23] MEDS: ACETAMINOPHEN TAB 650MG DOSE (2X325MG) PO PRN (20:36)
[2017-08-23] MEDS ORDERED: HumaLOG INSULIN (NovoLOG) PER UNIT SC SCH (21:00)
[2017-08-23 23:18] VITALS: BP 112/60
[2017-08-24 06:00] VITALS: BP 111/62
[2017-08-24] MEDS: HumaLOG INSULIN (NovoLOG) PER UNIT SC SCH (07:30)
[2017-08-24] MEDS ORDERED: APIDRA SC SCH (07:30)
[2017-08-24] MEDS: INSULIN DEGLUDEC SC SCH (09:00)
[2017-08-24] MEDS: LACTOBACILLUS ACIDOPHILUS CAP (BACID) PO SCH ×2 (09:00→20:57)
[2017-08-24] MEDS: ATENOLOL 50 MG TAB PO SCH (09:00)
[2017-08-24] MEDS: HYDROXYCHLOROQUINE 200 MG TAB PO SCH ×2 (09:01→20:57)
[2017-08-24] MEDS: LISINOPRIL *2.5 MG* TAB PO SCH (09:01)
[2017-08-24] MEDS: DULoxetine 30 MG CAP (CYMBALTA) PO SCH (09:01)
[2017-08-24] MEDS: buPROPion **XL** TABLET 150MG (WELLBUTRIN XL) PO SCH (09:01)
[2017-08-24] MEDS: GEMFIBROZIL 600 MG TAB PO SCH ×2 (09:04→20:57)
[2017-08-24] MEDS: APIDRA 100 UNIT/ML SC SCH ×2 (12:00→16:57)
[2017-08-24] MEDS: [UNRECOGNIZED DRUG - OTHER] XX SCH ×2 (12:13→16:58)
[2017-08-24 14:00] VITALS: BP 90/51
[2017-08-24 20:00] VITALS: BP 129/64
[2017-08-24] MEDS: PRAVASTATIN 20 MG TAB PO SCH (20:57)
[2017-08-25 06:30] VITALS: BP 121/59
[2017-08-25] MEDS: INSULIN DEGLUDEC SC SCH (08:12)
[2017-08-25] MEDS: buPROPion **XL** TABLET 150MG (WELLBUTRIN XL) PO SCH (08:12)
[2017-08-25] MEDS: LACTOBACILLUS ACIDOPHILUS CAP (BACID) PO SCH ×2 (08:13→20:22)
[2017-08-25] MEDS: DULoxetine 30 MG CAP (CYMBALTA) PO SCH (08:13)
[2017-08-25] MEDS: LISINOPRIL *2.5 MG* TAB PO SCH (08:13)
[2017-08-25] MEDS: GEMFIBROZIL 600 MG TAB PO SCH ×2 (08:13→20:22)
[2017-08-25] MEDS: HYDROXYCHLOROQUINE 200 MG TAB PO SCH ×2 (08:13→20:22)
[2017-08-25] MEDS: ATENOLOL 50 MG TAB PO SCH (08:13)
[2017-08-25] MEDS ORDERED: HumaLOG INSULIN (NovoLOG) PER UNIT SC SCH ×2 (12:00→21:00)
[2017-08-25] MEDS: HumaLOG INSULIN (NovoLOG) PER UNIT SC SCH ×2 (12:00→17:13)
[2017-08-25] MEDS: APIDRA 100 UNIT/ML SC SCH (12:45)
[2017-08-25 14:00] VITALS: BP 104/56
[2017-08-25 20:00] VITALS: BP 111/58
[2017-08-25] MEDS: PRAVASTATIN 20 MG TAB PO SCH (20:22)
[2017-08-26 06:00] VITALS: BP 119/74
[2017-08-26] MEDS: ACETAMINOPHEN TAB 650MG DOSE (2X325MG) PO PRN ×2 (09:02→19:31)
[2017-08-26] MEDS: buPROPion **XL** TABLET 150MG (WELLBUTRIN XL) PO SCH (09:03)
[2017-08-26] MEDS: DULoxetine 30 MG CAP (CYMBALTA) PO SCH (09:03)
[2017-08-26] MEDS: LACTOBACILLUS ACIDOPHILUS CAP (BACID) PO SCH ×2 (09:03→20:58)
[2017-08-26] MEDS: ATENOLOL 50 MG TAB PO SCH (09:03)
[2017-08-26] MEDS: GEMFIBROZIL 600 MG TAB PO SCH ×2 (09:03→20:58)
[2017-08-26] MEDS: HYDROXYCHLOROQUINE 200 MG TAB PO SCH ×2 (09:03→20:58)
[2017-08-26] MEDS: LISINOPRIL *2.5 MG* TAB PO SCH (09:03)
[2017-08-26] MEDS: INSULIN DEGLUDEC SC SCH (09:04)
[2017-08-26] MEDS ORDERED: BYDUREON SQ SCH (12:00)
[2017-08-26] MEDS: APIDRA 100 UNIT/ML SC SCH ×2 (12:37→17:30)
[2017-08-26 14:00] VITALS: BP 102/52
[2017-08-26 20:00] VITALS: BP_SYST 104; BP_SYST 114; BP_DIAS 60; BP_DIAS 67
[2017-08-26] MEDS: PRAVASTATIN 20 MG TAB PO SCH (20:58)
[2017-08-27 06:39] VITALS: BP 121/58
[2017-08-27 07:18] LABS: MEAN CORPUSCULAR HGB CONC 32.8 g/dl (32.0-36.5); MEAN CORPUSCULAR VOLUME 85.4 fl (80.0-96.0); PLATELET COUNT, AUTOMATED 332 10^3/uL (150-450); RED CELL DISTRIBUTION WIDTH 13.6 % (11.5-14.5); WHITE BLOOD COUNT 6.6 10^3/uL (4.0-10.0)
[2017-08-27 07:40] LABS: ANION GAP 8 MEQ/L (8-16); BLOOD UREA NITROGEN 12 MG/DL (7-18); CALCIUM LEVEL 9.7 MG/DL (8.5-10.1); CARBON DIOXIDE LEVEL 30 MEQ/L (21-32); CHLORIDE LEVEL 100 MEQ/L (98-107); CREATININE FOR GFR 0.58 MG/DL (0.55-1.02); GLOMERULAR FILTRATION RATE > 60.0 (>51); GLUCOSE, FASTING 156 MG/DL (70-105); MAGNESIUM LEVEL 2.2 MG/DL (1.8-2.4); POTASSIUM SERUM 4.7 MEQ/L (3.5-5.1); SODIUM LEVEL 138 MEQ/L (136-145)
[2017-08-27] MEDS: ACETAMINOPHEN TAB 650MG DOSE (2X325MG) PO PRN (08:27)
[2017-08-27] MEDS: INSULIN DEGLUDEC SC SCH (08:28)
[2017-08-27] MEDS: GEMFIBROZIL 600 MG TAB PO SCH ×2 (08:28→20:48)
[2017-08-27] MEDS: buPROPion **XL** TABLET 150MG (WELLBUTRIN XL) PO SCH (08:28)
[2017-08-27] MEDS: DULoxetine 30 MG CAP (CYMBALTA) PO SCH (08:28)
[2017-08-27] MEDS: ATENOLOL 50 MG TAB PO SCH (08:28)
[2017-08-27] MEDS: LISINOPRIL *2.5 MG* TAB PO SCH (08:28)
[2017-08-27] MEDS: LACTOBACILLUS ACIDOPHILUS CAP (BACID) PO SCH ×2 (08:28→20:48)
[2017-08-27] MEDS: HYDROXYCHLOROQUINE 200 MG TAB PO SCH ×2 (08:28→20:49)
[2017-08-27] MEDS: APIDRA 100 UNIT/ML SC SCH ×2 (12:15→17:49)
[2017-08-27 14:00] VITALS: BP 108/50
[2017-08-27] MEDS: ANALGESIC BALM CRM 120 GM TOP SCH ×3 (15:00→20:49)
--- NOTE | 2017-08-27 16:58 | IPNPDOC ---
PM&R Progress Note Reconciliation Accountant Progress Note DATE OF SERVICE: 08/27/17 DATE OF ADMISSION: Aug 22, 2017 at 11:37 INPATIENT REHABILITATION ADMISSION DAY: #6 SUBJECTIVE: Patient is a 52-year-old, right-handed, white female who is accepted in transfer from [facility] for rehabilitation of what is felt to be chronic idiopathic demyelinating polyneuropathy (CIDP). Patient who previously has been here in May of 2017 for rehabilitation of the same condition developed an exacerbation about a month or so ago and was admitted to [facility] for further evaluation and treatment on 08/12/2017 as she had become progressively weaker with more numbness, especially in the lower extremities and some recurrent falls. The patient was assessed, including some electrodiagnostic evaluation and is felt to have CIDP along with history of lupus as her underlying source of this progressive weakness. Patient without significant pain except for some stiffness medicine feeling a lump in her superior right posterior neck. ALLERGIES: See Below MEDICATIONS: Reviewed, see below. OBJECTIVE: VITAL SIGNS: Please see below. PHYSICAL EXAMINATION: GENERAL: Overweight short middle-age white female in little to no acute distress however with weakness in bilateral upper and lower extremities. Patient has alert and well oriented and pleasant and cooperative with slight anxiousness. HEENT: Normocephalic/atraumatic. CARDIOVASCULAR: Regular rate and rhythm with normal S1-S2 without S3-S4 murmurs or rubs. 2 out 4 bilateral radial pulses. LUNGS: All holley clear auscultation. ABDOMEN: Obese, nontender with normal bowel sounds in all quadrants. NEUROLOGICAL: Alert and oriented 4. Speech is clear coherent and appropriate. Memory is intact. Patient with 3-4 out of 5 bilateral upper and lower extremities motor and some decrease in light touch and vibration especially in the distal lower extremities. SKIN: Cervical incision on neck is healed. Otherwise skin grossly intact. LABORATORY DATA: Reviewed. Please see below. MICROBIOLOGY: Please see below. IMAGING: No new imaging. DVT prophylaxis ordered?: PAGE gomez. ASSESSMENT AND PLAN: 1. Rehabilitation of CIDP: We are proceed with physical and occupational therapy to work on neuromuscular facilitation of bilateral upper and lower extremity and adaptive ADLs mobility to facilitate patient's return to home. Patient with some progress from mod to max assist, to contact guard to mod assist. Still feeling more limited by decreased foot sensation and some increased foot drop and inversion. I will assess for AFO's tomorrow. 2. Diabetes mellitus type 2: Dr. Estrada has discontinued the metformin and we are still pending patient's bringing in her regular diabetic meds. We will proceed with detemir daily dose and a Humalog sliding scale. We will continue to review before meals and at bedtime blood sugars. 3. Lupus: Will watch for any flare-ups and continue Plaquenil for now. 4. Obstructive sleep apnea: We'll continue with patient's CPAP machine and settings. REHAB. TEAM ROUNDS: Patient reviewed by PT/OT/RN/Case Management/PM&R: Patient starting therapies is very motivated with multiple deficits to work on for her to return to the community. Estimated Date of Discharge is 08/31/17. Please see today's therapy evaluations. TIME SPENT: Chart Review, examination and documentation require greater than 25 minutes. Patient: Eliz House : 1965 Age/Sex: 52/F Unit#: [id number] Room[facility]: [facility]/ User: Rubi nAn OT OT Date: 08/27/17 11:17 Type: OT Progress Time In * 08:40 Time Out * 09:50 OT Treatment Time-Minutes * 70 mins Type of Therapy Provided * Individual Precautions * Fall Unit * Acute Inpatient Rehab Pain Start of Session * 0 Pain End of Session * 0 Pain Comment * No c/o pain. Subjective * Pt supine upon OT arrival, agreeable to tx. Cognition * Within Normal Limits Cognition Comments * WNL; [employer]- pt wears B hearing aides. Supine to Sit * Minimum Assist Sit to Supine * Standby Assist Bed Mobility Notes * Pt performed supine>sit with head of bed elevated with min assist. SBA sitting EOB to supine. Sit to Stand * Minimum Assist Stand to Sit * Contact Guard Assist Bed to Chair * Contact Guard Assist Chair to Bed * Contact Guard Assist Toilet/Commode * Contact Guard Assist Shower/Tub * Minimum Assist Functional Transfer Notes: * Pt performed all functional transfers including sit<>stand x mult trials throughout session to perform ADLs with min assist for safety using RW. Pt able to transfer using RW with close CGA. Pt transferred into tub shower using tub transfer bench. Min assist to edge of transfer bench, then pt able to transfer BLE into/out of shower with SBA. Bathing * Modified Independent Dressing-Upper Body * Independent Dressing-Lower Body * Moderate Assist Grooming * Independent Toileting * Minimum Assist Eating * Independent ADL Training Note * Pt gathered clothing and self-propelled wc into bathroom independently. Pt transferred onto commode with min assist and able to complete clothing management and hygiene with CGA in standing. Pt retunred to w/c and self propelled w/c to training shower room. Pt completed transfer onto tub bench with min assist, then able to transfer into tub with SBA. Pt complete bathing while seated on bench with mod I. Pt donned/doffed shirt and donned bra independently. LB dressing- pt encouraged to take rest breaks throughout ADLs due to increased fatigue. Pt able to thread BLE into underwear and pants with SBA, though requires assist to pull up in standing due to increased fatigue. Pt requires assist to don TEDs, though able to thread B socks using sock aide. Pt then retunred back to w/c and self propelled w/c to room and completed grooming independently at sink. A. Eating (include only those with PO intake): * 06.Independent Eating Comments: * See ADL note. B. Oral Hygiene (includes gums in edentulous pts): * 06.Independent Oral Hygiene Comments: * See ADL note. . C. Toileting Hygiene (not transfers): * 04.Sup/Touch Assist Toileting Hygiene Comments: * See ADL note. E. Shower/Bathe Self (not transfers, can be sponge bath): * 06.Independent Shower/Bathe Self Comments: * See ADL note. F. Upper Body Dressing (includes bra, not hospital gown): * 06.Independent Upper Body Dressing Comments: * See ADL note. G. Lower Body Dressing (includes briefs and knee braces): * 03.Partial/Mod Assist Lower Body Dressing Comments: * See ADL note. H. Putting on/taking off footwear (includes TEDS and AFO): * 03.Partial/Mod Assist Putting on/taking off footwear Comments: * See ADL note. Assist only for TEDs, pt able to don B socks. Sit-Static * G Sit-Dynamic * G Stand-Static * F+ Stand-Dynamic * F+ Balance Training Note * Balance assessed while seated EOB; standing assessed with RW OT Intervention Note * See ADL note above. Pt then transferred w/c to EOB with min assist and retunred to supine with SBA. All needs met, call light in reach. OT Goal Note * Cont with OT plan of care Discharge Recommendations * Home w/services Safe for discharge at this time * No Patient: Eliz House : 1965 Age/Sex: 52/F Unit#: [id number] Room/Bed: [place] [address] User: Rubi Ann OT OT Date: 08/27/17 14:45 Type: OT Progress Time In * 14:20 Time Out * 14:40 OT Treatment Time-Minutes * 20 mins Type of Therapy Provided * Individual Precautions * Fall Unit * Acute Inpatient Rehab Pain Comment * No c/o pain Subjective * Pt supine upon OT arrival, reports she is very fatigued from therapy this date. Cognition * Within Normal Limits Supine to Sit * Minimum Assist Sit to Supine * Minimum Assist Bed Mobility Notes * Min assist supine to sit with HOB elevated. Min assist sit to supine for LLE into bed. Assist to boost to HOB. Bed to Chair * Minimum Assist Chair to Bed * Minimum Assist Functional Transfer Notes: * Pt edu re: slide board for functional transfers to increase independence in case spouse is unavailable to assist (at work.) Pt able to position slide board and slide to w/c with CGA. Pt rested in w/c ~5 minutes due to fatigue, then returned to EOB via slide board. Pt became very fearful during transfer and requesting to assist pt back onto bed. Pt requires min assist to complete transfer back to EOB. OT Intervention Note * See transfer note above. Pt then completed BUE AROM through all shoulder planes x10-15 reps to increase strength and endurance. Pt then reports she is too fatigued to complete further activity. Pt returned to supine with min assist for LLE. All needs met, call light in reach, spouse present throughout tx. Discharge Recommendations * Home w/services Safe for discharge at this time * No Patient: Eliz House : 1965 Age/Sex: 52/F Unit#: [id number] Room/Bed: M4146/01 User: Venecia Wheeler PT PT Date: 08/27/17 13:13 Type: PT Progress Note Time In * 11:01 Time Out * 12:01 PT Treatment Time-Minutes * 60 mins Type of Therapy Provided * Individual Precautions * Fall Unit * Acute Inpatient Rehab Pain Start of Session * 0 Pain End of Session * 0 Pain Comment * No c/o pain. feeling of "stiffness and numbness" Subjective * Pt just waking up on arrival; present. Pt agreeable to AM PT session. Cognition * Within Normal Limits Cognition Comments * WNL; [employer]- pt wears B hearing aides. Supine to Sit * Minimum Assist Bed Mobility Notes * Pt performed supine>sit with head of bed sloghtly elevated with min assist as pt pulled herself up using therapist hand and Min A at L shoulder girdle. Sit to Stand * Minimum Assist Stand to Sit * Contact Guard Assist Bed to Chair * Contact Guard Assist Chair to Bed * Contact Guard Assist Toilet/Commode * Contact Guard Assist Transfer Training Notes * Pt completed multiple sit to stand transfers during session and 2 SPT with RW requiring Min A- CGA for safety. Sit-Static * G Sit-Dynamic * G Stand-Static * F+ Stand-Dynamic * F+ Balance Training Note * Balance assessed while seated EOB; standing assessed with RW; pt maintained standing balance with intermittent UE support and at times without UE support while doffing clothing at toilet. Pt required assistance for donning pants following toileting. Ambulation Distance * 12 Feet Ambulation Level of Assist * Contact Guard Assist Assistive Device Used * Rolling Walker * Gait Belt Other Assistive Device Used * 12' and 11' this session with RW and wc follow Gait Training Note * Pt demonstrates B ankle inversion and foot drop; trialed use of AFO; however gutierrez snot fit in current shoe; will trial again when brings in lace up sneakers. Wheelchair Distance * 150 feet Wheelchair Mobility Level of Assist * Modified Independent Wheelchair Mobility Comment * (I) propels self in tight spaces (ie: bathroom/ room) Level of Assist for Stairs * Not Tested A. Roll Left and Right: * 88.Not Attempted B. Sit to Lying: * 88.Not Attempted C. Lying to Sitting on Side of Bed: * 03.Partial/Mod Assist D. Sit to Stand: * 03.Partial/Mod Assist E. Chair/Oda-bn-Mrmmm Transfer: * 04.Sup/Touch Assist F. Toilet Transfer: * 04.Sup/Touch Assist G. Car Transfer: * 88.Not Attempted H. Does the patient walk?: * 2. Yes I. Walk 10 Feet: * 04.Sup/Touch Assist J. Walk 50' with Two Turns: * 88.Not Attempted K. Walk 150 Feet: * 88.Not Attempted L. Walking 10' on uneven surfaces: * 88.Not Attempted M. 1 Step (curb): * 88.Not Attempted N. 4 Steps (with or without railing): * 88.Not Attempted O. 12 Steps (with or without railing): * 88.Not Attempted P. Picking up Object from the Floor (from a standing): * 88.Not Attempted Q. Does the patient use a w/c (other than just transport): * 1. Yes R. Wheel 50' with 2 Turns(seated in w/c): * 06.Independent S. Wheel 150' (seated in w/c): * 06.Independent SS. What type of w/c?: * 1. Manual Lower Extremity Exercised * Bilateral Sitting Exercises * Long Arc Quads Number of Reps Sitting * 10-15 Reps Therapeutic Exercises Note * completes without adverse effects; focused on mobility PT Interventions * Gait Training * Therapeutic Excercise * Functional Training * Bed Mobility * Balance Activities * Safety/Precautions * HEP * Pt./Family Education * D/C Needs PT Progress Note * Pt limited this session secondary to pain in R knee; pt tender to touch at MCL and medial joint line/ medial meniscus region. Applied cold pack following session. Dr. Hedrick made aware. PT Goal Note * will focus on SPT to maximize (I) at wc level. Discharge Recommendations * Home w/services Safe for discharge at this time * No Patient: Eliz House : 1965 Age/Sex: 52/F Unit#: [id number] Room/Bed: M4146/01 User: Venecia Wheeler PT PT Date: 08/27/17 14:01 Type: PT Progress Note Time In * 13:30 Time Out * 14:00 PT Treatment Time-Minutes * 30 mins Type of Therapy Provided * Individual Precautions * Fall Unit * Acute Inpatient Rehab Pain Start of Session * 0 Pain End of Session * 0 Pain Comment * denies pain Subjective * Pt seated in wc and agreeable to PT session. Cognition * Within Normal Limits Cognition Comments * WNL; [employer]- pt wears B hearing aides. Supine to Sit * Not Tested Sit to Supine * Contact Guard Assist Rolling * Not Tested Bed Mobility Notes * CGA for sit to supine to support B LEs; pt informed this marketing copywriter she is able to get into bed without assist when using bedrail. Sit to Stand * Contact Guard Assist Stand to Sit * Contact Guard Assist Bed to Chair * Contact Guard Assist Chair to Bed * Contact Guard Assist Toilet/Commode * Contact Guard Assist Transfer Training Notes * Pt completed sit to stand and SPT transfers x6 with CGA x1 Sit-Static * G Sit-Dynamic * G Stand-Static * F+ Stand-Dynamic * F+ Balance Training Note * sitting EOB; standing with RW Ambulation Level of Assist * Not Tested Assistive Device Used * Rolling Walker * Gait Belt Other Assistive Device Used * focused on SPT Wheelchair Mobility Level of Assist * Not Tested Level of Assist for Stairs * Not Tested A. Roll Left and Right: * 06.Independent B. Sit to Lying: * 04.Sup/Touch Assist C. Lying to Sitting on Side of Bed: * 03.Partial/Mod Assist D. Sit to Stand: * 04.Sup/Touch Assist E. Chair/Lzq-ut-Wugov Transfer: * 04.Sup/Touch Assist F. Toilet Transfer: * 88.Not Attempted G. Car Transfer: * 88.Not Attempted H. Does the patient walk?: * 2. Yes I. Walk 10 Feet: * 04.Sup/Touch Assist J. Walk 50' with Two Turns: * 88.Not Attempted K. Walk 150 Feet: * 88.Not Attempted L. Walking 10' on uneven surfaces: * 88.Not Attempted M. 1 Step (curb): * 88.Not Attempted N. 4 Steps (with or without railing): * 88.Not Attempted O. 12 Steps (with or without railing): * 88.Not Attempted P. Picking up Object from the Floor (from a standing): * 88.Not Attempted Q. Does the patient use a w/c (other than just transport): * 1. Yes R. Wheel 50' with 2 Turns(seated in w/c): * 06.Independent S. Wheel 150' (seated in w/c): * 06.Independent SS. What type of w/c?: * 1. Manual Lower Extremity Exercised * Bilateral Other Supine Exercises * clam shells x15 Mike Sitting Exercises * Long Arc Quads Therapeutic Exercises Note * focus on transfer training PT Interventions * Gait Training * Therapeutic Excercise * Functional Training * Bed Mobility * Balance Activities * Safety/Precautions * HEP * Pt./Family Education * D/C Needs PT Progress Note * Pt demonstrates good progress this session with multiple STS and SPT wc <> bed with CGA throughout with RW. Added brake personal banking officer to allow pt to lock L brake on wc (I). Leg rests applied in morning session for optimal seated positioning when in wc. Pt left lying in bed with call schultz in reach and all needs met. PT Goal Note * will focus on SPT to maximize (I) at wc level. Discharge Recommendations * Home w/services Safe for discharge at this time * No Allergies Coded Allergies: Cephalexin (Verified Allergy, Unknown, 05/03/17) Vital Signs Vital Signs Date Time Temp Pulse Resp B/P (MAP) Pulse Ox O2 Delivery O2 Flow Rate FiO2 08/27/17 14:00 99.7 92 18 108/50 (69) 97 Room Air Laboratory Data CBC/BMP Laboratory Tests 08/27/17 06:57 Red Blood Count 4.46, Mean Corpuscular Volume 85.4, Mean Corpuscular Hemoglobin 28.0, Mean Corpuscular Hemoglobin Concent 32.8, Red Cell Distribution Width 13.6 , Calcium Level 9.7 Labs 24H Laboratory Tests 2 08/26/17 20:51: Bedside Glucose (Misc Panel) 169H 08/27/17 06:57: Nucleated Red Blood Cells % (auto) 0.0, Anion Gap 8, Glomerular Filtration Rate > 60.0, Blood Urea Nitrogen 12, Creatinine 0.58, Sodium Level 138, Potassium Level 4.7, Chloride Level 100, Carbon Dioxide Level 30, Calcium Level 9.7, Magnesium Level 2.2 08/27/17 07:02: Bedside Glucose (Misc Panel) 184H 08/27/17 11:50: Bedside Glucose (Misc Panel) 143H Current Medications Current Medications Current Medications Acetaminophen (Tylenol Tab) 650 mg Q4HP PRN PO MILD PAIN (PS 1-4) Last administered on 08/27/17 08:27; Start 08/22/17 at 12:00; Stop 09/21/17 at 11:59 Atenolol (Tenormin) 50 mg DAILY PO Last administered on 08/27/17 08:28; Start 08/22/17 at 09:00; Stop 09/21/17 at 08:59 Bupropion HCl (Wellbutrin Xl) 300 mg QAM PO Last administered on 08/27/17 08: 28; Start 08/22/17 at 09:00; Stop 09/21/17 at 08:59 Dextrose (Dextrose 50%) 25 ml ASDIRECTED PRN IV SEE LABEL COMMENTS; Start 08/22 at 12:00; Stop 09/21/17 at 11:59 Duloxetine HCl (Cymbalta) 30 mg DAILY PO Last administered on 08/27/17 08:28 ; Start 08/22/17 at 09:00; Stop 09/21/17 at 08:59 Gemfibrozil (Lopid) 600 mg BID PO Last administered on 08/27/17 08:28; Start 08/22/17 at 21:00; Stop 09/21/17 at 20:59 Glimepiride (Amaryl) 4 mg DAILY@0730 PO ; Start 08/22/17 at 07:30; Stop at 01:37; Status DC Glucagon (Glucagon) 1 mg ASDIRECTED PRN SC SEE LABEL COMMENTS; Start 08/22/17 at 12:00; Stop 09/21/17 at 11:59 Glucose (Glucose) 16 GM ASDIRECTED PRN PO SEE LABEL COMMENTS; Start 08/22/17 at 12:00; Stop 09/21/17 at 11:59 Home Med (Med Rec Complete!) ASDIRECTED XX ; Start 08/22/17 at 14:30; Stop 08/22/17 at 14:32; Status DC Hydroxychloroquine Sulfate (Plaquenil) 200 mg BID PO Last administered on 08/27 08:28; Start 08/22/17 at 21:00; Stop 09/21/17 at 20:59 Insulin Detemir (Levemir Insulin) 20 units QAM SC Last administered on 08:00; Start 08/22/17 at 09:00; Stop 08/23/17 at 18:54; Status DC Insulin Human Lispro (HumaLOG INSULIN) SEE PROTOCOL TABLE QHS SC ; Start at 21:00; Stop 08/24/17 at 09:36; Status DC Insulin Human Lispro (HumaLOG INSULIN) See Protocol Table AC SC ; Start at 12:00; Stop 08/25/17 at 13:25; Status DC Insulin Human Lispro (HumaLOG INSULIN) See Protocol Table BID@1200,1730 SC Last administered on 08/25/17 17:13; Start 08/25/17 at 12:00; Stop 08/26/17 at 10:50; Status DC Insulin Human Lispro (HumaLOG INSULIN) See Protocol Table QHS SC ; Start at 21:00; Stop 08/26/17 at 10:50; Status DC Insulin Human Lispro (HumaLOG INSULIN) See Protocol Table ... AC SC Last administered on 08/23/17 17:24; Start 08/22/17 at 17:30; Stop 08/24/17 at 09:36 ; Status DC Lactobacillus Acidophilus (Bacid) 1 ea BID PO Last administered on 08/27/17 08:28; Start 08/22/17 at 21:00; Stop 09/21/17 at 20:59 Lisinopril (Prinivil) 2.5 mg DAILY PO Last administered on 08/27/17 08:28; Start 08/22/17 at 09:00; Stop 09/21/17 at 08:59 Menthol/Methyl Salicylate (Bengay Cream) Bilateral knees for arthritis QID TOP Last administered on 08/27/17 15:00; Start 08/27/17 at 13:00; Stop 08/31/17 at 23:55 Metformin HCl (Glucophage) 1,000 mg BID@08,18 PO Last administered on 17:26; Start 08/22/17 at 18:00; Stop 08/23/17 at 01:37; Status DC Miscellaneous (Unresolved Patient Own Med Order) SEE LABEL COMMENTS UNRESOLVED XX ; Start 08/22/17 at 00:01; Stop 08/23/17 at 18:50; Status DC Non-Formulary Medication Patient to take own Alfonso... DAILY SC ; Start 08/23/17 at 09:00; Stop 08/23/17 at 18:55; Status DC Patient Own Medication (Patient'S Own Med) 20 ea AC@1200,1730 SC Last administered on 08/27/17 12:15; Start 08/22/17 at 12:00; Stop 09/21/17 at 11:59 ; Status Future hold Patient Own Medication (Patient'S Own Med) APIDRA SOLOSTAR:Patient to take her ... AC SC ; Start 08/24/17 at 07:30; Stop 09/23/17 at 07:29; Status Cancel Patient Own Medication (Patient'S Own Med) Bydureon 2 mg SQ once weekly... Medina@ 0900 SQ Last administered on 08/26/17 14:12; Start 08/26/17 at 12:00; Stop 09/25/17 at 11:59 Patient Own Medication (Patient'S Own Med) PEN NEEDLES ASDIRECTED XX Last administered on 08/24/17 16:58; Start 08/23/17 at 19:15; Stop 09/22/17 at 19:14 Patient Own Medication (Patient'S Own Med) Tresiba U100 FLEX PRIYA... DAILY SC Last administered on 08/27/17 08:28; Start 08/24/17 at 09:00; Stop 09/23/17 at 08:59 Pravastatin Sodium (Pravachol) 20 mg QPM PO Last administered on 08/26/17 20: 58; Start 08/22/17 at 21:00; Stop 09/21/17 at 20:59 REBEKA HEDRICK MD Aug 27, 2017 16:58
[2017-08-27] MEDS: [UNRECOGNIZED DRUG - OTHER] XX SCH (17:49)
[2017-08-27 20:00] VITALS: BP 119/58
[2017-08-27] MEDS: PRAVASTATIN 20 MG TAB PO SCH (20:49)
[2017-08-28 06:00] VITALS: BP 112/57
[2017-08-28] MEDS: INSULIN DEGLUDEC SC SCH (08:48)
[2017-08-28] MEDS: LISINOPRIL *2.5 MG* TAB PO SCH (08:49)
[2017-08-28] MEDS: LACTOBACILLUS ACIDOPHILUS CAP (BACID) PO SCH ×2 (08:49→20:15)
[2017-08-28] MEDS: buPROPion **XL** TABLET 150MG (WELLBUTRIN XL) PO SCH (08:49)
[2017-08-28] MEDS: HYDROXYCHLOROQUINE 200 MG TAB PO SCH ×2 (08:49→20:15)
[2017-08-28] MEDS: DULoxetine 30 MG CAP (CYMBALTA) PO SCH (08:49)
[2017-08-28] MEDS: GEMFIBROZIL 600 MG TAB PO SCH ×2 (08:49→20:15)
[2017-08-28] MEDS: ANALGESIC BALM CRM 120 GM TOP SCH ×4 (08:53→20:16)
[2017-08-28] MEDS: ATENOLOL 50 MG TAB PO SCH (08:53)
[2017-08-28] MEDS: APIDRA 100 UNIT/ML SC SCH ×2 (12:15→18:11)
[2017-08-28] MEDS: [UNRECOGNIZED DRUG - OTHER] XX SCH ×2 (12:16→18:12)
[2017-08-28] MEDS ORDERED: traMADol 50 MG TAB PO ONE (12:30)
[2017-08-28 14:00] VITALS: BP 99/51
--- NOTE | 2017-08-28 14:43 | IPNPDOC ---
PM&R Progress Note [employer] Process Technician Progress Note DATE OF SERVICE: 08/28/17 DATE OF ADMISSION: Aug 22, 2017 at 11:37 INPATIENT REHABILITATION ADMISSION DAY: #7 SUBJECTIVE: Patient is a 52-year-old, right-handed, white female who is accepted in transfer from [facility] for rehabilitation of what is felt to be chronic idiopathic demyelinating polyneuropathy (CIDP). Patient who previously has been here in May of 2017 for rehabilitation of the same condition developed an exacerbation about a month or so ago and was admitted to [facility] for further evaluation and treatment on 08/12/2017 as she had become progressively weaker with more numbness, especially in the lower extremities and some recurrent falls. The patient was assessed, including some electrodiagnostic evaluation and is felt to have CIDP along with history of lupus as her underlying source of this progressive weakness. Patient with significant pain in her right knee today. She would like to go home, but decided with her to stay. They report having an appointment with Neurology at the [facility] in [place], [place] on Monday 09/03 and wish D/C on to allow time to drive there. ALLERGIES: See Below MEDICATIONS: Reviewed, see below. OBJECTIVE: VITAL SIGNS: Please see below. PHYSICAL EXAMINATION: GENERAL: Overweight short middle-age white female in little to no acute distress however with weakness in bilateral upper and lower extremities. Patient has alert and well oriented and pleasant and cooperative with slight anxiousness. HEENT: Normocephalic/atraumatic. CARDIOVASCULAR: Regular rate and rhythm with normal S1-S2 without S3-S4 murmurs or rubs. 2 out 4 bilateral radial pulses. LUNGS: All holley clear auscultation. ABDOMEN: Obese, nontender with normal bowel sounds in all quadrants. NEUROLOGICAL: Alert and oriented 4. Speech is clear coherent and appropriate. Memory is intact. Patient with 3-4 out of 5 bilateral upper and lower extremities motor and some decrease in light touch and vibration especially in the distal lower extremities. SKIN: Cervical incision on neck is healed. Otherwise skin grossly intact. RIGHT KNEE: Patient with tenderness along the medial tibial flare and MCL insertion and along the medial joint line without heat or edema. LABORATORY DATA: Reviewed. Please see below. MICROBIOLOGY: Please see below. IMAGING: No new imaging. DVT prophylaxis ordered?: PGAE gomez. ASSESSMENT AND PLAN: 1. Rehabilitation of CIDP: We are proceed with physical and occupational therapy to work on neuromuscular facilitation of bilateral upper and lower extremity and adaptive ADLs mobility to facilitate patient's return to home. Patient with some progress from mod to max assist, to contact guard to mod assist. Still feeling more limited by decreased foot sensation and some increased foot drop and inversion. Patient with improved stability and gaiting in PT in the parallel bars, clearing the foot droop and supination with the AFO' s on. Patient to continue with these until custom fit ones can be obtained. Due to [facility] appointment, we will plan to discharge patient on 08/30/17 with family. 2. Diabetes mellitus type 2: Dr. Estrada has discontinued the metformin and we are still pending patient's bringing in her regular diabetic meds. We will proceed with detemir daily dose and a Humalog sliding scale. We will continue to review before meals and at bedtime blood sugars and these are doing well. 3. Lupus: Will watch for any flare-ups and continue Plaquenil for now, overall this has been stable. 4. Obstructive sleep apnea: We'll continue with patient's CPAP machine and settings. TIME SPENT: Chart Review, examination and documentation require greater than 25 minutes. Allergies Coded Allergies: Cephalexin (Verified Allergy, Unknown, 05/03/17) Vital Signs Vital Signs Date Time Temp Pulse Resp B/P (MAP) Pulse Ox O2 Delivery O2 Flow Rate FiO2 08/28/17 12:55 16 08/28/17 09:00 Room Air 08/28/17 08:53 104 112/57 08/28/17 06:00 97.8 97 Laboratory Data Labs 24H Laboratory Tests 2 08/27/17 17:00: Bedside Glucose (Misc Panel) 124H 08/27/17 20:48: Bedside Glucose (Misc Panel) 131H 08/28/17 06:08: Bedside Glucose (Misc Panel) 144H 08/28/17 11:56: Bedside Glucose (Misc Panel) 224H Current Medications Current Medications Current Medications Acetaminophen (Tylenol Tab) 650 mg Q4HP PRN PO MILD PAIN (PS 1-4) Last administered on 08/27/17 08:27; Start 08/22/17 at 12:00; Stop 09/21/17 at 11:59 Atenolol (Tenormin) 50 mg DAILY PO Last administered on 08/28/17 08:53; Start 08/22/17 at 09:00; Stop 09/21/17 at 08:59 Bupropion HCl (Wellbutrin Xl) 300 mg QAM PO Last administered on 08/28/17 08: 49; Start 08/22/17 at 09:00; Stop 09/21/17 at 08:59 Dextrose (Dextrose 50%) 25 ml ASDIRECTED PRN IV SEE LABEL COMMENTS; Start 08/22 at 12:00; Stop 09/21/17 at 11:59 Duloxetine HCl (Cymbalta) 30 mg DAILY PO Last administered on 08/28/17 08:49 ; Start 08/22/17 at 09:00; Stop 09/21/17 at 08:59 Gemfibrozil (Lopid) 600 mg BID PO Last administered on 08/28/17 08:49; Start 08/22/17 at 21:00; Stop 09/21/17 at 20:59 Glimepiride (Amaryl) 4 mg DAILY@0730 PO ; Start 08/22/17 at 07:30; Stop at 01:37; Status DC Glucagon (Glucagon) 1 mg ASDIRECTED PRN SC SEE LABEL COMMENTS; Start 08/22/17 at 12:00; Stop 09/21/17 at 11:59 Glucose (Glucose) 16 GM ASDIRECTED PRN PO SEE LABEL COMMENTS; Start 08/22/17 at 12:00; Stop 09/21/17 at 11:59 Home Med (Med Rec Complete!) ASDIRECTED XX ; Start 08/22/17 at 14:30; Stop 08/22/17 at 14:32; Status DC Hydroxychloroquine Sulfate (Plaquenil) 200 mg BID PO Last administered on 08/28 08:49; Start 08/22/17 at 21:00; Stop 09/21/17 at 20:59 Insulin Detemir (Levemir Insulin) 20 units QAM SC Last administered on 08:00; Start 08/22/17 at 09:00; Stop 08/23/17 at 18:54; Status DC Insulin Human Lispro (HumaLOG INSULIN) SEE PROTOCOL TABLE QHS SC ; Start at 21:00; Stop 08/24/17 at 09:36; Status DC Insulin Human Lispro (HumaLOG INSULIN) See Protocol Table AC SC ; Start at 12:00; Stop 08/25/17 at 13:25; Status DC Insulin Human Lispro (HumaLOG INSULIN) See Protocol Table BID@1200,1730 SC Last administered on 08/25/17 17:13; Start 08/25/17 at 12:00; Stop 08/26/17 at 10:50; Status DC Insulin Human Lispro (HumaLOG INSULIN) See Protocol Table QHS SC ; Start at 21:00; Stop 08/26/17 at 10:50; Status DC Insulin Human Lispro (HumaLOG INSULIN) See Protocol Table ... AC SC Last administered on 08/23/17 17:24; Start 08/22/17 at 17:30; Stop 08/24/17 at 09:36 ; Status DC Lactobacillus Acidophilus (Bacid) 1 ea BID PO Last administered on 08/28/17 08:49; Start 08/22/17 at 21:00; Stop 09/21/17 at 20:59 Lisinopril (Prinivil) 2.5 mg DAILY PO Last administered on 08/28/17 08:49; Start 08/22/17 at 09:00; Stop 09/21/17 at 08:59 Menthol/Methyl Salicylate (Bengay Cream) Bilateral knees for arthritis QID TOP Last administered on 08/28/17 12:56; Start 08/27/17 at 13:00; Stop 08/31/17 at 23:55 Metformin HCl (Glucophage) 1,000 mg BID@08,18 PO Last administered on 17:26; Start 08/22/17 at 18:00; Stop 08/23/17 at 01:37; Status DC Miscellaneous (Unresolved Patient Own Med Order) SEE LABEL COMMENTS UNRESOLVED XX ; Start 08/22/17 at 00:01; Stop 08/23/17 at 18:50; Status DC Non-Formulary Medication Patient to take own Alfonso... DAILY SC ; Start 08/23/17 at 09:00; Stop 08/23/17 at 18:55; Status DC Patient Own Medication (Patient'S Own Med) 20 ea AC@1200,1730 SC Last administered on 08/28/17 12:15; Start 08/22/17 at 12:00; Stop 09/21/17 at 11:59 ; Status Future hold Patient Own Medication (Patient'S Own Med) NAMRamon MARTELLYURIJOSUE:Patient to take her ... AC SC ; Start 08/24/17 at 07:30; Stop 09/23/17 at 07:29; Status Cancel Patient Own Medication (Patient'S Own Med) Bydureon 2 mg SQ once weekly... Medina@ 0900 SQ Last administered on 08/26/17 14:12; Start 08/26/17 at 12:00; Stop 09/25/17 at 11:59 Patient Own Medication (Patient'S Own Med) PEN NEEDLES ASDIRECTED XX Last administered on 08/28/17 12:16; Start 08/23/17 at 19:15; Stop 09/22/17 at 19:14 Patient Own Medication (Patient'S Own Med) Tresiba U100 FLEX PRIYA... DAILY SC Last administered on 08/28/17 08:48; Start 08/24/17 at 09:00; Stop 09/23/17 at 08:59 Pravastatin Sodium (Pravachol) 20 mg QPM PO Last administered on 08/27/17 20: 49; Start 08/22/17 at 21:00; Stop 09/21/17 at 20:59 Tramadol HCl (Ultram) 50 mg Q6HP PRN PO MODERATE PAIN (PS 5-7); Start at 12:30; Stop 09/04/17 at 12:29 REBEKA HEDRICK MD Aug 28, 2017 14:43
[2017-08-28 20:00] VITALS: BP 114/64
[2017-08-28] MEDS: PRAVASTATIN 20 MG TAB PO SCH (20:15)
[2017-08-29] MEDS: traMADol 50 MG TAB PO PRN ×2 (03:36→11:56)
[2017-08-29 06:00] VITALS: BP 127/57
[2017-08-29] MEDS: LISINOPRIL *2.5 MG* TAB PO SCH (08:22)
[2017-08-29] MEDS: LACTOBACILLUS ACIDOPHILUS CAP (BACID) PO SCH ×2 (08:22→20:51)
[2017-08-29] MEDS: INSULIN DEGLUDEC SC SCH (08:22)
[2017-08-29] MEDS: buPROPion **XL** TABLET 150MG (WELLBUTRIN XL) PO SCH (08:22)
[2017-08-29] MEDS: DULoxetine 30 MG CAP (CYMBALTA) PO SCH (08:22)
[2017-08-29] MEDS: ANALGESIC BALM CRM 120 GM TOP SCH ×4 (08:23→20:51)
[2017-08-29] MEDS: GEMFIBROZIL 600 MG TAB PO SCH ×2 (08:23→20:51)
[2017-08-29] MEDS: HYDROXYCHLOROQUINE 200 MG TAB PO SCH ×2 (08:23→20:51)
[2017-08-29] MEDS: ATENOLOL 50 MG TAB PO SCH (08:23)
[2017-08-29] MEDS: APIDRA 100 UNIT/ML SC SCH ×2 (11:57→17:03)
[2017-08-29 14:00] VITALS: BP 119/58
[2017-08-29] MEDS ORDERED: TRAM50TA2 PO (14:44)
--- NOTE | 2017-08-29 15:01 | IPNPDOC ---
PM&R Progress Note Model Photographers' Progress Note DATE OF SERVICE: 08/29/17 DATE OF ADMISSION: Aug 22, 2017 at 11:37 INPATIENT REHABILITATION ADMISSION DAY: #8 SUBJECTIVE: Patient is a 52-year-old, right-handed, white female who is accepted in transfer from [facility] for rehabilitation of what is felt to be chronic idiopathic demyelinating polyneuropathy (CIDP). Patient who previously has been here in May of 2017 for rehabilitation of the same condition developed an exacerbation about a month or so ago and was admitted to [facility] for further evaluation and treatment on 08/12/2017 as she had become progressively weaker with more numbness, especially in the lower extremities and some recurrent falls. The patient was assessed, including some electrodiagnostic evaluation and is felt to have CIDP along with history of lupus as her underlying source of this progressive weakness. Patient with significant pain in her right knee today. She would like to go home, but decided with her to stay. They report having an appointment with Neurology at the [facility] in [place], [place] on Monday 09/03 and wish D/C on to allow time to drive there. ALLERGIES: See Below MEDICATIONS: Reviewed, see below. OBJECTIVE: VITAL SIGNS: Please see below. PHYSICAL EXAMINATION: GENERAL: Overweight short middle-age white female in little to no acute distress however with weakness in bilateral upper and lower extremities. Patient has alert and well oriented and pleasant and cooperative with slight anxiousness. HEENT: Normocephalic/atraumatic. CARDIOVASCULAR: Regular rate and rhythm with normal S1-S2 without S3-S4 murmurs or rubs. 2 out 4 bilateral radial pulses. LUNGS: All holley clear auscultation. ABDOMEN: Obese, nontender with normal bowel sounds in all quadrants. NEUROLOGICAL: Alert and oriented 4. Speech is clear coherent and appropriate. Memory is intact. Patient with 3-4 out of 5 bilateral upper and lower extremities motor and some decrease in light touch and vibration especially in the distal lower extremities. SKIN: Cervical incision on neck is healed. Otherwise skin grossly intact. RIGHT KNEE: Patient with tenderness along the medial tibial flare and MCL insertion and along the medial joint line without heat or edema. LABORATORY DATA: Reviewed. Please see below. MICROBIOLOGY: Please see below. IMAGING: No new imaging. DVT prophylaxis ordered?: PAGE gomez. ASSESSMENT AND PLAN: 1. Rehabilitation of CIDP: We are proceed with physical and occupational therapy to work on neuromuscular facilitation of bilateral upper and lower extremity and adaptive ADLs mobility to facilitate patient's return to home. Patient with some progress from mod to max assist, to contact guard to mod assist. Still feeling more limited by decreased foot sensation and some increased foot drop and inversion. Patient with improved stability and gaiting in PT in the parallel bars, clearing the foot droop and supination with the AFO' s on. Patient to continue with these until custom fit ones can be obtained. Due to [facility] appointment, we will plan to discharge patient on 08/30/17 with family. Manual W/C and sliding board Rx's written and F/U being arranged. 2. Diabetes mellitus type 2: Dr. Estrada has discontinued the metformin and we are still pending patient's bringing in her regular diabetic meds. We will proceed with detemir daily dose and a Humalog sliding scale. We will continue to review before meals and at bedtime blood sugars and these are doing well. 3. Lupus: Will watch for any flare-ups and continue Plaquenil for now, overall this has been stable. 4. Obstructive sleep apnea: We'll continue with patient's CPAP machine and settings. TIME SPENT: Chart Review, examination and documentation require greater than 25 minutes. Allergies Coded Allergies: Cephalexin (Verified Allergy, Unknown, 05/03/17) Vital Signs Vital Signs Date Time Temp Pulse Resp B/P (MAP) Pulse Ox O2 Delivery O2 Flow Rate FiO2 08/29/17 14:00 97.9 94 18 119/58 (78) 99 Room Air Laboratory Data Labs 24H Laboratory Tests 2 08/28/17 16:46: Bedside Glucose (Misc Panel) 140H 08/28/17 20:44: Bedside Glucose (Misc Panel) 136H 08/29/17 06:53: Bedside Glucose (Misc Panel) 144H 08/29/17 11:55: Bedside Glucose (Misc Panel) 131H Current Medications Current Medications Current Medications Acetaminophen (Tylenol Tab) 650 mg Q4HP PRN PO MILD PAIN (PS 1-4) Last administered on 08/27/17 08:27; Start 08/22/17 at 12:00; Stop 09/21/17 at 11:59 Atenolol (Tenormin) 50 mg DAILY PO Last administered on 08/29/17 08:23; Start 08/22/17 at 09:00; Stop 09/21/17 at 08:59 Bupropion HCl (Wellbutrin Xl) 300 mg QAM PO Last administered on 08/29/17 08: 22; Start 08/22/17 at 09:00; Stop 09/21/17 at 08:59 Dextrose (Dextrose 50%) 25 ml ASDIRECTED PRN IV SEE LABEL COMMENTS; Start 08/22 at 12:00; Stop 09/21/17 at 11:59 Duloxetine HCl (Cymbalta) 30 mg DAILY PO Last administered on 08/29/17 08:22 ; Start 08/22/17 at 09:00; Stop 09/21/17 at 08:59 Gemfibrozil (Lopid) 600 mg BID PO Last administered on 08/29/17 08:23; Start 08/22/17 at 21:00; Stop 09/21/17 at 20:59 Glimepiride (Amaryl) 4 mg DAILY@0730 PO ; Start 08/22/17 at 07:30; Stop at 01:37; Status DC Glucagon (Glucagon) 1 mg ASDIRECTED PRN SC SEE LABEL COMMENTS; Start 08/22/17 at 12:00; Stop 09/21/17 at 11:59 Glucose (Glucose) 16 GM ASDIRECTED PRN PO SEE LABEL COMMENTS; Start 08/22/17 at 12:00; Stop 09/21/17 at 11:59 Home Med (Med Rec Complete!) ASDIRECTED XX ; Start 08/22/17 at 14:30; Stop 08/22/17 at 14:32; Status DC Hydroxychloroquine Sulfate (Plaquenil) 200 mg BID PO Last administered on 08/29 08:23; Start 08/22/17 at 21:00; Stop 09/21/17 at 20:59 Insulin Detemir (Levemir Insulin) 20 units QAM SC Last administered on 08:00; Start 08/22/17 at 09:00; Stop 08/23/17 at 18:54; Status DC Insulin Human Lispro (HumaLOG INSULIN) SEE PROTOCOL TABLE QHS SC ; Start at 21:00; Stop 08/24/17 at 09:36; Status DC Insulin Human Lispro (HumaLOG INSULIN) See Protocol Table AC SC ; Start at 12:00; Stop 08/25/17 at 13:25; Status DC Insulin Human Lispro (HumaLOG INSULIN) See Protocol Table BID@1200,1730 SC Last administered on 08/25/17 17:13; Start 08/25/17 at 12:00; Stop 08/26/17 at 10:50; Status DC Insulin Human Lispro (HumaLOG INSULIN) See Protocol Table QHS SC ; Start at 21:00; Stop 08/26/17 at 10:50; Status DC Insulin Human Lispro (HumaLOG INSULIN) See Protocol Table ... AC SC Last administered on 08/23/17 17:24; Start 08/22/17 at 17:30; Stop 08/24/17 at 09:36 ; Status DC Lactobacillus Acidophilus (Bacid) 1 ea BID PO Last administered on 08/29/17 08:22; Start 08/22/17 at 21:00; Stop 09/21/17 at 20:59 Lisinopril (Prinivil) 2.5 mg DAILY PO Last administered on 08/29/17 08:22; Start 08/22/17 at 09:00; Stop 09/21/17 at 08:59 Menthol/Methyl Salicylate (Bengay Cream) Bilateral knees for arthritis QID TOP Last administered on 08/29/17 11:57; Start 08/27/17 at 13:00; Stop 08/31/17 at 23:55 Metformin HCl (Glucophage) 1,000 mg BID@08,18 PO Last administered on 17:26; Start 08/22/17 at 18:00; Stop 08/23/17 at 01:37; Status DC Miscellaneous (Unresolved Patient Own Med Order) SEE LABEL COMMENTS UNRESOLVED XX ; Start 08/22/17 at 00:01; Stop 08/23/17 at 18:50; Status DC Non-Formulary Medication Patient to take own Alfonso... DAILY SC ; Start 08/23/17 at 09:00; Stop 08/23/17 at 18:55; Status DC Patient Own Medication (Patient'S Own Med) 20 ea AC@1200,1730 SC Last administered on 08/29/17 11:57; Start 08/22/17 at 12:00; Stop 09/21/17 at 11:59 ; Status Future hold Patient Own Medication (Patient'S Own Med) JARamon MARTELLSHAI:Patient to take her ... AC SC ; Start 08/24/17 at 07:30; Stop 09/23/17 at 07:29; Status Cancel Patient Own Medication (Patient'S Own Med) Bydureon 2 mg SQ once weekly... Medina@ 0900 SQ Last administered on 08/26/17 14:12; Start 08/26/17 at 12:00; Stop 09/25/17 at 11:59 Patient Own Medication (Patient'S Own Med) PEN NEEDLES ASDIRECTED XX Last administered on 08/28/17 18:12; Start 08/23/17 at 19:15; Stop 09/22/17 at 19:14 Patient Own Medication (Patient'S Own Med) Tresiba U100 FLEX PRIYA... DAILY SC Last administered on 08/29/17 08:22; Start 08/24/17 at 09:00; Stop 09/23/17 at 08:59 Pravastatin Sodium (Pravachol) 20 mg QPM PO Last administered on 08/28/17 20: 15; Start 08/22/17 at 21:00; Stop 09/21/17 at 20:59 Tramadol HCl (Ultram) 50 mg Q6HP PRN PO MODERATE PAIN (PS 5-7) Last administered on 08/29/17 11:56; Start 08/28/17 at 12:30; Stop 09/04/17 at 12 :29 REBEKA HEDRICK MD Aug 29, 2017 15:01
[2017-08-29 20:30] VITALS: BP 124/58
[2017-08-29] MEDS: PRAVASTATIN 20 MG TAB PO SCH (20:51)
[2017-08-30 06:09] VITALS: BP 154/88
[2017-08-30] MEDS: INSULIN DEGLUDEC SC SCH (08:33)
[2017-08-30 08:34] VITALS: BP 154/88
[2017-08-30] MEDS: buPROPion **XL** TABLET 150MG (WELLBUTRIN XL) PO SCH (08:34)
[2017-08-30] MEDS: LACTOBACILLUS ACIDOPHILUS CAP (BACID) PO SCH (08:34)
[2017-08-30] MEDS: ATENOLOL 50 MG TAB PO SCH (08:34)
[2017-08-30] MEDS: LISINOPRIL *2.5 MG* TAB PO SCH (08:34)
[2017-08-30] MEDS: HYDROXYCHLOROQUINE 200 MG TAB PO SCH (08:35)
[2017-08-30] MEDS: ANALGESIC BALM CRM 120 GM TOP SCH (08:35)
[2017-08-30] MEDS: GEMFIBROZIL 600 MG TAB PO SCH (08:35)
[2017-08-30] MEDS: DULoxetine 30 MG CAP (CYMBALTA) PO SCH (08:35)
--- NOTE | 2017-08-30 13:56 | PMRDS ---
DATE OF ADMISSION: 08/22/2017 DATE OF DISCHARGE: 08/30/2017 DISCHARGE DIAGNOSES: Rehabilitation of quadriparesis secondary to chronic idiopathic demyelinating polyneuropathy. HISTORY: Patient is a right handed 52-year-old white female known to me and the floor from prior admission for exacerbation of CIDP as well as decompression of cervical stenosis. After that discharge, the patient had left at a modified independent level and was functioning well at home initially, and then in June starting having some increasing weakness and was seen again at the [facility] for evaluation. The patient needed to increase from mod to min assist in her activities of daily living (ADL) were back to a modified independent standby assistance level to facilitate ongoing home situation where the patient has an extremely supportive family. The patient was admitted for acute intensive neurorehabilitation on 08/22/2017. No procedures were performed during this time. Diagnostic and laboratory tests showed the patient to have normal white count, hemoglobin, hematocrit, basic electrolytes, BUN and creatinine with elevated blood sugars related to her type 2 diabetes mellitus in the 100 range. HOSPITAL COURSE: Patient was admitted on 08/22/2017, evaluated by physical and occupational therapy. She has been participating therapy that significantly impacted on her mobility and safety has problem with foot drop and some supination in gaiting and the patient has done better with posterior leaf Anabela howard and currently is using a loaner set. Overall, the patient has been stable with fair control of her diabetes, keeping blood sugar in the range of 100. In occupational therapy the patient demonstrating bed mobility and min assist and sit to supine had standby assist with min assistance in all other base transfers and moderate assist in toileting, and fair to fair plus standing balance. She has advanced her bed mobility to standby assist level, but still remains at min assist in most transfers and has gone from max to moderate assist in dressing lower body. Balance remains fair plus. Ambulation initially 22 feet with contact guard assist using a front wheel walker with stairs not attempted as the patient has ramping at home, and is 150 feet plus on wheelchair mobility on accessible environment and a modified independent way doing sliding board transfers and partial mod assist in toilet transfers with little improvement in her gaiting. The patient and her have arranged for further assessment by neurology at the [facility] and are being discharged today so that they can make the journey to be further assessed and possible further evaluation and treatment options. DISCHARGE MEDICATIONS: - tramadol 50 mg one by mouth every 6 hours as needed for moderate to severe pain - Tylenol 650 mg every 4 hours as needed pain for pain or fever - Apidra u100 before meals - Apidra SoloStar u100 system - atenolol 50 mg daily for hypertension - Wellbutrin 300 mg daily for mood - Colace 100 mg twice a day as needed constipation - Cymbalta 30 mg daily for mood and irritated nerves - gemfibrozil 600 mg daily for triglycerides - glimepiride 4 mg daily for diabetes - Plaquenil 200 mg twice a day for lupus - lisinopril 2.5 mg daily for hypertension - metformin 1 gram twice a day for diabetes - pravastatin 20 mg every evening for cholesterol - probiotic one capsule daily for bowel - sodium chloride nasal spray as needed - Tresiba FlexTouch 20 units daily DISCHARGE DIAGNOSES: 1. 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 2. 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 3. Obstructive sleep apnea on CPAP. 4. Hypertension. 5. Degenerative joint disease (DJD). COMPLICATIONS: None. DISCHARGE PLAN/INSTRUCTIONS: Patient is discharged home with family. She is to see DAWIT Dubon or Dr. Roman, her primary care, within two weeks. She is to see Dr. Yao on September 24 at 8:00 a.m. in [place] for neurology followup and then the [facility] on Sunday for the patient's previous scheduled appointment. The patient has been prescribed wheelchair and to principally use wheelchair mobility sliding board and a front wheel walker. She is on a regular diet. Time spent on discharge is greater than 35 minutes. cc: DAWIT Dubon Dr. [facility]
== END 2017-08-30 12:25 | disposition home or self-care (01) | DRG 351 ==
LOC: M PM&R 11:37
PROVIDERS: ADMIT Physical Medicine & Rehabilitation; ATTEND Physical Medicine & Rehabilitation
DX: M62.81 Muscle weakness (generalized) (principal); E11.42 Type 2 diabetes mellitus with diabetic polyneuropathy; M32.9 Systemic lupus erythematosus, unspecified; G61.81 Chronic inflammatory demyelinating polyneuritis; R20.2 Paresthesia of skin; R29.6 Repeated falls; I10 Essential (primary) hypertension; E78.5 Hyperlipidemia, unspecified; M21.379 Foot drop, unspecified foot; E78.00 Pure hypercholesterolemia, unspecified; G47.33 Obstructive sleep apnea (adult) (pediatric); F32.9 Major depressive disorder, single episode, unspecified; F41.9 Anxiety disorder, unspecified; E66.9 Obesity, unspecified; I25.10 Atherosclerotic heart disease of native coronary artery without angina pectoris; Z98.1 Arthrodesis status; Z99.89 Dependence on other enabling machines and devices; Z79.4 Long term (current) use of insulin; Z79.899 Other long term (current) drug therapy; Z88.1 Allergy status to other antibiotic agents; Z90.49 Acquired absence of other specified parts of digestive tract

== ENCOUNTER 2017-10-24 09:39 | Outpatient (CLI) | payer SELFPAY ==
[2017-10-24] MEDS: methylPREDNISolone 500 MG, VIAL MATE ADAPTER 1 EACH in D5W 250 ML IV (10:41)
[2017-10-24] MEDS: IMMUNE GLOBULIN 10% 10GM 100ML 10 GM in APPROPRIATE DILUENT 1 EA IV (12:24)
[2017-10-24] MEDS: IMMUNE GLOBULIN 10% 5GM 5 GM in APPROPRIATE DILUENT 1 EA IV (12:25)
[2017-10-24] MEDS: IMMUNE GLOBULIN 10% 20GM 200ML 20 GM in APPROPRIATE DILUENT 1 EA IV (12:25)
== END 2017-10-24 15:45 | disposition home or self-care (01) ==
LOC: M INFU 09:39
DX: G61.81 Chronic inflammatory demyelinating polyneuritis (principal); Z79.899 Other long term (current) drug therapy; Z79.891 Long term (current) use of opiate analgesic; Z88.8 Allergy status to other drugs, medicaments and biological substances
CPT/HCPCS: J2930

== ENCOUNTER 2017-11-01 08:47 | Outpatient (CLI) | payer SELFPAY ==
[2017-11-01] MEDS: methylPREDNISolone 500 MG, VIAL MATE ADAPTER 1 EACH in D5W 250 ML IV (09:17)
[2017-11-01] MEDS: IMMUNE GLOBULIN 10% 20GM 200ML 20 GM in APPROPRIATE DILUENT 1 EA IV (10:45)
[2017-11-01] MEDS: IMMUNE GLOBULIN 10% 10GM 100ML 10 GM in APPROPRIATE DILUENT 1 EA IV (10:51)
[2017-11-01] MEDS: IMMUNE GLOBULIN 10% 5GM 5 GM in APPROPRIATE DILUENT 1 EA IV (10:52)
== END 2017-11-01 13:45 | disposition home or self-care (01) ==
LOC: M INFU 08:47
DX: G61.81 Chronic inflammatory demyelinating polyneuritis (principal); G61.0 Guillain-Barre syndrome; I10 Essential (primary) hypertension; E11.9 Type 2 diabetes mellitus without complications; K21.9 Gastro-esophageal reflux disease without esophagitis; G47.30 Sleep apnea, unspecified; F32.9 Major depressive disorder, single episode, unspecified; F41.9 Anxiety disorder, unspecified; Z79.899 Other long term (current) drug therapy; Z88.1 Allergy status to other antibiotic agents; Z90.49 Acquired absence of other specified parts of digestive tract
CPT/HCPCS: J2930

== ENCOUNTER 2017-11-07 08:47 | Outpatient (CLI) | payer SELFPAY ==
[2017-11-07] MEDS: methylPREDNISolone 500 MG VIAL (J2930) IV (09:20)
[2017-11-07] MEDS: IMMUNE GLOBULIN 10% 20GM 200ML 20 GM in APPROPRIATE DILUENT 1 EA IV (10:24)
[2017-11-07] MEDS: IMMUNE GLOBULIN 10% 10GM 100ML 10 GM in APPROPRIATE DILUENT 1 EA IV (10:25)
[2017-11-07] MEDS: IMMUNE GLOBULIN 10% 5GM 5 GM in APPROPRIATE DILUENT 1 EA IV (10:26)
== END 2017-11-07 15:40 | disposition home or self-care (01) ==
LOC: M INFU 08:47
DX: G61.81 Chronic inflammatory demyelinating polyneuritis (principal); I10 Essential (primary) hypertension; E78.00 Pure hypercholesterolemia, unspecified; E11.9 Type 2 diabetes mellitus without complications; F32.9 Major depressive disorder, single episode, unspecified; F41.9 Anxiety disorder, unspecified; Z79.891 Long term (current) use of opiate analgesic; Z79.899 Other long term (current) drug therapy; Z79.84 Long term (current) use of oral hypoglycemic drugs
CPT/HCPCS: J2930

== ENCOUNTER 2017-11-14 09:53 | Outpatient (CLI) | payer SELFPAY ==
[2017-11-14] MEDS: methylPREDNISolone 500 MG, VIAL MATE ADAPTER 1 EACH in D5W 250 ML IV (11:02)
[2017-11-14] MEDS: IMMUNE GLOBULIN 10% 10GM 100ML 10 GM in APPROPRIATE DILUENT 1 EA IV (12:15)
[2017-11-14] MEDS: IMMUNE GLOBULIN 10% 20GM 200ML 20 GM in APPROPRIATE DILUENT 1 EA IV (12:15)
[2017-11-14] MEDS: IMMUNE GLOBULIN 10% 5GM 5 GM in APPROPRIATE DILUENT 1 EA IV (12:16)
== END 2017-11-14 15:15 | disposition home or self-care (01) ==
LOC: M INFU 09:53
DX: G61.81 Chronic inflammatory demyelinating polyneuritis (principal); Z88.1 Allergy status to other antibiotic agents; Z79.899 Other long term (current) drug therapy
CPT/HCPCS: J2930

== ENCOUNTER 2017-11-22 07:46 | Outpatient (CLI) | payer SELFPAY ==
[2017-11-22] MEDS: methylPREDNISolone 500 MG, VIAL MATE ADAPTER 1 EACH in D5W 250 ML IV (08:15)
[2017-11-22] MEDS: IMMUNE GLOBULIN 10% 20GM 200ML 20 GM in APPROPRIATE DILUENT 1 EA IV (09:37)
[2017-11-22] MEDS: IMMUNE GLOBULIN 10% 5GM 5 GM in APPROPRIATE DILUENT 1 EA IV (09:38)
[2017-11-22] MEDS: IMMUNE GLOBULIN 10% 10GM 100ML 10 GM in APPROPRIATE DILUENT 1 EA IV (09:39)
== END 2017-11-22 12:30 | disposition home or self-care (01) ==
LOC: M INFU 07:46
DX: G61.81 Chronic inflammatory demyelinating polyneuritis (principal); I10 Essential (primary) hypertension; G61.0 Guillain-Barre syndrome; K21.9 Gastro-esophageal reflux disease without esophagitis; E11.9 Type 2 diabetes mellitus without complications; M32.9 Systemic lupus erythematosus, unspecified; F32.9 Major depressive disorder, single episode, unspecified; F41.9 Anxiety disorder, unspecified; Z79.899 Other long term (current) drug therapy; Z88.1 Allergy status to other antibiotic agents
CPT/HCPCS: J2930

== ENCOUNTER 2017-11-29 07:18 | Outpatient (CLI) | payer SELFPAY ==
[2017-11-29] MEDS: HumaLOG INSULIN (NovoLOG) PER UNIT SC (07:40)
[2017-11-29] MEDS: methylPREDNISolone 500 MG, VIAL MATE ADAPTER 1 EACH in D5W 250 ML IV (08:04)
[2017-11-29] MEDS: LEVEMIR (INSULIN DETEMIR) 1 UNITS/0.01ML SC (08:16)
[2017-11-29] MEDS: IMMUNE GLOBULIN 10% 10GM 100ML 10 GM in APPROPRIATE DILUENT 1 EA IV (09:08)
[2017-11-29] MEDS: IMMUNE GLOBULIN 10% 5GM 5 GM in APPROPRIATE DILUENT 1 EA IV (09:09)
[2017-11-29] MEDS: IMMUNE GLOBULIN 10% 20GM 200ML 20 GM in APPROPRIATE DILUENT 1 EA IV (09:10)
[2017-11-29] MEDS ORDERED: HumaLOG INSULIN (NovoLOG) PER UNIT SC (21:00)
== END 2017-11-29 12:45 | disposition home or self-care (01) ==
LOC: M INFU 07:18
DX: G61.81 Chronic inflammatory demyelinating polyneuritis (principal); G61.0 Guillain-Barre syndrome; I10 Essential (primary) hypertension; K21.9 Gastro-esophageal reflux disease without esophagitis; E11.9 Type 2 diabetes mellitus without complications; F32.9 Major depressive disorder, single episode, unspecified; F41.9 Anxiety disorder, unspecified; M32.9 Systemic lupus erythematosus, unspecified; Z79.4 Long term (current) use of insulin; Z79.899 Other long term (current) drug therapy; Z79.891 Long term (current) use of opiate analgesic
CPT/HCPCS: J2930

== ENCOUNTER 2017-12-06 07:14 | Outpatient (CLI) | payer SELFPAY ==
[2017-12-06] MEDS: methylPREDNISolone 500 MG, VIAL MATE ADAPTER 1 EACH in D5W 250 ML IV (08:05)
[2017-12-06] MEDS: IMMUNE GLOBULIN 10% 20GM 200ML 20 GM in APPROPRIATE DILUENT 1 EA IV (08:06)
[2017-12-06] MEDS: IMMUNE GLOBULIN 10% 10GM 100ML 10 GM in APPROPRIATE DILUENT 1 EA IV (08:09)
[2017-12-06] MEDS: IMMUNE GLOBULIN 10% 5GM 5 GM in APPROPRIATE DILUENT 1 EA IV (08:10)
== END 2017-12-06 12:20 | disposition home or self-care (01) ==
LOC: M INFU 07:14
DX: G61.81 Chronic inflammatory demyelinating polyneuritis (principal); G61.0 Guillain-Barre syndrome; K21.9 Gastro-esophageal reflux disease without esophagitis; F32.9 Major depressive disorder, single episode, unspecified; F41.9 Anxiety disorder, unspecified; I10 Essential (primary) hypertension; E11.9 Type 2 diabetes mellitus without complications; M32.9 Systemic lupus erythematosus, unspecified; Z79.4 Long term (current) use of insulin; Z79.899 Other long term (current) drug therapy; Z79.891 Long term (current) use of opiate analgesic; Z88.8 Allergy status to other drugs, medicaments and biological substances
CPT/HCPCS: J2930

== ENCOUNTER 2017-12-14 07:42 | Outpatient (CLI) | payer SELFPAY ==
[2017-12-14] MEDS: methylPREDNISolone 500 MG, VIAL MATE ADAPTER 1 EACH in D5W 250 ML IV (08:26)
[2017-12-14] MEDS: IMMUNE GLOBULIN 10% 10GM 100ML 10 GM in APPROPRIATE DILUENT 1 EA IV (08:27)
[2017-12-14] MEDS: IMMUNE GLOBULIN 10% 20GM 200ML 20 GM in APPROPRIATE DILUENT 1 EA IV (08:28)
[2017-12-14] MEDS: IMMUNE GLOBULIN 10% 5GM 5 GM in APPROPRIATE DILUENT 1 EA IV (08:28)
== END 2017-12-14 12:30 | disposition home or self-care (01) ==
LOC: M INFU 07:42
DX: G61.81 Chronic inflammatory demyelinating polyneuritis (principal); G61.0 Guillain-Barre syndrome; I10 Essential (primary) hypertension; K21.9 Gastro-esophageal reflux disease without esophagitis; E11.9 Type 2 diabetes mellitus without complications; F32.9 Major depressive disorder, single episode, unspecified; F41.9 Anxiety disorder, unspecified; M32.9 Systemic lupus erythematosus, unspecified; Z79.84 Long term (current) use of oral hypoglycemic drugs; Z79.899 Other long term (current) drug therapy
CPT/HCPCS: J2930

== ENCOUNTER 2017-12-26 07:48 | Outpatient (CLI) | payer OTHER ==
[2017-12-26] MEDS: methylPREDNISolone 500 MG, VIAL MATE ADAPTER 1 EACH in D5W 250 ML IV (08:20)
[2017-12-26] MEDS: IMMUNE GLOBULIN 10% 20GM 200ML 20 GM in APPROPRIATE DILUENT 1 EA IV (08:24)
[2017-12-26] MEDS: IMMUNE GLOBULIN 10% 10GM 100ML 10 GM in APPROPRIATE DILUENT 1 EA IV (08:25)
[2017-12-26] MEDS: IMMUNE GLOBULIN 10% 5GM 5 GM in APPROPRIATE DILUENT 1 EA IV (08:26)
== END 2017-12-26 12:15 | disposition home or self-care (01) ==
LOC: M INFU 07:48
DX: G61.81 Chronic inflammatory demyelinating polyneuritis (principal); I10 Essential (primary) hypertension; E11.9 Type 2 diabetes mellitus without complications; K21.9 Gastro-esophageal reflux disease without esophagitis; F32.9 Major depressive disorder, single episode, unspecified; F41.9 Anxiety disorder, unspecified; Z79.4 Long term (current) use of insulin; Z79.891 Long term (current) use of opiate analgesic; Z79.899 Other long term (current) drug therapy; Z88.8 Allergy status to other drugs, medicaments and biological substances
CPT/HCPCS: J2930

== ENCOUNTER 2018-01-01 08:24 | Outpatient (RCR) | payer SELFPAY, OTHER | END 2018-01-14 | LOC: M PT 01-04 09:02 | DX: G61.81 Chronic inflammatory demyelinating polyneuritis (principal) | CPT/HCPCS: 97110 ==

== ENCOUNTER 2018-01-02 07:11 | Outpatient (CLI) | payer OTHER ==
[2018-01-02] MEDS: methylPREDNISolone 500 MG, VIAL MATE ADAPTER 1 EACH in D5W 250 ML IV (08:13)
[2018-01-02] MEDS: IMMUNE GLOBULIN 10% 10GM 100ML 30 GM in APPROPRIATE DILUENT 1 EA IV (08:26)
[2018-01-02] MEDS: IMMUNE GLOBULIN 10% 5GM 5 GM in APPROPRIATE DILUENT 1 EA IV (08:27)
== END 2018-01-02 12:00 | disposition home or self-care (01) ==
LOC: M INFU 07:11
DX: G61.81 Chronic inflammatory demyelinating polyneuritis (principal); G61.0 Guillain-Barre syndrome; I10 Essential (primary) hypertension; E78.00 Pure hypercholesterolemia, unspecified; E11.9 Type 2 diabetes mellitus without complications; K21.9 Gastro-esophageal reflux disease without esophagitis; M32.9 Systemic lupus erythematosus, unspecified; F32.9 Major depressive disorder, single episode, unspecified; F41.9 Anxiety disorder, unspecified; Z97.4 Presence of external hearing-aid; Z79.899 Other long term (current) drug therapy; Z79.891 Long term (current) use of opiate analgesic; Z88.8 Allergy status to other drugs, medicaments and biological substances
CPT/HCPCS: J2930

== ENCOUNTER 2018-01-09 07:15 | Outpatient (CLI) | payer SELFPAY, OTHER ==
[2018-01-09] MEDS: methylPREDNISolone 500 MG, VIAL MATE ADAPTER 1 EACH in D5W 250 ML IV (08:11)
[2018-01-09] MEDS: IMMUNE GLOBULIN 10% 10GM 100ML 30 GM in APPROPRIATE DILUENT 1 EA IV (08:20)
[2018-01-09] MEDS: IMMUNE GLOBULIN 10% 5GM 5 GM in APPROPRIATE DILUENT 1 EA IV (08:21)
== END 2018-01-09 12:30 | disposition home or self-care (01) ==
LOC: M INFU 07:15
DX: G61.81 Chronic inflammatory demyelinating polyneuritis (principal); I10 Essential (primary) hypertension; E11.9 Type 2 diabetes mellitus without complications; K21.9 Gastro-esophageal reflux disease without esophagitis; F32.9 Major depressive disorder, single episode, unspecified; F41.9 Anxiety disorder, unspecified; Z79.891 Long term (current) use of opiate analgesic; Z79.899 Other long term (current) drug therapy; Z88.8 Allergy status to other drugs, medicaments and biological substances
CPT/HCPCS: J2930

== ENCOUNTER 2018-01-16 07:10 | Outpatient (CLI) | payer OTHER ==
[2018-01-16] MEDS: methylPREDNISolone 500 MG, VIAL MATE ADAPTER 1 EACH in D5W 250 ML IV (07:43)
[2018-01-16] MEDS: IMMUNE GLOBULIN 10% 10GM 100ML 10 GM in APPROPRIATE DILUENT 1 EA IV (08:51)
[2018-01-16] MEDS: IMMUNE GLOBULIN 10% 5GM 5 GM in APPROPRIATE DILUENT 1 EA IV (08:52)
[2018-01-16] MEDS: IMMUNE GLOBULIN 10% 20GM 200ML 20 GM in APPROPRIATE DILUENT 1 EA IV (08:53)
== END 2018-01-16 11:45 ==
LOC: M INFU 07:10
DX: G61.81 Chronic inflammatory demyelinating polyneuritis (principal); I10 Essential (primary) hypertension; E11.9 Type 2 diabetes mellitus without complications; G47.30 Sleep apnea, unspecified; F41.9 Anxiety disorder, unspecified; F32.9 Major depressive disorder, single episode, unspecified; M32.9 Systemic lupus erythematosus, unspecified; Z79.4 Long term (current) use of insulin; Z79.899 Other long term (current) drug therapy; Z88.8 Allergy status to other drugs, medicaments and biological substances
CPT/HCPCS: J2930

== ENCOUNTER 2018-01-23 07:11 | Outpatient (CLI) | payer OTHER ==
[2018-01-23] MEDS ORDERED: IMMUNE GLOBULIN 10% 10GM 100ML 10 GM in APPROPRIATE DILUENT 1 EA IV (07:30)
[2018-01-23] MEDS ORDERED: IMMUNE GLOBULIN 10% 20GM 200ML 20 GM in APPROPRIATE DILUENT 1 EA IV (07:30)
[2018-01-23] MEDS: methylPREDNISolone 500 MG, VIAL MATE ADAPTER 1 EACH in D5W 250 ML IV (07:44)
[2018-01-23] MEDS: IMMUNE GLOBULIN 10% 5GM 5 GM in APPROPRIATE DILUENT 1 EA IV (08:21)
[2018-01-23] MEDS: IMMUNE GLOBULIN 10% 10GM 100ML 30 GM in APPROPRIATE DILUENT 1 EA IV (08:22)
== END 2018-01-23 11:40 | disposition home or self-care (01) ==
LOC: M INFU 07:11
DX: G61.81 Chronic inflammatory demyelinating polyneuritis (principal); E11.9 Type 2 diabetes mellitus without complications; I10 Essential (primary) hypertension; G47.30 Sleep apnea, unspecified; F41.9 Anxiety disorder, unspecified; F32.9 Major depressive disorder, single episode, unspecified; M32.9 Systemic lupus erythematosus, unspecified; Z79.4 Long term (current) use of insulin; Z79.899 Other long term (current) drug therapy; Z88.8 Allergy status to other drugs, medicaments and biological substances
CPT/HCPCS: J2930

== ENCOUNTER 2018-01-30 07:06 | Outpatient (CLI) | payer SELFPAY, OTHER ==
[2018-01-30] MEDS: methylPREDNISolone 500 MG, VIAL MATE ADAPTER 1 EACH in D5W 250 ML IV (07:38)
[2018-01-30] MEDS: IMMUNE GLOBULIN 10% 5GM 5 GM in APPROPRIATE DILUENT 1 EA IV (08:17)
[2018-01-30] MEDS: IMMUNE GLOBULIN 10% 10GM 100ML 30 GM in APPROPRIATE DILUENT 1 EA IV (08:19)
== END 2018-01-30 11:40 | disposition home or self-care (01) ==
LOC: M INFU 07:06
DX: G61.81 Chronic inflammatory demyelinating polyneuritis (principal); I10 Essential (primary) hypertension; E11.9 Type 2 diabetes mellitus without complications; G47.30 Sleep apnea, unspecified; M32.9 Systemic lupus erythematosus, unspecified; F41.9 Anxiety disorder, unspecified; F32.9 Major depressive disorder, single episode, unspecified; Z79.4 Long term (current) use of insulin; Z79.891 Long term (current) use of opiate analgesic; Z79.899 Other long term (current) drug therapy; Z88.8 Allergy status to other drugs, medicaments and biological substances
CPT/HCPCS: J2930

== ENCOUNTER 2018-02-13 07:14 | Outpatient (CLI) | payer OTHER, SELFPAY ==
[2018-02-13] MEDS: methylPREDNISolone 500 MG, VIAL MATE ADAPTER 1 EACH in D5W 250 ML IV (07:44)
[2018-02-13] MEDS: IMMUNE GLOBULIN 10% 10GM 100ML 10 GM in APPROPRIATE DILUENT 1 EA IV (08:48)
[2018-02-13] MEDS: IMMUNE GLOBULIN 10% 5GM 5 GM in APPROPRIATE DILUENT 1 EA IV (08:49)
[2018-02-13] MEDS: IMMUNE GLOBULIN 10% 20GM 200ML 20 GM in APPROPRIATE DILUENT 1 EA IV (08:50)
== END 2018-02-13 11:55 | disposition home or self-care (01) ==
LOC: M INFU 07:14
DX: G61.81 Chronic inflammatory demyelinating polyneuritis (principal); E11.9 Type 2 diabetes mellitus without complications; G47.30 Sleep apnea, unspecified; M32.9 Systemic lupus erythematosus, unspecified; F41.9 Anxiety disorder, unspecified; F32.9 Major depressive disorder, single episode, unspecified; Z79.4 Long term (current) use of insulin; Z79.899 Other long term (current) drug therapy; Z88.8 Allergy status to other drugs, medicaments and biological substances
CPT/HCPCS: J2930

== ENCOUNTER 2018-02-19 08:52 | Outpatient (RCR) | payer SELFPAY | END 2018-03-16 | LOC: M PT 08:52 | DX: Z51.89 Encounter for other specified aftercare (principal); G61.81 Chronic inflammatory demyelinating polyneuritis ==

== ENCOUNTER 2018-02-20 07:07 | Outpatient (CLI) | payer SELFPAY ==
[2018-02-20] MEDS: methylPREDNISolone 500 MG, VIAL MATE ADAPTER 1 EACH in D5W 250 ML IV (07:49)
[2018-02-20] MEDS: IMMUNE GLOBULIN 10% 10GM 100ML 10 GM in APPROPRIATE DILUENT 1 EA IV (07:51)
[2018-02-20] MEDS: IMMUNE GLOBULIN 10% 5GM 5 GM in APPROPRIATE DILUENT 1 EA IV (07:51)
[2018-02-20] MEDS: IMMUNE GLOBULIN 10% 20GM 200ML 20 GM in APPROPRIATE DILUENT 1 EA IV (07:52)
== END 2018-02-20 12:15 | disposition home or self-care (01) ==
LOC: M INFU 07:07
DX: G61.81 Chronic inflammatory demyelinating polyneuritis (principal); E11.9 Type 2 diabetes mellitus without complications; G47.30 Sleep apnea, unspecified; I10 Essential (primary) hypertension; M32.9 Systemic lupus erythematosus, unspecified; F41.9 Anxiety disorder, unspecified; F32.9 Major depressive disorder, single episode, unspecified; Z79.899 Other long term (current) drug therapy; Z88.8 Allergy status to other drugs, medicaments and biological substances
CPT/HCPCS: J2930

== ENCOUNTER 2018-03-06 07:31 | Outpatient (CLI) | payer SELFPAY ==
[2018-03-06] MEDS ORDERED: IMMUNE GLOBULIN 10% 30 GM in APPROPRIATE DILUENT 1 EA IV (08:00)
[2018-03-06] MEDS: methylPREDNISolone 500 MG, VIAL MATE ADAPTER 1 EACH in D5W 250 ML IV (08:08)
[2018-03-06] MEDS: IMMUNE GLOBULIN 10% 10 GM in APPROPRIATE DILUENT 1 EA IV (09:15)
[2018-03-06] MEDS: IMMUNE GLOBULIN 10% 20 GM in APPROPRIATE DILUENT 1 EA IV (09:16)
[2018-03-06] MEDS: IMMUNE GLOBULIN 10% 5 GM in APPROPRIATE DILUENT 1 EA IV (09:17)
== END 2018-03-06 12:10 | disposition home or self-care (01) ==
LOC: M INFU 07:31
DX: G61.81 Chronic inflammatory demyelinating polyneuritis (principal); E11.9 Type 2 diabetes mellitus without complications; G47.30 Sleep apnea, unspecified; I10 Essential (primary) hypertension; M32.9 Systemic lupus erythematosus, unspecified; F41.9 Anxiety disorder, unspecified; F32.9 Major depressive disorder, single episode, unspecified; Z97.4 Presence of external hearing-aid; Z79.891 Long term (current) use of opiate analgesic; Z79.899 Other long term (current) drug therapy; Z88.8 Allergy status to other drugs, medicaments and biological substances
CPT/HCPCS: J1568

== ENCOUNTER 2018-03-13 10:59 | Outpatient (CLI) | payer SELFPAY ==
[2018-03-13] MEDS: methylPREDNISolone 500 MG, VIAL MATE ADAPTER 1 EACH in D5W 250 ML IV (11:50)
== END 2018-03-13 13:00 | disposition home or self-care (01) ==
LOC: M INFU 10:59
DX: G61.81 Chronic inflammatory demyelinating polyneuritis (principal); Z98.1 Arthrodesis status; Z88.1 Allergy status to other antibiotic agents; Z79.4 Long term (current) use of insulin; Z79.899 Other long term (current) drug therapy
CPT/HCPCS: J2930

== ENCOUNTER 2018-03-27 11:19 | Outpatient (CLI) | payer SELFPAY ==
[2018-03-27] MEDS: methylPREDNISolone 500 MG, VIAL MATE ADAPTER 1 EACH in D5W 250 ML IV (11:50)
[2018-03-27] MEDS ORDERED: IMMUNE GLOBULIN 10% 5GM 5 GM in APPROPRIATE DILUENT 1 EA IV (12:00)
[2018-03-27] MEDS ORDERED: IMMUNE GLOBULIN 10% 10GM 100ML 10 GM in APPROPRIATE DILUENT 1 EA IV (12:00)
[2018-03-27] MEDS ORDERED: IMMUNE GLOBULIN 10% 20GM 200ML 20 GM in APPROPRIATE DILUENT 1 EA IV (12:00)
== END 2018-03-27 13:00 | disposition home or self-care (01) ==
LOC: M INFU 11:19
DX: G61.81 Chronic inflammatory demyelinating polyneuritis (principal); Z98.1 Arthrodesis status; Z88.1 Allergy status to other antibiotic agents; Z79.4 Long term (current) use of insulin; Z79.899 Other long term (current) drug therapy
CPT/HCPCS: J2930

== ENCOUNTER 2018-04-03 07:27 | Outpatient (CLI) | payer SELFPAY ==
[2018-04-03] MEDS: methylPREDNISolone 1000 MG VIAL (J2930) IV (07:52)
[2018-04-03] MEDS: IMMUNE GLOBULIN 10% 10GM 100ML 10 GM in APPROPRIATE DILUENT 1 EA IV (07:53)
[2018-04-03] MEDS: IMMUNE GLOBULIN 10% 5GM 5 GM in APPROPRIATE DILUENT 1 EA IV (07:54)
[2018-04-03] MEDS: IMMUNE GLOBULIN 10% 20GM 200ML 20 GM in APPROPRIATE DILUENT 1 EA IV (07:54)
== END 2018-04-03 12:05 | disposition home or self-care (01) ==
LOC: M INFU 07:27
DX: G61.81 Chronic inflammatory demyelinating polyneuritis (principal); E11.9 Type 2 diabetes mellitus without complications; G47.30 Sleep apnea, unspecified; I10 Essential (primary) hypertension; M32.9 Systemic lupus erythematosus, unspecified; F41.9 Anxiety disorder, unspecified; F32.9 Major depressive disorder, single episode, unspecified; Z79.4 Long term (current) use of insulin; Z79.899 Other long term (current) drug therapy; Z79.891 Long term (current) use of opiate analgesic; Z88.8 Allergy status to other drugs, medicaments and biological substances
CPT/HCPCS: J2930

== ENCOUNTER 2018-04-10 10:54 | Outpatient (CLI) | payer SELFPAY ==
[2018-04-10] MEDS: methylPREDNISolone 1000 MG VIAL (J2930) IV (11:27)
== END 2018-04-10 12:40 | disposition home or self-care (01) ==
LOC: M INFU 10:54
DX: G61.81 Chronic inflammatory demyelinating polyneuritis (principal); Z98.1 Arthrodesis status; Z79.4 Long term (current) use of insulin; Z79.899 Other long term (current) drug therapy
CPT/HCPCS: J2930

== ENCOUNTER 2018-04-17 07:53 | Outpatient (CLI) | payer SELFPAY ==
[2018-04-17] MEDS: methylPREDNISolone 500 MG, VIAL MATE ADAPTER 1 EACH in D5W 250 ML IV (08:15)
[2018-04-17] MEDS: IMMUNE GLOBULIN 10% 20GM 200ML 20 GM in APPROPRIATE DILUENT 1 EA IV (08:21)
[2018-04-17] MEDS: IMMUNE GLOBULIN 10% 10GM 100ML 10 GM in APPROPRIATE DILUENT 1 EA IV (08:22)
[2018-04-17] MEDS: IMMUNE GLOBULIN 10% 5GM 5 GM in APPROPRIATE DILUENT 1 EA IV (08:22)
== END 2018-04-17 11:30 | disposition home or self-care (01) ==
LOC: M INFU 07:53
DX: G61.81 Chronic inflammatory demyelinating polyneuritis (principal); Z98.1 Arthrodesis status; Z79.899 Other long term (current) drug therapy; Z79.4 Long term (current) use of insulin; Z88.1 Allergy status to other antibiotic agents
CPT/HCPCS: J1569

== ENCOUNTER 2018-05-01 07:17 | Outpatient (CLI) | payer SELFPAY ==
[2018-05-01] MEDS: IMMUNE GLOBULIN 10% 5GM 5 GM in APPROPRIATE DILUENT 1 EA IV (07:48)
[2018-05-01] MEDS: IMMUNE GLOBULIN 10% 10GM 100ML 10 GM in APPROPRIATE DILUENT 1 EA IV (07:48)
[2018-05-01] MEDS: IMMUNE GLOBULIN 10% 20GM 200ML 20 GM in APPROPRIATE DILUENT 1 EA IV (07:49)
== END 2018-05-01 11:20 | disposition home or self-care (01) ==
LOC: M INFU 07:17
DX: G61.81 Chronic inflammatory demyelinating polyneuritis (principal); E11.9 Type 2 diabetes mellitus without complications; M32.9 Systemic lupus erythematosus, unspecified; J30.2 Other seasonal allergic rhinitis; I10 Essential (primary) hypertension; E78.00 Pure hypercholesterolemia, unspecified; G61.0 Guillain-Barre syndrome; F41.9 Anxiety disorder, unspecified; F32.9 Major depressive disorder, single episode, unspecified; Z79.4 Long term (current) use of insulin; Z79.891 Long term (current) use of opiate analgesic; Z79.899 Other long term (current) drug therapy; Z88.8 Allergy status to other drugs, medicaments and biological substances; Z85.43 Personal history of malignant neoplasm of ovary; Z98.51 Tubal ligation status; Z90.49 Acquired absence of other specified parts of digestive tract
CPT/HCPCS: J1569

== ENCOUNTER 2018-05-15 07:27 | Outpatient (CLI) | payer SELFPAY ==
[2018-05-15] MEDS: IMMUNE GLOBULIN 10% 10GM 100ML 10 GM in APPROPRIATE DILUENT 1 EA IV (08:08)
[2018-05-15] MEDS: IMMUNE GLOBULIN 10% 5GM 5 GM in APPROPRIATE DILUENT 1 EA IV (08:10)
[2018-05-15] MEDS: IMMUNE GLOBULIN 10% 20GM 200ML 20 GM in APPROPRIATE DILUENT 1 EA IV (08:11)
== END 2018-05-15 11:15 | disposition home or self-care (01) ==
LOC: M INFU 07:27
DX: G61.81 Chronic inflammatory demyelinating polyneuritis (principal); G47.30 Sleep apnea, unspecified; K21.9 Gastro-esophageal reflux disease without esophagitis; K64.8 Other hemorrhoids; H90.3 Sensorineural hearing loss, bilateral; E11.9 Type 2 diabetes mellitus without complications; R13.10 Dysphagia, unspecified; M19.90 Unspecified osteoarthritis, unspecified site; G70.00 Myasthenia gravis without (acute) exacerbation; R53.1 Weakness; F41.9 Anxiety disorder, unspecified; F32.9 Major depressive disorder, single episode, unspecified; Z86.14 Personal history of Methicillin resistant Staphylococcus aureus infection; Z86.69 Personal history of other diseases of the nervous system and sense organs; Z87.39 Personal history of other diseases of the musculoskeletal system and connective tissue; Z87.01 Personal history of pneumonia (recurrent); Z79.899 Other long term (current) drug therapy; Z79.4 Long term (current) use of insulin; Z88.1 Allergy status to other antibiotic agents
CPT/HCPCS: J1569

== ENCOUNTER 2018-05-29 07:42 | Outpatient (CLI) | payer SELFPAY ==
[2018-05-29] MEDS: IMMUNE GLOBULIN 10% 5GM 5 GM in APPROPRIATE DILUENT 1 EA IV (08:04)
[2018-05-29] MEDS: IMMUNE GLOBULIN 10% 10GM 100ML 10 GM in APPROPRIATE DILUENT 1 EA IV (08:05)
[2018-05-29] MEDS: IMMUNE GLOBULIN 10% 20GM 200ML 20 GM in APPROPRIATE DILUENT 1 EA IV (08:07)
== END 2018-05-29 11:00 | disposition home or self-care (01) ==
LOC: M INFU 07:42
DX: G61.81 Chronic inflammatory demyelinating polyneuritis (principal); E11.9 Type 2 diabetes mellitus without complications; E78.00 Pure hypercholesterolemia, unspecified; F41.9 Anxiety disorder, unspecified; F32.9 Major depressive disorder, single episode, unspecified; G47.30 Sleep apnea, unspecified; G61.0 Guillain-Barre syndrome; M32.10 Systemic lupus erythematosus, organ or system involvement unspecified; Z79.4 Long term (current) use of insulin; Z79.891 Long term (current) use of opiate analgesic; Z79.899 Other long term (current) drug therapy; Z88.8 Allergy status to other drugs, medicaments and biological substances; Z86.14 Personal history of Methicillin resistant Staphylococcus aureus infection; Z90.49 Acquired absence of other specified parts of digestive tract
CPT/HCPCS: J1569

== ENCOUNTER 2018-06-12 09:50 | Outpatient (CLI) | payer SELFPAY ==
[2018-06-12] MEDS: IMMUNE GLOBULIN 10% 20GM 200ML 20 GM in APPROPRIATE DILUENT 1 EA IV (10:36)
[2018-06-12] MEDS: IMMUNE GLOBULIN 10% 10GM 100ML 10 GM in APPROPRIATE DILUENT 1 EA IV (10:37)
[2018-06-12] MEDS: IMMUNE GLOBULIN 10% 5GM 5 GM in APPROPRIATE DILUENT 1 EA IV (10:37)
== END 2018-06-12 13:40 | disposition home or self-care (01) ==
LOC: M INFU 09:50
DX: G61.81 Chronic inflammatory demyelinating polyneuritis (principal); Z88.1 Allergy status to other antibiotic agents
CPT/HCPCS: J1569

== ENCOUNTER 2018-06-25 10:26 | Outpatient (CLI) | payer SELFPAY ==
[2018-06-25] MEDS: IMMUNE GLOBULIN 10% 5GM 5 GM in APPROPRIATE DILUENT 1 EA IV (10:45)
[2018-06-25] MEDS: IMMUNE GLOBULIN 10% 10GM 100ML 10 GM in APPROPRIATE DILUENT 1 EA IV (11:40)
[2018-06-25] MEDS: IMMUNE GLOBULIN 10% 20GM 200ML 20 GM in APPROPRIATE DILUENT 1 EA IV (11:42)
== END 2018-06-25 14:15 | disposition home or self-care (01) ==
LOC: M INFU 10:26
DX: G61.81 Chronic inflammatory demyelinating polyneuritis (principal); Z88.1 Allergy status to other antibiotic agents
CPT/HCPCS: J1569

== ENCOUNTER 2018-07-10 07:37 | Outpatient (CLI) | payer SELFPAY ==
[2018-07-10] MEDS: IMMUNE GLOBULIN 10% 10GM 100ML 10 GM in APPROPRIATE DILUENT 1 EA IV (08:32)
[2018-07-10] MEDS: IMMUNE GLOBULIN 10% 5GM 5 GM in APPROPRIATE DILUENT 1 EA IV (08:33)
[2018-07-10] MEDS: IMMUNE GLOBULIN 10% 20GM 200ML 20 GM in APPROPRIATE DILUENT 1 EA IV (08:34)
== END 2018-07-10 11:45 | disposition home or self-care (01) ==
LOC: M INFU 07:37
DX: G61.81 Chronic inflammatory demyelinating polyneuritis (principal); Z79.891 Long term (current) use of opiate analgesic; Z79.899 Other long term (current) drug therapy; Z88.8 Allergy status to other drugs, medicaments and biological substances
CPT/HCPCS: J1569

== ENCOUNTER 2018-07-24 07:24 | Outpatient (CLI) | payer SELFPAY ==
[2018-07-24] MEDS: IMMUNE GLOBULIN 10% 20GM 200ML 20 GM in APPROPRIATE DILUENT 1 EA IV (07:55)
[2018-07-24] MEDS: IMMUNE GLOBULIN 10% 10GM 100ML 10 GM in APPROPRIATE DILUENT 1 EA IV (07:56)
[2018-07-24] MEDS: IMMUNE GLOBULIN 10% 5GM 5 GM in APPROPRIATE DILUENT 1 EA IV (07:57)
== END 2018-07-24 10:45 | disposition home or self-care (01) ==
LOC: M INFU 07:24
DX: G61.81 Chronic inflammatory demyelinating polyneuritis (principal); Z79.4 Long term (current) use of insulin; Z79.899 Other long term (current) drug therapy; Z88.8 Allergy status to other drugs, medicaments and biological substances
CPT/HCPCS: J1569

== ENCOUNTER 2018-08-07 07:22 | Outpatient (CLI) | payer SELFPAY ==
[2018-08-07] MEDS: IMMUNE GLOBULIN IV (08:11)
[2018-08-07] MEDS: [UNRECOGNIZED DRUG - OTHER] IV (08:11)
== END 2018-08-07 11:15 | disposition home or self-care (01) ==
LOC: M INFU 07:22
DX: G61.81 Chronic inflammatory demyelinating polyneuritis (principal); Z88.1 Allergy status to other antibiotic agents
CPT/HCPCS: J1459

== ENCOUNTER 2018-08-21 10:45 | Outpatient (CLI) | payer SELFPAY ==
[2018-08-21] MEDS: IMMUNE GLOBULIN 10% 5 GM in APPROPRIATE DILUENT 1 EA IV (11:30)
[2018-08-21] MEDS: IMMUNE GLOBULIN 10% 10 GM in APPROPRIATE DILUENT 1 EA IV (11:30)
[2018-08-21] MEDS: IMMUNE GLOBULIN 10% 20 GM in APPROPRIATE DILUENT 1 EA IV (11:30)
== END 2018-08-21 14:15 | disposition home or self-care (01) ==
LOC: M INFU 10:45
DX: G61.81 Chronic inflammatory demyelinating polyneuritis (principal); Z88.1 Allergy status to other antibiotic agents
CPT/HCPCS: J1459

== ENCOUNTER 2018-09-04 07:12 | Outpatient (CLI) | payer SELFPAY ==
[2018-09-04] VITALS (7 sets, daily range): BP systolic 114–136; BP diastolic 56–65
[~2018-09-04] VITALS: Ht 160 cm; Wt 84.1 kg
[~2018-09-04 07:12] MED LIST changes: -ACET1TAB17 PO; +ACET1TAB55 PO; +ACET500T15 PO; -ACET50TAOT PO; +APIDINJ SC; -GLIMEPIRIDE 2 MG TAB PO SCH; -LISI2.5T3 PO; +LISI2.5T5 PO; +LOVE0.6I2 SC; +LOVE1INJ SC; +OCEA0.654; +TRAM50TA2 PO
[2018-09-04] MEDS ORDERED: IMMUNE GLOBULIN 10% 5 GM in APPROPRIATE DILUENT 1 EA IV ONE (07:30)
[2018-09-04] MEDS ORDERED: IMMUNE GLOBULIN 10% 20 GM in APPROPRIATE DILUENT 1 EA IV ONE (07:30)
[2018-09-04] MEDS ORDERED: IMMUNE GLOBULIN 10% 10 GM in APPROPRIATE DILUENT 1 EA IV ONE (07:30)
== END 2018-09-04 10:50 | disposition home or self-care (01) ==
LOC: M INFU 07:12
PROVIDERS: ATTEND Internal Medicine
DX: G61.81 Chronic inflammatory demyelinating polyneuritis (principal); Z88.1 Allergy status to other antibiotic agents
CPT/HCPCS: 96365; 96366; J1459

== ENCOUNTER 2018-09-20 11:05 | Outpatient (CLI) | payer SELFPAY ==
[~2018-09-20] VITALS: Ht 158.8 cm; Wt 84.1 kg
[2018-09-20] MEDS ORDERED: IMMUNE GLOBULIN 10% 5 GM in APPROPRIATE DILUENT 1 EA IV ONE (12:00)
[2018-09-20] MEDS ORDERED: IMMUNE GLOBULIN 10% 10 GM in APPROPRIATE DILUENT 1 EA IV ONE (12:00)
[2018-09-20] MEDS ORDERED: IMMUNE GLOBULIN 10% 20 GM in APPROPRIATE DILUENT 1 EA IV ONE (12:00)
[2018-09-20 12:25] VITALS: BP 127/63
[2018-09-20 13:15] VITALS: BP 125/64
[2018-09-20 13:45] VITALS: BP 134/62
[2018-09-20 14:15] VITALS: BP 125/71
[2018-09-20 14:45] VITALS: BP 130/61
[2018-09-20 15:45] VITALS: BP 120/60
== END 2018-09-20 16:00 | disposition home or self-care (01) ==
LOC: M INFU 11:05
PROVIDERS: ATTEND Internal Medicine
DX: G61.81 Chronic inflammatory demyelinating polyneuritis (principal); Z79.4 Long term (current) use of insulin; Z79.899 Other long term (current) drug therapy
CPT/HCPCS: 96365; 96366; J1459

== ENCOUNTER 2018-10-04 11:08 | Outpatient (CLI) | payer SELFPAY ==
[~2018-10-04] VITALS: Ht 158.8 cm; Wt 84.1 kg
[2018-10-04 11:20] VITALS: BP 113/58
[2018-10-04] MEDS ORDERED: IMMUNE GLOBULIN 10% 20 GM in APPROPRIATE DILUENT 1 EA IV ONE (11:30)
[2018-10-04] MEDS ORDERED: IMMUNE GLOBULIN 10% 5 GM in APPROPRIATE DILUENT 1 EA IV ONE (11:30)
[2018-10-04] MEDS ORDERED: IMMUNE GLOBULIN 10% 10 GM in APPROPRIATE DILUENT 1 EA IV ONE (11:30)
[2018-10-04 12:55] VITALS: BP 106/56
[2018-10-04 13:30] VITALS: BP 119/56
[2018-10-04 14:00] VITALS: BP 121/60
[2018-10-04 14:25] VITALS: BP 97/54
[2018-10-04 15:45] VITALS: BP 114/57
== END 2018-10-04 15:45 | disposition home or self-care (01) ==
LOC: M INFU 11:08
PROVIDERS: ATTEND Internal Medicine
DX: G61.81 Chronic inflammatory demyelinating polyneuritis (principal); Z88.3 Allergy status to other anti-infective agents
CPT/HCPCS: 96365; 96366; J1459

== ENCOUNTER 2018-10-16 11:01 | Outpatient (CLI) | payer SELFPAY ==
[~2018-10-16] VITALS: Ht 158.8 cm; Wt 84.1 kg
[2018-10-16 11:05] VITALS: BP 119/56
[2018-10-16] MEDS ORDERED: IMMUNE GLOBULIN 10% 20 GM in APPROPRIATE DILUENT 1 EA IV ONE (11:30)
[2018-10-16] MEDS ORDERED: IMMUNE GLOBULIN 10% 10 GM in APPROPRIATE DILUENT 1 EA IV ONE (11:30)
[2018-10-16] MEDS ORDERED: IMMUNE GLOBULIN 10% 5 GM in APPROPRIATE DILUENT 1 EA IV ONE (11:30)
[2018-10-16 12:29] VITALS: BP 130/62
[2018-10-16 13:01] VITALS: BP 129/66
[2018-10-16 13:26] VITALS: BP 116/62
[2018-10-16 13:30] VITALS: BP 106/55
[2018-10-16 14:58] VITALS: BP 120/57
== END 2018-10-16 15:00 | disposition home or self-care (01) ==
LOC: M INFU 11:01
PROVIDERS: ATTEND Internal Medicine
DX: G61.81 Chronic inflammatory demyelinating polyneuritis (principal); Z88.1 Allergy status to other antibiotic agents
CPT/HCPCS: 96365; 96366; J1459

== ENCOUNTER 2018-10-30 09:54 | Outpatient (CLI) | payer SELFPAY ==
[~2018-10-30] VITALS: Ht 158.8 cm; Wt 84.1 kg
[2018-10-30 10:00] VITALS: BP 126/69
[2018-10-30 11:00] VITALS: BP 109/52
[2018-10-30] MEDS ORDERED: IMMUNE GLOBULIN 10% 10 GM in APPROPRIATE DILUENT 1 EA IV ONE (11:00)
[2018-10-30] MEDS ORDERED: IMMUNE GLOBULIN 10% 5 GM in APPROPRIATE DILUENT 1 EA IV ONE (11:00)
[2018-10-30] MEDS ORDERED: IMMUNE GLOBULIN 10% 20 GM in APPROPRIATE DILUENT 1 EA IV ONE (11:00)
[2018-10-30 11:30] VITALS: BP 110/55
[2018-10-30 12:00] VITALS: BP 113/65
[2018-10-30 13:00] VITALS: BP 121/60
[2018-10-30 13:30] VITALS: BP 122/64
== END 2018-10-30 13:45 | disposition home or self-care (01) ==
LOC: M INFU 09:54
PROVIDERS: ATTEND Internal Medicine
DX: G61.81 Chronic inflammatory demyelinating polyneuritis (principal); Z88.1 Allergy status to other antibiotic agents
CPT/HCPCS: 96365; 96366; J1459

== ENCOUNTER 2018-11-13 11:49 | Outpatient (CLI) | payer SELFPAY ==
[~2018-11-13] VITALS: Ht 158.8 cm; Wt 84.1 kg
[2018-11-13 11:55] VITALS: BP 107/58
[2018-11-13] MEDS ORDERED: IMMUNE GLOBULIN 10% 10 GM in APPROPRIATE DILUENT 1 EA IV ONE (12:30)
[2018-11-13] MEDS ORDERED: IMMUNE GLOBULIN 10% 5 GM in APPROPRIATE DILUENT 1 EA IV ONE (12:30)
[2018-11-13] MEDS ORDERED: IMMUNE GLOBULIN 10% 20 GM in APPROPRIATE DILUENT 1 EA IV ONE (12:30)
[2018-11-13 13:00] VITALS: BP 124/60
[2018-11-13 13:33] VITALS: BP 127/65
[2018-11-13 14:00] VITALS: BP 129/65
[2018-11-13 15:22] VITALS: BP 115/55
== END 2018-11-13 15:25 | disposition home or self-care (01) ==
LOC: M INFU 11:49
PROVIDERS: ATTEND Internal Medicine
DX: G61.81 Chronic inflammatory demyelinating polyneuritis (principal); Z88.1 Allergy status to other antibiotic agents
CPT/HCPCS: 96365; 96366; J1459

== ENCOUNTER 2018-11-28 13:17 | Outpatient (CLI) | payer SELFPAY ==
[~2018-11-28] VITALS: Ht 158.8 cm; Wt 84.1 kg
[2018-11-28 13:20] VITALS: BP 116/53
[2018-11-28] MEDS ORDERED: GLIM2TA PO (13:53)
[2018-11-28] MEDS ORDERED: OMEP40CA2 PO (13:54)
[2018-11-28] MEDS ORDERED: CALC600T60 PO (13:55)
[2018-11-28] MEDS ORDERED: MELA5TAB20 PO (13:55)
[2018-11-28] MEDS ORDERED: ACET-683 PO (13:56)
[2018-11-28] MEDS ORDERED: IMMUNE GLOBULIN 10% 10 GM in APPROPRIATE DILUENT 1 EA IV ONE (14:00)
[2018-11-28] MEDS ORDERED: IMMUNE GLOBULIN 10% 5 GM in APPROPRIATE DILUENT 1 EA IV ONE (14:00)
[2018-11-28] MEDS ORDERED: IMMUNE GLOBULIN 10% 20 GM in APPROPRIATE DILUENT 1 EA IV ONE (14:00)
[2018-11-28 14:10] VITALS: BP 98/54
[2018-11-28 14:40] VITALS: BP 108/56
[2018-11-28 15:10] VITALS: BP 107/54
[2018-11-28 15:30] VITALS: BP 100/54
[2018-11-28 16:50] VITALS: BP 97/50
== END 2018-11-28 16:55 | disposition home or self-care (01) ==
LOC: M INFU 13:17
PROVIDERS: ATTEND Internal Medicine
DX: G61.81 Chronic inflammatory demyelinating polyneuritis (principal); Z88.8 Allergy status to other drugs, medicaments and biological substances
CPT/HCPCS: 96365; 96366; J1459

== ENCOUNTER 2018-12-11 13:08 | Outpatient (CLI) | payer SELFPAY ==
[~2018-12-11] VITALS: Ht 158.8 cm; Wt 84.1 kg
[~2018-12-11 13:08] MED LIST changes: +ACET-683 PO; +CALC600T60 PO; +GLIM2TAB29 PO; +IMMUNE GLOBULIN 10% 10 GM in APPROPRIATE DILUENT 1 EA IV ONE; +IMMUNE GLOBULIN 10% 20 GM in APPROPRIATE DILUENT 1 EA IV ONE; +IMMUNE GLOBULIN 10% 5 GM in APPROPRIATE DILUENT 1 EA IV ONE; +LISI-1046 PO; -LISI2.5T5 PO; +MELA5TAB20 PO; +OMEP40CA2 PO
[2018-12-11 13:20] VITALS: BP 129/62
[2018-12-11 13:50] VITALS: BP 111/56
[2018-12-11 14:20] VITALS: BP 102/54
[2018-12-11 14:50] VITALS: BP 112/55
[2018-12-11 15:53] VITALS: BP 111/55
[2018-12-11 16:10] VITALS: BP 113/55
== END 2018-12-11 16:20 | disposition home or self-care (01) ==
LOC: M INFU 13:08
PROVIDERS: ATTEND Internal Medicine
DX: G61.81 Chronic inflammatory demyelinating polyneuritis (principal); Z88.8 Allergy status to other drugs, medicaments and biological substances
CPT/HCPCS: 96365; 96366; J1459

== ENCOUNTER 2018-12-25 13:13 | Outpatient (CLI) | payer SELFPAY ==
[~2018-12-25] VITALS: Ht 158.8 cm; Wt 84.1 kg
[~2018-12-25 13:13] MED LIST changes: -IMMUNE GLOBULIN 10% 10 GM in APPROPRIATE DILUENT 1 EA IV ONE; -IMMUNE GLOBULIN 10% 20 GM in APPROPRIATE DILUENT 1 EA IV ONE; -IMMUNE GLOBULIN 10% 5 GM in APPROPRIATE DILUENT 1 EA IV ONE
[2018-12-25 13:15] VITALS: BP 107/57
[2018-12-25] MEDS ORDERED: IMMUNE GLOBULIN 10% 5 GM in APPROPRIATE DILUENT 1 EA IV ONE (13:30)
[2018-12-25] MEDS ORDERED: IMMUNE GLOBULIN 10% 10 GM in APPROPRIATE DILUENT 1 EA IV ONE (13:30)
[2018-12-25] MEDS ORDERED: IMMUNE GLOBULIN 10% 20 GM in APPROPRIATE DILUENT 1 EA IV ONE (13:30)
[2018-12-25 14:10] VITALS: BP 119/58
[2018-12-25 14:30] VITALS: BP 127/64
== END 2018-12-25 16:30 | disposition home or self-care (01) ==
LOC: M INFU 13:13
PROVIDERS: ATTEND Internal Medicine
DX: G61.81 Chronic inflammatory demyelinating polyneuritis (principal); Z88.1 Allergy status to other antibiotic agents
CPT/HCPCS: 96365; 96366; J1459

== ENCOUNTER 2019-01-08 13:06 | Outpatient (CLI) | payer SELFPAY ==
[~2019-01-08] VITALS: Ht 158.8 cm; Wt 84.1 kg
[2019-01-08 13:05] VITALS: BP 118/57
[2019-01-08 14:00] VITALS: BP 91/55
[2019-01-08] MEDS ORDERED: IMMUNE GLOBULIN 10% 20 GM in APPROPRIATE DILUENT 1 EA IV ONE (14:00)
[2019-01-08] MEDS ORDERED: IMMUNE GLOBULIN 10% 5 GM in APPROPRIATE DILUENT 1 EA IV ONE (14:00)
[2019-01-08] MEDS ORDERED: IMMUNE GLOBULIN 10% 10 GM in APPROPRIATE DILUENT 1 EA IV ONE (14:00)
[2019-01-08 14:30] VITALS: BP 105/51
[2019-01-08 15:00] VITALS: BP 99/48
[2019-01-08 16:00] VITALS: BP 89/53
[2019-01-08 16:25] VITALS: BP 101/52
== END 2019-01-08 16:30 | disposition home or self-care (01) ==
LOC: M INFU 13:06
PROVIDERS: ATTEND Internal Medicine
DX: G61.81 Chronic inflammatory demyelinating polyneuritis (principal); Z88.1 Allergy status to other antibiotic agents
CPT/HCPCS: 96365; 96366; J1459

== ENCOUNTER 2019-01-22 12:51 | Outpatient (CLI) | payer SELFPAY ==
[~2019-01-22] VITALS: Ht 158.8 cm; Wt 84.1 kg
[2019-01-22] MEDS ORDERED: IMMUNE GLOBULIN 10% 20 GM in APPROPRIATE DILUENT 1 EA IV ONE (13:00)
[2019-01-22] MEDS ORDERED: IMMUNE GLOBULIN 10% 5 GM in APPROPRIATE DILUENT 1 EA IV ONE (13:00)
[2019-01-22] MEDS ORDERED: IMMUNE GLOBULIN 10% 10 GM in APPROPRIATE DILUENT 1 EA IV ONE (13:00)
[2019-01-22 13:30] VITALS: BP 114/59
[2019-01-22 14:00] VITALS: BP 126/60
[2019-01-22 14:30] VITALS: BP 137/65
[2019-01-22 15:00] VITALS: BP 137/65
[2019-01-22 16:00] VITALS: BP 111/55
[2019-01-22 16:30] VITALS: BP 133/67
== END 2019-01-22 16:40 | disposition home or self-care (01) ==
LOC: M INFU 12:51
PROVIDERS: ATTEND Internal Medicine
DX: G61.81 Chronic inflammatory demyelinating polyneuritis (principal); Z88.1 Allergy status to other antibiotic agents
CPT/HCPCS: 96365; 96366; J1459

== ENCOUNTER 2019-02-26 09:25 | Outpatient (CLI) | payer SELFPAY ==
[~2019-02-26] VITALS: Ht 158.8 cm; Wt 84.1 kg
[2019-02-26 09:35] VITALS: BP 129/61
[2019-02-26] MEDS ORDERED: IMMUNE GLOBULIN 10% 10 GM in APPROPRIATE DILUENT 1 EA IV ONE (10:00)
[2019-02-26] MEDS ORDERED: IMMUNE GLOBULIN 10% 20 GM in APPROPRIATE DILUENT 1 EA IV ONE (10:00)
[2019-02-26] MEDS ORDERED: IMMUNE GLOBULIN 10% 5 GM in APPROPRIATE DILUENT 1 EA IV ONE (10:00)
[2019-02-26 10:30] VITALS: BP 104/51
[2019-02-26 11:00] VITALS: BP 121/53
[2019-02-26 11:30] VITALS: BP 119/56
[2019-02-26 12:30] VITALS: BP 120/59
[2019-02-26 13:00] VITALS: BP 135/68
== END 2019-02-26 13:25 | disposition home or self-care (01) ==
LOC: M INFU 09:25
PROVIDERS: ATTEND Nurse Practitioner
DX: G61.81 Chronic inflammatory demyelinating polyneuritis (principal)
CPT/HCPCS: 96365; 96366; J1459

== ENCOUNTER 2019-03-19 10:57 | Outpatient (CLI) | payer SELFPAY ==
[~2019-03-19] VITALS: Ht 157.5 cm; Wt 84.1 kg
[2019-03-19 11:13] VITALS: BP 135/69
[2019-03-19] MEDS ORDERED: IMMUNE GLOBULIN 10% 20 GM in APPROPRIATE DILUENT 1 EA IV ONE (11:15)
[2019-03-19] MEDS ORDERED: IMMUNE GLOBULIN 10% 10 GM in APPROPRIATE DILUENT 1 EA IV ONE (11:15)
[2019-03-19] MEDS ORDERED: IMMUNE GLOBULIN 10% 5 GM in APPROPRIATE DILUENT 1 EA IV ONE (11:15)
[2019-03-19 12:30] VITALS: BP 130/57
[2019-03-19 12:56] VITALS: BP 128/67
[2019-03-19 13:33] VITALS: BP 114/55
[2019-03-19 14:30] VITALS: BP 128/61
[2019-03-19 15:02] VITALS: BP 116/58
== END 2019-03-19 15:00 | disposition home or self-care (01) ==
LOC: M INFU 10:57
PROVIDERS: ATTEND Nurse Practitioner
DX: G61.81 Chronic inflammatory demyelinating polyneuritis (principal)
CPT/HCPCS: 96365; 96366; J1459

== ENCOUNTER → 2019-03-24 | Outpatient (CLI) | payer SELFPAY ==
[~2019-03-24] MED LIST changes: +GASTROGRAFIN SOLUTION 30ML (Q9963) As Ordered ONE; +ISOVUE-370 76% 100ML VIAL (Q9967) As Ordered ONE; +MM S100C PO; -STOO100C PO
[2019-03-24 15:42] LABS: ALBUMIN 3.6 GM/DL (3.2-5.2); ALT/SGPT 20 U/L (12-78); BILIRUBIN,TOTAL 0.2 MG/DL (0.2-1.0); BLOOD UREA NITROGEN 6 MG/DL (7-18); CALCIUM LEVEL 9.1 MG/DL (8.5-10.1); CARBON DIOXIDE LEVEL 27 MEQ/L (21-32); CHLORIDE LEVEL 104 MEQ/L (98-107); CREATININE FOR GFR 0.59 MG/DL (0.55-1.30); GLOMERULAR FILTRATION RATE > 60.0 (>51); GLUCOSE, FASTING 111 MG/DL (70-100); POTASSIUM SERUM 3.9 MEQ/L (3.5-5.1); SODIUM LEVEL 140 MEQ/L (136-145); TOTAL PROTEIN 8.1 GM/DL (6.4-8.2)
--- NOTE | 2019-03-24 19:00 | REP ---
CT ABDOMEN AND PELVIS WITH ORAL AND IV CONTRAST: TECHNIQUE: Axial contrast enhanced images from the lung bases to the pubic symphysis using 100 mL Isovue 370 intravenous contrast material with multiplanar reformations. Visualized lung bases demonstrate no infiltrate. The liver appears unremarkable. The patient has had a prior cholecystectomy. There is not significant biliary dilatation. The spleen, adrenals and pancreas are unremarkable. The left kidney is unremarkable. There is mild right hydroureteronephrosis with right perinephric and periureteral stranding. No stone is seen in the right renal collecting system, ureter or bladder. Findings are suggestive of recently passed stone. There is no abdominal aortic aneurysm. There is no adenopathy. There is no free air or free fluid. No bowel thickening is seen. There is no evidence of appendicitis. No pelvic mass is seen. Urinary bladder is not optimally distended and not optimally evaluated but again there is no evidence of intraluminal calculus. There is diastasis of the rectus muscles with focal midline hernia of the anterior pelvic wall containing fat. IMPRESSION: Mild right hydroureteronephrosis with perinephric and periureteral stranding. No evidence of right renal or ureteral calculus. Findings suggest a recently passed stone. No evidence of appendicitis. Electronically Signed by Skyler Carter MD 03/25/2019 11:12 A
== END ==
LOC: M RAD 14:43
PROVIDERS: ATTEND Nurse Practitioner
DX: N13.30 Unspecified hydronephrosis (principal)
CPT/HCPCS: 36415; 74178; 80053; Q9963; Q9967

== ENCOUNTER 2019-04-09 13:00 | Outpatient (CLI) | payer SELFPAY ==
[~2019-04-09] VITALS: Ht 158.8 cm; Wt 84.1 kg
[~2019-04-09 13:00] MED LIST changes: -GASTROGRAFIN SOLUTION 30ML (Q9963) As Ordered ONE; -ISOVUE-370 76% 100ML VIAL (Q9967) As Ordered ONE
[2019-04-09 13:15] VITALS: BP 119/58
[2019-04-09] MEDS ORDERED: IMMUNE GLOBULIN 10% 10 GM in APPROPRIATE DILUENT 1 EA IV ONE (14:00)
[2019-04-09] MEDS ORDERED: IMMUNE GLOBULIN 10% 20 GM in APPROPRIATE DILUENT 1 EA IV ONE (14:00)
[2019-04-09] MEDS ORDERED: IMMUNE GLOBULIN 10% 5 GM in APPROPRIATE DILUENT 1 EA IV ONE (14:00)
[2019-04-09 14:15] VITALS: BP 116/57
[2019-04-09 14:45] VITALS: BP 117/63
[2019-04-09 15:15] VITALS: BP 111/52
[2019-04-09 16:15] VITALS: BP 126/60
[2019-04-09 16:45] VITALS: BP 115/56
== END 2019-04-09 14:55 | disposition home or self-care (01) ==
LOC: M INFU 13:00
PROVIDERS: ATTEND Nurse Practitioner
DX: G61.81 Chronic inflammatory demyelinating polyneuritis (principal)
CPT/HCPCS: 96365; 96366; J1459

== ENCOUNTER 2019-05-07 12:33 | Outpatient (CLI) | payer SELFPAY ==
[~2019-05-07] VITALS: Ht 158.8 cm; Wt 84.1 kg
[2019-05-07 12:35] VITALS: BP 127/60
[2019-05-07] MEDS ORDERED: IMMUNE GLOBULIN 10% 20GM 200ML 20 GM in APPROPRIATE DILUENT 1 EA IV ONE (13:00)
[2019-05-07] MEDS: IMMUNE GLOBULIN 10% 20 GM in APPROPRIATE DILUENT 1 EA IV ONE (13:34)
[2019-05-07] MEDS: IMMUNE GLOBULIN 10% 10 GM in APPROPRIATE DILUENT 1 EA IV ONE (13:35)
[2019-05-07] MEDS: IMMUNE GLOBULIN 10% 5 GM in APPROPRIATE DILUENT 1 EA IV ONE (13:36)
[2019-05-07 14:10] VITALS: BP 115/53
[2019-05-07 14:40] VITALS: BP 110/56
[2019-05-07 15:10] VITALS: BP 104/53
[2019-05-07 15:40] VITALS: BP 108/55
[2019-05-07 16:40] VITALS: BP 123/57
== END 2019-05-07 15:45 | disposition home or self-care (01) ==
LOC: M INFU 12:33
PROVIDERS: ATTEND Nurse Practitioner
DX: G61.81 Chronic inflammatory demyelinating polyneuritis (principal)
CPT/HCPCS: 96365; 96366; J1459

== ENCOUNTER 2019-06-04 13:05 | Outpatient (CLI) | payer SELFPAY ==
[~2019-06-04] VITALS: Ht 158.8 cm; Wt 84.1 kg
[~2019-06-04 13:05] MED LIST changes: -GLIM2TAB PO; +GLIM2TAB4 PO; -GLIM4TAB PO; +GLIM4TAB5 PO; -OMEP40CA2 PO; +OMEP40CA97 PO
[2019-06-04 13:10] VITALS: BP 120/66
[2019-06-04 14:00] VITALS: BP 122/55
[2019-06-04] MEDS ORDERED: IMMUNE GLOBULIN 10% 10 GM in IV 1 EA IV ONE (14:00)
[2019-06-04] MEDS ORDERED: IMMUNE GLOBULIN 10% 20 GM in IV 1 EA IV ONE (14:00)
[2019-06-04] MEDS ORDERED: IMMUNE GLOBULIN 10% 5 GM in IV 1 EA IV ONE (14:00)
[2019-06-04 14:30] VITALS: BP 97/53
[2019-06-04 15:00] VITALS: BP 102/52
[2019-06-04 15:30] VITALS: BP 118/68
[2019-06-04] MEDS ORDERED: PRED50TA PO (16:19)
[2019-06-04 16:20] VITALS: BP 102/50
== END 2019-06-04 16:35 | disposition home or self-care (01) ==
LOC: M INFU 13:05
PROVIDERS: ATTEND Nurse Practitioner
DX: G61.81 Chronic inflammatory demyelinating polyneuritis (principal)
CPT/HCPCS: 96365; 96366; J1459

== ENCOUNTER 2019-06-25 12:23 | Outpatient (CLI) | payer SELFPAY ==
[~2019-06-25] VITALS: Ht 157.5 cm; Wt 84.1 kg
[~2019-06-25 12:23] MED LIST changes: +GLIM2TAB PO; -GLIM2TAB4 PO; +GLIM4TAB PO; -GLIM4TAB5 PO; +OMEP40CA2 PO; -OMEP40CA97 PO; +PRED50TA PO
[2019-06-25 12:30] VITALS: BP 142/75
[2019-06-25] MEDS ORDERED: IMMUNE GLOBULIN 10% 20 GM in IV 1 EA IV ONE (13:00)
[2019-06-25] MEDS ORDERED: IMMUNE GLOBULIN 10% 5 GM in IV 1 EA IV ONE (13:00)
[2019-06-25] MEDS ORDERED: IMMUNE GLOBULIN 10% 10 GM in IV 1 EA IV ONE (13:00)
[2019-06-25 13:35] VITALS: BP 120/46
[2019-06-25 14:05] VITALS: BP 110/61
[2019-06-25 14:35] VITALS: BP 121/59
[2019-06-25 15:05] VITALS: BP 131/62
[2019-06-25 16:05] VITALS: BP 137/63
== END 2019-06-25 16:05 | disposition home or self-care (01) ==
LOC: M INFU 12:23
PROVIDERS: ATTEND Nurse Practitioner
DX: G61.81 Chronic inflammatory demyelinating polyneuritis (principal)
CPT/HCPCS: 96365; 96366; J1459

== ENCOUNTER 2019-07-23 13:07 | Outpatient (CLI) | payer SELFPAY ==
[~2019-07-23] VITALS: Ht 157.5 cm; Wt 84.1 kg
[2019-07-23 12:00] VITALS: BP 125/68
[~2019-07-23 13:07] MED LIST changes: -GLIM2TAB PO; +GLIM2TAB2 PO; -GLIM4TAB PO; +GLIM4TAB3 PO; -OMEP40CA2 PO; +OMEP40CA97 PO
[2019-07-23] MEDS ORDERED: IMMUNE GLOBULIN 10% 5 GM in IV 1 EA IV ONE (13:30)
[2019-07-23] MEDS ORDERED: IMMUNE GLOBULIN 10% 20 GM in IV 1 EA IV ONE (13:30)
[2019-07-23] MEDS ORDERED: IMMUNE GLOBULIN 10% 10 GM in IV 1 EA IV ONE (13:30)
[2019-07-23 13:38] VITALS: BP 131/58
[2019-07-23 14:30] VITALS: BP 122/56
[2019-07-23 15:00] VITALS: BP 120/69
[2019-07-23 15:30] VITALS: BP 142/69
== END 2019-07-23 17:15 | disposition home or self-care (01) ==
LOC: M INFU 13:07
PROVIDERS: ATTEND Nurse Practitioner
DX: G61.81 Chronic inflammatory demyelinating polyneuritis (principal)
CPT/HCPCS: 96365; 96366; J1459

== ENCOUNTER 2019-08-20 13:23 | Outpatient (CLI) | payer SELFPAY ==
[~2019-08-20] VITALS: Ht 158.8 cm; Wt 84.1 kg
[2019-08-20 13:30] VITALS: BP 120/59
[2019-08-20] MEDS ORDERED: IMMUNE GLOBULIN 10% 10 GM in IV 1 EA IV ONE (14:00)
[2019-08-20] MEDS ORDERED: IMMUNE GLOBULIN 10% 20 GM in IV 1 EA IV ONE (14:00)
[2019-08-20] MEDS ORDERED: IMMUNE GLOBULIN 10% 5 GM in IV 1 EA IV ONE (14:00)
[2019-08-20 14:55] VITALS: BP 115/57
[2019-08-20 15:25] VITALS: BP 105/53
[2019-08-20 15:55] VITALS: BP 101/53
[2019-08-20 16:25] VITALS: BP 99/53
[2019-08-20 17:00] VITALS: BP 122/62
== END 2019-08-20 17:15 | disposition home or self-care (01) ==
LOC: M INFU 13:23
PROVIDERS: ATTEND Nurse Practitioner
DX: G61.81 Chronic inflammatory demyelinating polyneuritis (principal); Z88.1 Allergy status to other antibiotic agents
CPT/HCPCS: 96365; 96366; J1459

== ENCOUNTER 2019-09-24 12:47 | Outpatient (CLI) | payer SELFPAY ==
[~2019-09-24] VITALS: Ht 157.5 cm; Wt 90.9 kg
[~2019-09-24 12:47] MED LIST changes: -GLIM2TAB2 PO; +GLIM2TAB4 PO; -GLIM4TAB3 PO; +GLIM4TAB5 PO
[2019-09-24 12:50] VITALS: BP 121/69
[2019-09-24 14:00] VITALS: BP 108/62
[2019-09-24] MEDS ORDERED: IMMUNE GLOBULIN 10% 5 GM in IV 1 EA IV ONE (14:00)
[2019-09-24] MEDS ORDERED: IMMUNE GLOBULIN 10% 20 GM in IV 1 EA IV ONE (14:00)
[2019-09-24] MEDS ORDERED: IMMUNE GLOBULIN 10% 10 GM in IV 1 EA IV ONE (14:00)
[2019-09-24 14:30] VITALS: BP 111/68
[2019-09-24 15:00] VITALS: BP 105/56
[2019-09-24 16:20] VITALS: BP 111/55
== END 2019-09-24 16:25 | disposition home or self-care (01) ==
LOC: M INFU 12:47
PROVIDERS: ATTEND Nurse Practitioner
DX: G61.89 Other inflammatory polyneuropathies (principal); Z88.1 Allergy status to other antibiotic agents
CPT/HCPCS: 96365; 96366; J1459

== ENCOUNTER 2019-11-05 12:58 | Outpatient (CLI) | payer SELFPAY ==
[~2019-11-05] VITALS: Ht 157.5 cm; Wt 90.9 kg
[2019-11-05 13:29] VITALS: BP 124/71
[2019-11-05 13:58] VITALS: BP 96/46
[2019-11-05] MEDS ORDERED: IMMUNE GLOBULIN 10% 10 GM in IV 1 EA IV ONE (14:00)
[2019-11-05] MEDS ORDERED: IMMUNE GLOBULIN 10% 20 GM in IV 1 EA IV ONE (14:00)
[2019-11-05] MEDS ORDERED: IMMUNE GLOBULIN 10% 5 GM in IV 1 EA IV ONE (14:00)
[2019-11-05 14:25] VITALS: BP 124/58
[2019-11-05 15:00] VITALS: BP 104/51
[2019-11-05 16:00] VITALS: BP 118/56
[2019-11-05 16:33] VITALS: BP 121/65
== END 2019-11-05 16:35 | disposition home or self-care (01) ==
LOC: M INFU 12:58
PROVIDERS: ATTEND Nurse Practitioner
DX: G61.81 Chronic inflammatory demyelinating polyneuritis (principal); Z88.1 Allergy status to other antibiotic agents
CPT/HCPCS: 96365; 96366; J1459

== ENCOUNTER 2020-03-28 20:41 | Emergency (ER) | payer SELFPAY ==
[~2020-03-28] VITALS: Ht 157.5 cm; Wt 91.8 kg
[~2020-03-28 20:41] MED LIST changes: +ACET650T61 PO; +CYCL-707 PO; -CYCL10TA PO; -LISI-1046 PO; +LISI2.5T2 PO; -TYLE650T35 PO
[2020-03-28] MEDS ORDERED: ROSU10TA6 (21:01)
[2020-03-28] MEDS ORDERED: TETANUS/DIPHTHERIA TOX ADSORB ADULT 0.5ML SYR/VIAL (90714) IM ONE (22:00)
[2020-03-28 23:56] VITALS: BP 130/62
--- NOTE | 2020-03-29 08:50 | REP ---
REASON: Trauma. There is a cortical irregularity seen involving the triquetral on the lateral view. There is soft tissue swelling. In addition, there is possible cortical irregularity seen involving the trapezium but only on one view. IMPRESSION: Possible triquetral and trapezium fractures. Consider further evaluation with CT. Electronically Signed by Forerst Sánchez DO 03/29/2020 09:55 A
--- NOTE | 2020-03-29 08:51 | REP ---
REASON: Trauma. Only two view were obtained. A trauma series consists of four views. This limited two view exam cannot rule out a fracture. The mortise appears intact. Plantar and retrocalcaneal heel spurs are present. There are some degenerative changes. There is no gross fracture. Electronically Signed by Forrest Sánchez DO 03/29/2020 09:55 A
== END 2020-03-29 00:33 | disposition home or self-care (01) ==
LOC: M ED 20:41
DX: S52.501A Unspecified fracture of the lower end of right radius, initial encounter for closed fracture (principal); S93.401A Sprain of unspecified ligament of right ankle, initial encounter; S30.811A Abrasion of abdominal wall, initial encounter; V00.838A Other accident with motorized mobility scooter, initial encounter; Y92.410 Unspecified street and highway as the place of occurrence of the external cause; E11.9 Type 2 diabetes mellitus without complications; I10 Essential (primary) hypertension; F41.9 Anxiety disorder, unspecified; Z79.899 Other long term (current) drug therapy; Z79.4 Long term (current) use of insulin; Z88.1 Allergy status to other antibiotic agents

== ENCOUNTER → 2020-06-15 | Outpatient (CLI) | payer SELFPAY ==
[~2020-06-15] MED LIST changes: +ROSU10TA6
--- NOTE | 2020-06-22 13:21 | DEXA ---
AP SPINE L1 - L4 0.842 -2.8 -2.2 LT FEMUR TOTAL 0.863 -1.2 -0.6 LT NECK 0.779 -1.9 -0.9 RT FEMUR TOTAL 0.860 -1.2 -0.6 RT NECK 0.875 -1.2 -0.2 TOTAL BODY TOTAL OTHER COMMENTS: There is low bone density of the hips. There is osteoporosis of the spine. FOLLOW-UP: Recommendation for the next bone density exam: 2 years. GERARDO
== END ==
LOC: M WHC 10:34
PROVIDERS: ATTEND Nurse Practitioner
DX: M81.0 Age-related osteoporosis without current pathological fracture (principal)

== ENCOUNTER → 2021-06-16 | Outpatient (CLI) | payer MEDICARE ==
[~2021-06-16] MED LIST changes: +FAMO10TA50 PO; -FAMO1TAB25 PO; -LISI2.5T2 PO; +LISI2.5T9 PO; +OMEP40CA4 PO; -OMEP40CA97 PO
--- NOTE | 2021-06-16 08:41 | REP ---
INDICATION: RUQ PAIN. COMPARISON: Comparison CT study March 24, 2019. TECHNIQUE: Right upper quadrant sonography. FINDINGS: The gallbladder is surgically absent. Scanning through the right upper quadrant the abdomen demonstrates a echogenic mildly enlarged liver with a midclavicular line length of 22 cm. No focal liver lesion is seen. There is evidence of fatty infiltration diffusely. Common bile duct is normal post cholecystectomy measured at 60.7 cm. There is no evidence of ascites. Limited views of pancreas show no abnormality. No right renal abnormality is seen. The right kidney measures 13.9 x 7.2 x 4.9 cm. IMPRESSION: Evidence of fatty infiltration in the enlarged liver post cholecystectomy. Otherwise negative. <Electronically signed by Alejandro Jimenez > 06/16/21 0822
== END ==
LOC: M RAD 06:27
PROVIDERS: ATTEND Physician Assistant
DX: R10.811 Right upper quadrant abdominal tenderness (principal); G61.81 Chronic inflammatory demyelinating polyneuritis; Z90.49 Acquired absence of other specified parts of digestive tract

== ENCOUNTER → 2023-11-05 | Outpatient (CLI) | payer MEDICARE ==
[~2023-11-05] MED LIST changes: -HYDR200T3 PO; +HYDR200T46 PO
== END ==
LOC: M SLEEP 20:00
PROVIDERS: ATTEND Nurse Practitioner Family
DX: G47.33 Obstructive sleep apnea (adult) (pediatric) (principal)

== ENCOUNTER → 2025-01-01 | Outpatient (CLI) | payer MEDICARE ==
[~2025-01-01] MED LIST changes: -ROSU10TA6; +ROSU10TA61
[2025-01-01 19:07] LABS: BASO # 0.1 10^3/uL (0.0-0.2); BASO % 0.9 % (0.0-1.0); EOS # 0.4 10^3/uL (0.0-0.5); EOS % 4.9 % (0.0-3.0); HEMATOCRIT 40.1 % (36.0-47.0); HEMOGLOBIN 12.3 g/dl (12.0-15.5); LYMPH % 24.7 % (24.0-44.0); MEAN CORPUSCULAR HEMOGLOBIN 28.5 pg (27.0-33.0); MEAN CORPUSCULAR HGB CONC 30.7 g/dl (32.0-36.5); MONO # 0.5 10^3/uL (0.0-0.8); MONO % 6.8 % (2.0-8.0); NEUTROPHILS % 62.2 % (36.0-66.0); PLATELET COUNT, AUTOMATED 180 10^3/uL (150-450); RED BLOOD COUNT 4.31 10^6/uL (4.00-5.40)
[2025-01-01 19:09] LABS: C REACTIVE PROTEIN QUANTITATIV 0.69 MG/DL (<1.0)
[2025-01-01 19:12] LABS: ERYTHROCYTE SEDIMENTATION RATE 34 mm/hr (0-30)
== END ==
LOC: M WUC 12:23
PROVIDERS: ATTEND Family Medicine
DX: M25.562 Pain in left knee (principal)